=== PATIENT | male | born 1930 | race Caucasian/White ===

== ENCOUNTER → 2017-02-15 | Outpatient (CLI) | payer OTHER ==
[~2017-02-15] MED LIST: ACET-24 PO; ALL300 PO; ASPI1TAB83 PO; Boost PO; DIPH1TAB87 PO; FINA5TAB4 PO; FLEC100T21 PO; LPR25 PO; NF1094 PO; ONDA4TAB7 SL; PRT40 PO; TRIA0.1C20 TOP; TRMO115 TOP
[2017-02-15 13:24] LABS: HEMATOCRIT 35.9 % (42-52); MEAN CELL VOLUME 94.7 fL (80-100); MEAN CORPUSCULAR HEMOGLOBIN 30.3 pg (25-34); MEAN PLATELET VOLUME 11.1 fL (7.4-10.4); PLATELET COUNT 644 K/uL (130-400); RED BLOOD COUNT 3.79 M/uL (4.7-6.1); WHITE BLOOD COUNT 15.45 K/uL (4.8-10.8)
[2017-02-15 13:40] LABS: ESTIMATED AVERAGE GLUCOSE 120 mg/dl; HA1C FLAG Normal (Normal)
[2017-02-15 13:52] LABS: CALCIUM 9.5 mg/dl (8.5-10.1)
[2017-02-15 13:53] LABS: ALT/SGPT 17 U/L (12-78); BLOOD UREA NITROGEN 23 mg/dl (7-18); BUN/CREATININE RATIO 21.1 (10-20); CARBON DIOXIDE 29 mmol/L (21-32); CHLORIDE 106 mmol/L (98-107); CHOLESTEROL 145 mg/dl (0-200); GLUCOSE 97 mg/dl (70-99); POTASSIUM 4.3 mmol/L (3.5-5.1); SODIUM 141 mmol/L (136-145); TRIGLYCERIDES 197 mg/dl (0-150); VERY LOW DENSITY LIPOPROT CALC 39 mg/dl
[2017-02-15 14:11] LABS: ALB/GLOB RATIO 1.6 (0.9-2); ALKALINE PHOSPHATASE 47 U/L (45-117); AST/SGOT 20 U/L (15-37); CHOLESTEROL/HDL RATIO 4.8; HDL CHOLESTEROL 30 mg/dl
[2017-02-15 14:27] LABS: ECHINOCYTES 1+; TEAR DROP CELLS 1+
[2017-02-15 14:34] LABS: BASO ABS # 0.14 K/uL (0-0.2); BASOPHIL % 0.9 % (0-2); COMPLETE YES; EOSINOPHIL % 1.8 %; LYMPH ABS # 0.54 K/uL (1.2-3.4); LYMPHOCYTE % 3.5 %; MYELOCYTE % 1.8 %; NEUTROPHILS % 87.6 %
== END | disposition home or self-care (01) ==
LOC: C.LABSPEC 12:18
PROVIDERS: ATTEND Internal Medicine
DX: R73.9 Hyperglycemia, unspecified (principal); E78.5 Hyperlipidemia, unspecified; R53.83 Other fatigue; D47.3 Essential (hemorrhagic) thrombocythemia

== ENCOUNTER → 2017-03-28 | Day surgery (SDC) | payer OTHER ==
[2017-03-24 08:30] VITALS: Ht 182.9 cm; Wt 75.9 kg
[~2017-03-28] VITALS: Ht 182.9 cm; Wt 75.9 kg
[~2017-03-28] MED LIST changes: +ATROPINE SULFATE 0.1 MG/ML 5ML SYR IV PRN; +EpHEDrine SULFATE INJ 50 MG/ML AMP IV PRN; +FENTANYL CITRATE INJ 50 MCG/1 ML 2 ML VIAL ONE; +LIDOCAINE HCL 2% 2 ML VIAL (20MG/ML) ONE; -ONDA4TAB7 SL; +PROPOFOL IV EMULSION 10 MG/ML 20 ML VIAL IV ONE
--- NOTE | 2017-03-28 14:48 | Endo History and Physical ---
History & Physical Date of Service: Mar 28, 2017. Chief Complaint: dysphagia Referring Physician: Dr. Mireya Dennis History of Present Illness For EGD Past Surgical History Hx Cardiac Surgery: No Hx Internal Defibrillator: No Hx Pacemaker: No Hx Abdominal Surgery: No Hx of Implantable Prosthesis: No Hx Post-Op Nausea and Vomiting: No Hx Cancer Surgery: No Hx Thoracic Surgery: No Hx Orthopedic: Yes (R/L RCR) Hx Urinary Tract Surgery: Yes (TURP) Family History None Social History Smoking Status: Never Smoker Hx Substance Use: No Hx Alcohol Use: Yes (RARE) Allergies Coded Allergies: Sulfa Antibiotics (Verified Adverse Reaction, Unknown, JOINT PAIN, 03/28/17 ) Current Medications Reported Home Medications Medications Dose Route/Sig Max Daily Dose Days Date Category Dose Instructions Tambocor (Flecainide Acetate) 100 Mg Tab 100 Mg PO BID 12/21/14 Reported Aristocort 0.1% (Triamcinolone Acetonide) Cr 1 Appln TOP BID 06/30/14 Reported apply to arms,chest and facial areas Lopressor (Metoprolol Tartrate) 25 Mg Tab 25 Mg PO BID 06/30/14 Reported Aspirin 81 Mg Tab 81 Mg PO QAM 06/30/14 Reported Proscar (Finasteride) 5 Mg Tab 5 Mg PO QAM 06/30/14 Reported Vital Signs Weight (Kilograms): 75.91 Height (Feet): 6 Height (Inches): 0 Physical Exam General Appearance: WD/WN, + pertinent finding (Vitiligo) Respiratory/Chest: Respiratory effort: no dyspnea Cardiovascular: Heart Auscultation: RRR Abdomen: Inspection & Palpation: soft Assessment and Plan Dysphagia for EGD
--- NOTE | 2017-03-28 15:21 | Discharge Instructions ---
Endoscopy Patient Instructions Date / Procedure(s) Performed Mar 28, 2017. EGD Allergy Information Coded Allergies: Sulfa Antibiotics (Verified Adverse Reaction, Unknown, JOINT PAIN, 03/28/17 ) Discharge Date / Findings Mar 28, 2017. esophageal compression Medication Instructions Restart Stopped Medication(s): resume meds Reported Home Medications Medications Dose Route/Sig Max Daily Dose Days Date Category Dose Instructions Tambocor (Flecainide Acetate) 100 Mg Tab 100 Mg PO BID 12/21/14 Reported Aristocort 0.1% (Triamcinolone Acetonide) Cr 1 Appln TOP BID 06/30/14 Reported apply to arms,chest and facial areas Lopressor (Metoprolol Tartrate) 25 Mg Tab 25 Mg PO BID 06/30/14 Reported Aspirin 81 Mg Tab 81 Mg PO QAM 06/30/14 Reported Proscar (Finasteride) 5 Mg Tab 5 Mg PO QAM 06/30/14 Reported Provider Instructions Activity Restrictions - No exercising or heavy lifting for 24 hours. - Do not drink alcohol the day of the procedure. - Do not drive a car or operate machinery until the day after the procedure. - Do not make any important decisions or sign important papers in 24 hours after the procedure. Following Day: - Return to full activity which may include returning to work/school. Diet Start your diet with liquids and light foods (jello, soup, juice, toast). Then eat your usual diet if not nauseated. Treatment For Common After Affects For mild abdominal pain, bloating, or excessive gas: - Rest - Eat lightly - Lie on right side Follow-Up Information Follow-up with Dr. Mireya Dennis as scheduled Anesthesia Information What You Should Know You have had a procedure that required some medicine to reduce anxiety and discomfort. This treatment is called moderate sedation. After receiving the treatment, you may be sleepy, but you will be able to breathe on your own. The effects of the treatment may last for several hours. Follow these instructions along with Activity/Diet recommendations noted above: * Do NOT do anything where dizziness or clumsiness would be dangerous. * Rest quietly at home today, then you can be up and about tomorrow. * Have a responsible person stay with you the rest of today. * You may have had an I.V. today. If so, you may take the dressing off later today. Recommendations Call your doctor if: * Trouble breathing * Continuous vomiting for more than 24 hours * Temperature above 101 degrees * Severe abdominal pain or bloating * Pain not relieved by pain medicine ordered * There is increased drainage or redness from any incision * A large amount of rectal bleeding greater than 2-3 tablespoons. (If you had a polyp/s removed or have hemorrhoids, a small amount of blood - from the rectum is to be expected.) * You have any unanswered questions or concerns. IN THE EVENT OF A SERIOUS EMERGENCY, GO TO THE NEAREST EMERGENCY ROOM Your discharge instructions were prepared by provider Adrien Zavala. Patient Instructions Signature Page Alcides Guo Patient (or Guardian) Signature/Date: I have read and understand the instructions given to me by my caregivers. Caregiver/RN/Doctor Signature/Date: The above-named patient and/or guardian has received patient instructions on this date. + Original Patient Signature Page (only) stays with chart. Please make copy for patient.
--- NOTE | 2017-03-28 15:25 | GI REPORT ---
Procedure Date: 03/28/2017 2:54 PM Procedure: Upper GI endoscopy Indications: Dysphagia Medicines: Fentanyl 100 micrograms IV, Propofol total dose 100 mg IV, Lidocaine 40 mg IV Complications: No immediate complications. Estimated Blood Loss: Estimated blood loss: none. Procedure: Pre-Anesthesia Assessment: - Prior to the procedure, a History and Physical was performed, and patient medications, allergies and sensitivities were reviewed. The patient's tolerance of previous anesthesia was reviewed. - The risks and benefits of the procedure and the sedation options and risks were discussed with the patient. All questions were answered and informed consent was obtained. After obtaining informed consent, the endoscope was passed under direct vision. Throughout the procedure, the patient's blood pressure, pulse, and oxygen saturations were monitored continuously. The Scope was introduced through the mouth, and advanced to the second part of duodenum. The upper GI endoscopy was accomplished without difficulty. The patient tolerated the procedure well. Findings: A moderate-sized area of extrinsic compression was found at the cricopharyngeus. The entire examined stomach was normal. The examined duodenum was normal. 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 - Normal stomach. - Normal examined duodenum. - No specimens collected. Recommendation: - Discharge patient to home (ambulatory). - Perform a lateral chest x-ray at appointment to be scheduled. - Continue present medications. - Return to primary care physician PRN. Adrien Zavala M.D. Adrien Zavala MD 03/28/2017 3:25:30 PM This report has been signed electronically. Note Initiated On: 03/28/2017 2:54 PM I attest to the content of the Intraoperative Record and orders documented therein, exceptions below
--- NOTE | 2017-03-28 15:26 | Anesthesiology Progress Note ---
Anesthesia Post Op Note Date & Time Mar 28, 2017 at 15:26 Vital Signs Pain Intensity: 0 Vital Signs Past 12 Hours Date Time Temp Pulse Resp B/P (MAP) Pulse Ox O2 Delivery O2 Flow Rate FiO2 03/28/17 14:53 36.5 56 20 151/76 (101) 95 Room Air Notes Mental Status: alert / awake / arousable, participated in evaluation Pt Amnestic to Procedure: Yes Nausea / Vomiting: adequately controlled Pain: adequately controlled Airway Patency, RR, SpO2: stable & adequate BP & HR: stable & adequate Hydration State: stable & adequate Anesthetic Complications: no major complications apparent
[2017-03-28 15:42] VITALS: BP 91/47; PULSE 49; TEMP 36.5; O2SAT 94
== END | disposition home or self-care (01) ==
LOC: C.GI 14:22
PROVIDERS: ATTEND Internal Medicine Gastroenterology
DX: R13.10 Dysphagia, unspecified (principal)

== ENCOUNTER → 2017-03-31 | Outpatient (CLI) | payer OTHER ==
[~2017-03-31] MED LIST changes: -ACET-24 PO; -ALL300 PO; -ATROPINE SULFATE 0.1 MG/ML 5ML SYR IV PRN; -Boost PO; -DIPH1TAB87 PO; -EpHEDrine SULFATE INJ 50 MG/ML AMP IV PRN; -FENTANYL CITRATE INJ 50 MCG/1 ML 2 ML VIAL ONE; -LIDOCAINE HCL 2% 2 ML VIAL (20MG/ML) ONE; -NF1094 PO; -PROPOFOL IV EMULSION 10 MG/ML 20 ML VIAL IV ONE; -PRT40 PO; -TRMO115 TOP
--- NOTE | 2017-03-31 12:25 | DIAGNOSTIC IMAGING REPORT ---
CERVICAL SPINE 7 VIEWS HISTORY: Pain. Neuropathy. NECK PAIN COMPARISON: None. FINDINGS: The cervical spine is visualized from C1 through the superior endplate of T1. There is no fracture. No subluxation. Moderate degenerative disc change throughout Prevertebral soft tissues and the atlantodens interval are intact. 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 Electronically signed by: Alvaro Lopez M.D. 03/31/2017 12:24 PM Dictated Date/Time: 03/31/2017 12:23 PM
== END | disposition home or self-care (01) ==
LOC: C.RAD 11:19
PROVIDERS: ATTEND Internal Medicine
DX: M54.2 Cervicalgia (principal); M50.30 Other cervical disc degeneration, unspecified cervical region

== ENCOUNTER → 2017-07-02 | Outpatient (CLI) | payer OTHER | END | disposition home or self-care (01) | LOC: C.LABSPEC 15:23 | PROVIDERS: ATTEND Internal Medicine | DX: Z12.11 Encounter for screening for malignant neoplasm of colon (principal) ==

== ENCOUNTER → 2017-07-04 | Outpatient (CLI) | payer OTHER ==
[2017-07-04 15:48] LABS: HEMATOCRIT 35.3 % (42-52); MEAN CELL VOLUME 93.1 fL (80-100); MEAN CORPUSCULAR HEMOGLOBIN 30.3 pg (25-34); MEAN CORPUSCULAR HGB CONC 32.6 g/dl (32-36); MEAN PLATELET VOLUME 11.3 fL (7.4-10.4); PLATELET COUNT 662 K/uL (130-400); RED BLOOD COUNT 3.79 M/uL (4.7-6.1)
[2017-07-04 15:56] LABS: ALT/SGPT 16 U/L (12-78); AMYLASE 35 U/L (25-115); AST/SGOT 22 U/L (15-37); BLOOD UREA NITROGEN 18 mg/dl (7-18); BUN/CREATININE RATIO 16.2 (10-20); CALCIUM 9.3 mg/dl (8.5-10.1); CARBON DIOXIDE 27 mmol/L (21-32); CHLORIDE 106 mmol/L (98-107); GLUCOSE 96 mg/dl (70-99); POTASSIUM 4.5 mmol/L (3.5-5.1); SODIUM 140 mmol/L (136-145)
[2017-07-04 16:08] LABS: ALB/GLOB RATIO 1.3 (0.9-2); ALKALINE PHOSPHATASE 56 U/L (45-117); THYROID STIMULATING HORMONE 0.818 uIu/ml (0.300-4.500)
[2017-07-04 16:18] LABS: BASO ABS # 0.26 K/uL (0-0.2); BASOPHIL % 1.8 % (0-2); COMPLETE YES; EOSINOPHIL % 0.9 %; LYMPH ABS # 0.76 K/uL (1.2-3.4); LYMPHOCYTE % 5.3 %; MYELOCYTE % 4.4 %; NEUTROPHILS % 81.5 %; POIKILOCYTOSIS PRESENT
== END | disposition home or self-care (01) ==
LOC: C.LABSPEC 15:25
PROVIDERS: ATTEND Internal Medicine
DX: R10.9 Unspecified abdominal pain (principal); R63.4 Abnormal weight loss; R19.7 Diarrhea, unspecified

== ENCOUNTER → 2017-07-20 | Day surgery (SDC) | payer OTHER ==
[2017-07-19 09:11] VITALS: BMI 23.0
[~2017-07-20] VITALS: Ht 175.3 cm; Wt 71.8 kg
[~2017-07-20] MED LIST changes: +DIPH1TAB PO; +LIDOCAINE HCL 2% 2 ML VIAL (20MG/ML) ONE; +PROPOFOL IV EMULSION 10 MG/ML 20 ML VIAL IV ONE; +SODIUM CHLORIDE 0.9% 500ML 500 ML IV ONE; -TRIA0.1C20 TOP; +TRMO115 TOP
[2017-07-20 13:31] VITALS: Ht 175.3 cm; Wt 71.8 kg
--- NOTE | 2017-07-20 13:34 | Endo History and Physical ---
History & Physical Date of Service: Jul 20, 2017. Chief Complaint: Referring Physician: History of Present Illness Mr. Guo is a 87 year old male wit history of dysphagia, cardiac dysrhythmia and an unspecified myeloproliferative disorder seen in the office for evaluation of diarrhea and weight loss at the request of Dr. Mireya Dennis. Pt was seen and evaluated, chart reviewed. He tells me he [facility]. He tells me has a history of constipation, with change in stool caliber. We started on metamucil with new onset diarrhea about 6 months. Metamucil was stopped but symptoms continuted. He is having between 3-6 stools daily. Brown in color. No black or bloody stools. There is abdominal cramping before a BM that is relieved after a BM. He has been using imodium PRN. With this stools are still watery, but less frequent, maybe 3 stools daily. There is less urgency. He continues to have dysphagia. He had an EGD w/ Dr. Zavala in March for his symptoms with evidence of extrinsic compression at the cricopharyngeus, does not appear he was dilated. He tells me he has had an EGD in the past with dilation with resolution of his symptoms. He does not have have any epigastric pain, nausea, regurgitation, vomiting. He is following up with Dr. Bowen for an unspecified myeloproliferative disorder. Hx of 15-20 lb unintentional weight loss over the past 2-4 months. No fever, chills, CP, SOB. 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 ABD US 04/08/16: No gallstones or biliary ductal dilatation.~Possible fatty infiltration of the liver.~Moderate splenomegaly, increased since ultrasound June 22, 2011.~~Partially obscured pancreas. Colonoscopy 2009: diverticulosis Past Surgical History Hx Cardiac Surgery: Yes (CARDIAC ABLATION - UNSUCCESSFUL) Hx Internal Defibrillator: No Hx Pacemaker: No Hx Abdominal Surgery: No Hx of Implantable Prosthesis: No Hx Post-Op Nausea and Vomiting: No Hx Cancer Surgery: Yes (SKIN CANCER REMOVAL) Hx Thoracic Surgery: No Hx Orthopedic: Yes (RT/LT RCR) Hx Urinary Tract Surgery: Yes (TURP) Family History None Social History Smoking Status: Former Smoker Hx Substance Use: No Hx Alcohol Use: No Allergies Coded Allergies: Sulfa Antibiotics (Verified Adverse Reaction, Unknown, JOINT PAIN, ) Current Medications Reported Home Medications Medications Dose Route/Sig Max Daily Dose Days Date Category Triamcinolone Acetonide (Triamcinolone Acet) 45 Appln/15 Gm Oint 1 Appln TOP BID 07/19/17 Reported Benadryl Allergy (Diphenhydramine Hcl) 25 Mg Tab 1 Tab PO QAM PRN 07/19/17 Reported Tambocor (Flecainide Acetate) 100 Mg Tab 100 Mg PO BID 12/21/14 Reported Lopressor (Metoprolol Tartrate) 25 Mg Tab 25 Mg PO BID 06/30/14 Reported Aspirin 81 Mg Tab 81 Mg PO QAM 06/30/14 Reported Proscar (Finasteride) 5 Mg Tab 5 Mg PO QAM 06/30/14 Reported Vital Signs Weight (Kilograms): 71.82 Height (Feet): 5 Height (Inches): 9 Physical Exam General Appearance: WD/WN, no apparent distress Respiratory/Chest: Respiratory effort: no dyspnea Auscultation: breath sounds normal Cardiovascular: Apical Impulse: not displaced Heart Auscultation: RRR, normal S1 Abdomen: Inspection & Palpation: soft, non-distended Assessment and Plan 87 yo presenting for EGD/Colonoscopy for weight loss, dysphagia and diarrhea.
[2017-07-20 13:37] VITALS: TEMP 36.4
--- NOTE | 2017-07-20 15:13 | GI REPORT ---
Procedure Date: 07/20/2017 2:40 PM Procedure: Upper GI endoscopy Indications: Dysphagia Medicines: General Anesthesia Complications: No immediate complications. Estimated blood loss: None. Estimated Blood Loss: Estimated blood loss: none. Procedure: Pre-Anesthesia Assessment: - Pre-Anesthesia Assessment: - Prior to the procedure, a History and Physical was performed, and patient medications, allergies and sensitivities were reviewed. The patient's tolerance of previous anesthesia was reviewed. Please see Xytis for complete details. - The risks and benefits of the procedure and the sedation options and risks were discussed with the patient. All questions were answered and informed consent was obtained. - Patient identification and proposed procedure were verified prior to the procedure by the physician and the nurse. The procedure was verified in the pre-procedure area in the procedure room. After obtaining informed consent, the endoscope was passed carefully and meticuously under direct vision and only advanced when the lumen was clearly identified, C02 insuflation was utilized throughout the entirity of the procedure. Throughout the procedure, the patient's blood pressure, pulse, and oxygen saturations were monitored continuously. After obtaining informed consent, the endoscope was passed under direct vision. Throughout the procedure, the patient's blood pressure, pulse, and oxygen saturations were monitored continuously. The scope was introduced through the mouth, and advanced to the second part of duodenum. The upper GI endoscopy was accomplished without difficulty. The patient tolerated the procedure well. Findings: A hiatus hernia was present. No endoscopic abnormality was evident in the esophagus to explain the patient's complaint of dysphagia. It was decided, however, to proceed with dilation at the gastroesophageal junction. A TTS dilator was passed through the scope. Dilation with a 15-16.5-18 mm balloon (to a maximum balloon size of 16.5 mm) dilator was performed. The entire examined stomach was normal. The examined duodenum was normal. Impression: - Hiatus hernia. - No endoscopic esophageal abnormality to explain patient's dysphagia. Esophagus dilated. Dilated. - Normal stomach. - Normal examined duodenum. - No specimens collected. Recommendation: - Discharge patient to home (with escort). - Return to referring physician as previously scheduled. - Continue present medications. - Return to GI clinic. Otilio Sawyer MD 07/20/2017 3:13:10 PM This report has been signed electronically. Note Initiated On: 07/20/2017 2:40 PM I attest to the content of the Intraoperative Record and orders documented therein, exceptions below
--- NOTE | 2017-07-20 15:17 | GI REPORT ---
Procedure Date: 07/20/2017 2:39 PM Procedure: Colonoscopy Indications: Chronic diarrhea Medicines: General Anesthesia Complications: No immediate complications. Estimated blood loss: None. Estimated Blood Loss: Estimated blood loss: none. Procedure: Pre-Anesthesia Assessment: - Pre-Anesthesia Assessment: - Prior to the procedure, a History and Physical was performed, and patient medications, allergies and sensitivities were reviewed. The patient's tolerance of previous anesthesia was reviewed. Please see Xtone for complete details. - The risks and benefits of the procedure and the sedation options and risks were discussed with the patient. All questions were answered and informed consent was obtained. - Patient identification and proposed procedure were verified prior to the procedure by the physician and the nurse. The procedure was verified in the pre-procedure area in the procedure room. After obtaining informed consent, the endoscope was passed carefully and meticuously under direct vision and only advanced when the lumen was clearly identified, C02 insuflation was utilized throughout the entirity of the procedure. Throughout the procedure, the patient's blood pressure, pulse, and oxygen saturations were monitored continuously. After I obtained informed consent, the scope was passed under direct vision. Throughout the procedure, the patient's blood pressure, pulse, and oxygen saturations were monitored continuously. The scope was introduced through the anus and advanced to the terminal ileum, with identification of the appendiceal orifice and IC valve. The colonoscopy was performed without difficulty. The patient tolerated the procedure well. The quality of the bowel preparation was good. Findings: Multiple small-mouthed diverticula were found in the sigmoid colon and in the descending colon. Biopsies for histology were taken with a cold forceps from the entire colon for evaluation of microscopic colitis. The terminal ileum appeared normal. Internal hemorrhoids were found during retroflexion. Impression: - Diverticulosis in the sigmoid colon and in the descending colon. Biopsied. - The examined portion of the ileum was normal. - Internal hemorrhoids. Recommendation: - Await pathology results. - Consider Pepto-bismol or cholestyramine pending pathology - Follow up in GI clinic Otilio Sawyer MD 07/20/2017 3:17:05 PM This report has been signed electronically. Note Initiated On: 07/20/2017 2:39 PM I attest to the content of the Intraoperative Record and orders documented therein, exceptions below
--- NOTE | 2017-07-20 15:28 | Discharge Instructions ---
Endoscopy Patient Instructions Date / Procedure(s) Performed Jul 20, 2017. Colonoscopy, EGD Allergy Information Coded Allergies: Sulfa Antibiotics (Verified Adverse Reaction, Unknown, JOINT PAIN, ) Discharge Date / Findings Jul 20, 2017. EGD Impression: - Hiatus hernia. - No endoscopic esophageal abnormality to explain patient's dysphagia. Esophagus dilated. Dilated. - Normal stomach. - Normal examined duodenum. - No specimens collected. Recommendation: - Discharge patient to home (with escort). - Return to referring physician as previously scheduled. - Continue present medications. - Return to GI clinic. Colonoscopy Impression: - Diverticulosis in the sigmoid colon and in the descending colon. Biopsied. - The examined portion of the ileum was normal. - Internal hemorrhoids. Recommendation: - Await pathology results. - Consider Pepto-bismol or cholestyramine pending pathology - Follow up in GI clinic Medication Instructions Stopped Medication(s): ASPRIN Provider Instructions Activity Restrictions - No exercising or heavy lifting for 24 hours. - Do not drink alcohol the day of the procedure. - Do not drive a car or operate machinery until the day after the procedure. - Do not make any important decisions or sign important papers in 24 hours after the procedure. Following Day: - Return to full activity which may include returning to work/school. Diet Start your diet with liquids and light foods (jello, soup, juice, toast). Then eat your usual diet if not nauseated. Treatment For Common After Affects For mild abdominal pain, bloating, or excessive gas: - Rest - Eat lightly - Lie on right side Follow-Up Information Follow-up with DR. ALFONSO JARA as scheduled Anesthesia Information What You Should Know You have had a procedure that required some medicine to reduce anxiety and discomfort. This treatment is called moderate sedation. After receiving the treatment, you may be sleepy, but you will be able to breathe on your own. The effects of the treatment may last for several hours. Follow these instructions along with Activity/Diet recommendations noted above: * Do NOT do anything where dizziness or clumsiness would be dangerous. * Rest quietly at home today, then you can be up and about tomorrow. * Have a responsible person stay with you the rest of today. * You may have had an I.V. today. If so, you may take the dressing off later today. Recommendations Call your doctor if: * Trouble breathing * Continuous vomiting for more than 24 hours * Temperature above 101 degrees * Severe abdominal pain or bloating * Pain not relieved by pain medicine ordered * There is increased drainage or redness from any incision * A large amount of rectal bleeding greater than 2-3 tablespoons. (If you had a polyp/s removed or have hemorrhoids, a small amount of blood - from the rectum is to be expected.) * You have any unanswered questions or concerns. IN THE EVENT OF A SERIOUS EMERGENCY, GO TO THE NEAREST EMERGENCY ROOM Your discharge instructions were prepared by provider Otilio Sawyer. Patient Instructions Signature Page Alcides Guo Patient (or Guardian) Signature/Date: I have read and understand the instructions given to me by my caregivers. Caregiver/RN/Doctor Signature/Date: The above-named patient and/or guardian has received patient instructions on this date. + Original Patient Signature Page (only) stays with chart. Please make copy for patient.
[2017-07-20 15:46] VITALS: BP 143/79; PULSE 52; O2SAT 100
--- NOTE | 2017-07-20 15:51 | Anesthesiology Progress Note ---
Anesthesia Post Op Note Date & Time Jul 20, 2017 at 15:51 Vital Signs Pain Intensity: 0 Vital Signs Past 12 Hours Date Time Temp Pulse Resp B/P (MAP) Pulse Ox O2 Delivery O2 Flow Rate FiO2 07/20/17 15:46 52 18 143/79 (100) 100 Room Air 07/20/17 15:31 49 18 131/86 (101) 98 Room Air 07/20/17 15:16 49 18 126/63 (84) 96 Room Air 07/20/17 13:37 36.4 48 20 162/78 (106) 98 Room Air Notes Mental Status: alert / awake / arousable, participated in evaluation Pt Amnestic to Procedure: Yes Nausea / Vomiting: adequately controlled Pain: adequately controlled Airway Patency, RR, SpO2: stable & adequate BP & HR: stable & adequate Hydration State: stable & adequate Anesthetic Complications: no major complications apparent
== END | disposition home or self-care (01) ==
LOC: C.GI 12:22
PROVIDERS: ATTEND Internal Medicine
DX: K52.9 Noninfective gastroenteritis and colitis, unspecified (principal); K57.30 Diverticulosis of large intestine without perforation or abscess without bleeding; K64.8 Other hemorrhoids; R13.10 Dysphagia, unspecified; K44.9 Diaphragmatic hernia without obstruction or gangrene; I49.9 Cardiac arrhythmia, unspecified; C94.6 Myelodysplastic disease, not elsewhere classified; Z87.891 Personal history of nicotine dependence; Z79.82 Long term (current) use of aspirin; Z79.899 Other long term (current) drug therapy

== ENCOUNTER 2017-08-14 16:10 | Inpatient (IN) | payer OTHER ==
[~2017-08-14] VITALS: Ht 175.3 cm; Wt 70.2 kg
[~2017-08-14 16:10] MED LIST changes: -DIPH1TAB PO; +DIPH1TAB87 PO; -LIDOCAINE HCL 2% 2 ML VIAL (20MG/ML) ONE; -PROPOFOL IV EMULSION 10 MG/ML 20 ML VIAL IV ONE; -SODIUM CHLORIDE 0.9% 500ML 500 ML IV ONE
[2017-08-14] MEDS ORDERED: GI COCKTAIL PO STA (16:27)
[2017-08-14] MEDS ORDERED: ONDANSETRON INJ 2 MG/ML 2 ML VIAL IV STA (16:27)
[2017-08-14] MEDS ORDERED: SODIUM CHLORIDE 0.9% 500ML 500 ML IV STA (16:27)
[2017-08-14] MEDS ORDERED: FAMOTIDINE 20 MG TAB PO ONE (16:30)
[2017-08-14] MEDS ORDERED: LIDOCAINE HCL 2% VISC SOLN 20 ML UDC ONE (16:34)
[2017-08-14] MEDS ORDERED: ALUMINUM/MAGNESIUM SUSP 30 ML UDC ONE (16:34)
--- NOTE | 2017-08-14 16:34 | EMERGENCY ROOM VISIT NOTE ---
History Report prepared by Janessa: Aubrey Rascon Under the Supervision of: Dr. Parag Perkins M.D. First contact with patient: 16:16 Chief Complaint: GI ASSESSMENT Stated Complaint: COLITIS History of Present Illness The patient is an 87 year old male with a past medical history of colitis and thrombocytosis who presents to the ED with a cc of worsening diarrhea beginning three weeks ago. Positive for weight loss, right abdominal pain and weakness. Negative for bloody diarrhea, recent travel and antibiotic use. The patient states that he was constantly constipated four months ago and was put on Citrucel for his symptoms. He notes that the medication caused him to develop diarrhea that has worsened since then. He denies any blood in his diarrhea, but reports that there is a green mucous. He states that he has also taken Pepto Bismol and had a colonoscopy with no relief to his symptoms. The patient notes that he drank spring water when he went to camp recently, but notes that no other campers became sick. Source of History: patient Onset: three weeks ago Position: abdomen Quality: other (diarrhea) Timing: worsening Associated Symptoms: + abdominal pain Note: he denies any bloody diarrhea but nots that there is a mucous in his diarrhea Review of Systems See HPI for pertinent positives and negatives. A total of ten systems were reviewed and were otherwise negative. Past Medical & Surgical Medical Problems: (1) Colitis (2) DIARRHEA, ? METASTATIC DISEASE (3) Thrombocytosis (4) UTI (urinary tract infection) (5) Vitiligo Surgical Problems: (1) H/O prior ablation treatment (2) H/O prostatectomy Family History Cancer Hypertension No significant family history Stroke Social History Smoking Status: Never Smoker Alcohol Use: occasionally Marital Status: Occupation Status: retired Current/Historical Medications Scheduled Aspirin (Aspirin), 81 MG PO QAM Finasteride (Proscar), 5 MG PO QAM Flecainide (Tambocor), 100 MG PO BID Metoprolol Tartrate (Lopressor), 25 MG PO BID Triamcinolone Acet (Triamcinolone Acetonide), 1 APPLN TOP BID Scheduled PRN Diphenhydramine Hcl (Benadryl Allergy), 1 TAB PO QAM PRN for ALLERGIES Allergies Coded Allergies: Sulfa Antibiotics (Verified Adverse Reaction, Unknown, JOINT PAIN, ) Physical Exam Vital Signs Date Time Temp Pulse Resp B/P (MAP) Pulse Ox O2 Delivery O2 Flow Rate FiO2 08/14/17 19:39 37.9 75 18 95/73 94 Room Air 08/14/17 18:40 75 24 121/68 95 08/14/17 17:40 71 21 146/76 95 Room Air 08/14/17 17:14 71 08/14/17 16:14 82 16 126/72 98 Physical Exam GENERAL: Awake, alert, nontoxic appearing, NAD HENT: Normocephalic, atraumatic. EYES: Normal conjunctiva. Sclera non-icteric. NECK: Supple. No nuchal rigidity. FROM. RESPIRATORY: CTAB, no rhonchi, wheezing, crackles CARDIAC: RRR, no MRG ABDOMEN: Soft, NTND, BS+, epigastric and RUQ pain, negative obturators, negative psoas MSK: No chest wall TTP, no LE edema NEURO: GCS 15, CN 2-12 intact, moves all 4s on command SKIN: No rash or jaundice noted. Medical Decision & Procedures ER Provider Diagnostic Interpretation: Radiology results as stated below per my review and radiologist interpretation: ABDOMEN AND PELVIS CT WITH IV CONTRAST FINDINGS: There are multiple bibasilar lobular soft tissue attenuating pulmonary nodules, largest of which is within the posterior basal segment left lower lobe, 1.6 cm in greatest dimension. There is no pneumoperitoneum. The imaged inferior cardiac chambers are mildly enlarged. Coronary arterial calcifications noted. There are innumerable ill-defined low attenuating lesions scattered throughout the hepatic parenchyma, largest of which measure up to 2.5 x 1.9 cm within the right hepatic lobe. The remainder of the lesions measure in the 1-2 cm range. No intrahepatic biliary ductal dilation identified. Splenomegaly redemonstrated measuring up to 17 cm in length, progressed from prior ultrasound 04/08/2016. Ill-defined 5 mm low attenuating focus is noted within the inferior spleen. The gallbladder, pancreas and adrenal glands are unremarkable. Mild atrophy of the left kidney. Low attenuating lesions of the bilateral kidneys are seen, most which are too small to characterize suggesting cyst. The largest lesion is within the inferior pole right kidney, 1.4 cm. There is no renal calculi or hydronephrosis identified. Urinary bladder is unremarkable. Prostamegaly. Mild to moderate atherosclerosis of the abdominal aorta without aneurysm. There is no bulky adenopathy identified. Small sliding-type hiatal hernia. There is no bowel obstruction. Fluid-filled rectosigmoid is noted. Extensive colonic diverticulosis without diverticulitis. Areas of wall thickening noted throughout the sigmoid colon without definite evidence of acute diverticulitis or focal colonic mass. The appendix appears normal. Soft tissues are unremarkable. The bones appear mildly demineralized without suspicious lytic or blastic bony lesions identified. Degenerative changes are seen throughout the spine. IMPRESSION: 1. Innumerable ill-defined low attenuating lesions throughout the liver, largest of which measures up to 2.5 cm are compatible with metastatic disease from unknown primary. 2. Multiple lobulated soft tissue attenuating noncalcified solid pulmonary nodules of the lung bases measuring up to 1.6 cm are also compatible with metastatic disease. 3. Extensive sigmoid colon diverticulosis with areas of wall thickening. No definite evidence of acute diverticulitis or colonic mass. Correlate with colonoscopy. 4. Fluid-filled rectosigmoid suggests diarrheal state. 5. Splenomegaly, increased from comparison ultrasound 04/08/2016. 6. Prostamegaly. Electronically signed by: Nasir Dalal M.D. 08/14/2017 6:31 PM Laboratory Results 08/14/17 16:45 Red Blood Count 3.70, Mean Corpuscular Volume 90.8, Mean Corpuscular Hemoglobin 30.5, Mean Corpuscular Hemoglobin Concent 33.6, Mean Platelet Volume 11.0 08/14/17 16:45 Test 08/14/17 00:00 08/14/17 16:45 Urine Color YELLOW Urine Appearance CLEAR (CLEAR) Urine pH 5.0 (4.5-7.5) Urine Specific [place] 1.023 (1.000-1.030) Urine Protein NEG (NEG) Urine Glucose (UA) NEG (NEG) Urine Ketones TRACE (NEG) Urine Occult Blood NEG (NEG) Urine Nitrite NEG (NEG) Urine Bilirubin NEG (NEG) Urine Urobilinogen NEG (NEG) Urine Leukocyte Esterase NEG (NEG) White Blood Count 19.69 K/uL (4.8-10.8) Red Blood Count 3.70 M/uL (4.7-6.1) Hemoglobin 11.3 g/dL (14.0-18.0) Hematocrit 33.6 % (42-52) Mean Corpuscular Volume 90.8 fL (80-100) Mean Corpuscular Hemoglobin 30.5 pg (25-34) Mean Corpuscular Hemoglobin Concent 33.6 g/dl (32-36) Platelet Count 586 K/uL (130-400) Mean Platelet Volume 11.0 fL (7.4-10.4) RDW Standard Deviation 50.9 fL (36.4-46.3) RDW Coefficient of Variation 15.3 % (11.5-14.5) Neutrophils % (Manual) 84.8 % Lymphocytes % (Manual) 3.4 % Monocytes % (Manual) 6.7 % Basophils % (Manual) 1.7 % (0-2) Metamyelocytes % 1.7 % Myelocytes % 1.7 % Neutrophils # (Manual) 16.70 K/uL (1.4-6.5) Total Absolute Neutrophils 16.70 K/uL (1.4-6.5) Lymphocytes # (Manual) 0.67 K/uL (1.2-3.4) Total Absolute Lymphocytes 0.67 K/uL (1.2-3.4) Monocytes # (Manual) 1.32 K/uL (0.11-0.59) Basophils # (Manual) 0.33 K/uL (0-0.2) Metamyelocytes # 0.33 K/uL (0-0) Myelocytes # 0.33 K/uL (0-0) Tear Drop Cells 1+ Ovalocytes 1+ Prothrombin Time 12.7 SECONDS (9.0-12.0) Prothromb Time International Ratio 1.2 (0.9-1.1) Activated Partial Thromboplast Time 33.5 SECONDS (21.0-31.0) Partial Thromboplastin Ratio 1.3 Anion Gap 8.0 mmol/L (3-11) Est Creatinine Clear Calc Drug Dose 46.2 ml/min Estimated GFR () 66.9 Estimated GFR (Non- 57.7 BUN/Creatinine Ratio 20.0 (10-20) Calcium Level 8.6 mg/dl (8.5-10.1) Total Bilirubin 0.6 mg/dl (0.2-1) Direct Bilirubin 0.1 mg/dl (0-0.2) Aspartate Amino Transf (AST/SGOT) 24 U/L (15-37) Alanine Aminotransferase (ALT/SGPT) 18 U/L (12-78) Alkaline Phosphatase 74 U/L (45-117) Troponin I < 0.015 ng/ml (0-0.045) Total Protein 6.9 gm/dl (6.4-8.2) Albumin 3.6 gm/dl (3.4-5.0) Lipase 125 U/L (73-393) Laboratory results reviewed by me Medications Administered Medications (Trade) Dose Ordered Sig/Lisandro Route Start Time Stop Time Status Last Admin Dose Admin Ondansetron HCl (Zofran Inj) 4 mg NOW STAT IV 08/14/17 16:27 08/14/17 16:30 DC 08/14/17 16:27 4 MG Sodium Chloride 500 ml @ 500 mls/hr Q1H STAT IV 08/14/17 16:27 08/14/17 17:26 DC 08/14/17 16:58 500 MLS/HR Miscellaneous Medication (Gi Cocktail) 24 ml ONE STAT PO 08/14/17 16:27 08/14/17 16:30 DC 08/14/17 16:27 24 ML Famotidine (Pepcid Tab) 20 mg NOW ONCE PO 08/14/17 16:30 08/14/17 16:31 DC 08/14/17 16:57 20 MG Al Hydroxide/Mg Hydroxide (Maalox Susp) 30 ml STK-MED ONCE .ROUTE 08/14/17 16:34 08/14/17 16:35 DC 08/14/17 16:57 30 ML Lidocaine HCl (Viscous Lidocaine 2% Soln) 20 ml STK-MED ONCE .ROUTE 08/14/17 16:34 08/14/17 16:35 DC 08/14/17 16:58 20 ML ECG Indication: abdominal pain Rate (beats per minute): 73 Rhythm: sinus rhythm Findings: 1st degree AV block, other (boarderline wide QRSm no STS or TWI) ED Course 1620: The patient was evaluated in room B3. A complete history and physical exam was performed. 1847: I spoke to Dr. Corea - Internal Medicine, [facility]. He will accept the patient and evaluate him for further care. 1854: Upon reexamination, the patient was stable. I discussed the test results and treatment plan with him. The patient will be evaluated for further management. Medical Decision The patient is a 87 year old male with a past medical history of high platelets and thrombocytosis who presents to the ED with a cc of worsening diarrhea beginning three weeks ago. Positive for weight loss, right abdominal pain and weakness. Negative for bloody diarrhea, recent travel and antibiotic use. Differential diagnosis: Etiologies such as appendicitis, diverticulitis, PUD, biliary pathology, UTI, pancreatitis, obstruction, mesenteric ischemia, aortic pathology, infections, inflammatory bowel disease, renal colic, as well as others were entertained. Patient was seen and evaluated the bedside. Patient does have a prior history of thrombus or ptosis and hypertension. Patient has had EGD and colonoscopy completed back in July. Patient has had a history of diarrhea since possibly May. Over the last 3 weeks as gotten progressively worse. Patient states that he's had worsening weakness and then over the last 2 days he's been on the commode approximately 18 times. Patient does take a baby aspirin. Patient states that he has been trying to take some Metamucil as well as some Pepto-Bismol is not helping symptoms. On patient exam he did have some upper abdominal tenderness to palpation. Patient did have blood work, EKG, troponin, stool studies, and CT of the abdomen pelvis ordered along with symptomatic treatment. Patient did have elevated white blood cell count 19,000. Patient's LFTs and troponin are negative. Patient does not have any ischemic changes on his EKG. Patient did have a CTA was concerning for metastatic disease with a possible liver primary. Given the patient's weakness with diarrheal symptoms and elevated white count I did speak to the patient's PCP. Patient was admitted for further evaluation and treatment. Medication Reconcilliation Current Medication List: was personally reviewed by me Blood Pressure Screening Patient's blood pressure: Normal blood pressure Blood pressure disposition: Did not require urgent referral Consults Time Called: 1839 Consulting Physician: Dr. Corea - Internal Medicine, [facility] Returned Call: [phone] Discussed the patient's case. The patient will be evaluated for further treatment and disposition. Impression Primary Impression: Abdominal pain Additional Impressions: Diarrhea Liver cancer Scribe Attestation The scribe's documentation has been prepared under my direction and personally reviewed by me in its entirety. I confirm that the note above accurately reflects all work, treatment, procedures, and medical decision making performed by me. Departure Information Dispostion Being Evaluated By Hospitalist Referrals Hernesto Jorgensen M.D. (PCP) Forms HOME CARE DOCUMENTATION FORM, IMPORTANT VISIT INFORMATION Patient Instructions [facility] Problem Qualifiers Primary Impression: Abdominal pain Abdominal location: epigastric Qualified Codes: R10.13 - Epigastric pain Additional Impressions: Diarrhea Diarrhea type: unspecified type Qualified Codes: R19.7 - Diarrhea, unspecified Liver cancer Liver malignancy type: unspecified liver malignancy Qualified Codes: C22.9 - Malignant neoplasm of liver, not specified as primary or secondary
[2017-08-14 16:54] LABS: HEMATOCRIT 33.6 % (42-52); MEAN CELL VOLUME 90.8 fL (80-100); MEAN CORPUSCULAR HEMOGLOBIN 30.5 pg (25-34); MEAN CORPUSCULAR HGB CONC 33.6 g/dl (32-36); PLATELET COUNT 586 K/uL (130-400); WHITE BLOOD COUNT 19.69 K/uL (4.8-10.8)
[2017-08-14 17:03] LABS: INR 1.2 (0.9-1.1); PARTIAL THROMBOPLASTIN RATIO 1.3; PROTHROMBIN TIME (PATIENT) 12.7 SECONDS (9.0-12.0)
[2017-08-14 17:13] LABS: ALT/SGPT 18 U/L (12-78); AST/SGOT 24 U/L (15-37); BLOOD UREA NITROGEN 23 mg/dl (7-18); CALCIUM 8.6 mg/dl (8.5-10.1); CARBON DIOXIDE 25 mmol/L (21-32); CHLORIDE 101 mmol/L (98-107); CREATININE 1.15 mg/dl (0.60-1.40); GLUCOSE 107 mg/dl (70-99); POTASSIUM 4.5 mmol/L (3.5-5.1); SODIUM 134 mmol/L (136-145)
[2017-08-14 17:18] LABS: ALKALINE PHOSPHATASE 74 U/L (45-117)
[2017-08-14 17:22] LABS: BASO ABS # 0.33 K/uL (0-0.2); BASOPHIL % 1.7 % (0-2); COMPLETE YES; LYMPH ABS # 0.67 K/uL (1.2-3.4); LYMPHOCYTE % 3.4 %; META ABS # 0.33 K/uL (0-0); METAMYELOCYTE % 1.7 %; MYELOCYTE % 1.7 %; NEUTROPHILS % 84.8 %; OVALOCYTES 1+; TEAR DROP CELLS 1+
[2017-08-14 17:33] LABS: URINE APPEARANCE CLEAR (CLEAR); URINE BILIRUBIN NEG (NEG); URINE COLOR YELLOW; URINE NITRITE NEG (NEG); URINE SPECIFIC GRAVITY 1.023 (1.000-1.030); UROBILINOGEN NEG (NEG); ZZUR CULT IF INDIC CLEAN CATCH NO
[2017-08-14 17:34] LABS: MANUAL MICROSCOPIC REQUIRED? NO; REVIEW REQ? NO
[2017-08-14] MEDS ORDERED: OPTIRAY 320 IV PRN ×2 (18:15→21:00)
--- NOTE | 2017-08-14 18:33 | DIAGNOSTIC IMAGING REPORT ---
ABDOMEN AND PELVIS CT WITH IV CONTRAST CT DOSE: 295.14 mGy.cm HISTORY: Acute generalized abdominal pain. Initial exam ab pain TECHNIQUE: Multiaxial CT images of the abdomen and pelvis were performed following the use of intravenous contrast. 116 mL Optiray 320 IV contrast was administered. A dose lowering technique was utilized adhering to the principles of ALARA. COMPARISON STUDY: Abdominal ultrasound 04/08/2016. FINDINGS: There are multiple bibasilar lobular soft tissue attenuating pulmonary nodules, largest of which is within the posterior basal segment left lower lobe, 1.6 cm in greatest dimension. There is no pneumoperitoneum. The imaged inferior cardiac chambers are mildly enlarged. Coronary arterial calcifications noted. There are innumerable ill-defined low attenuating lesions scattered throughout the hepatic parenchyma, largest of which measure up to 2.5 x 1.9 cm within the right hepatic lobe. The remainder of the lesions measure in the 1-2 cm range. No intrahepatic biliary ductal dilation identified. Splenomegaly redemonstrated measuring up to 17 cm in length, progressed from prior ultrasound 04/08/2016. Ill-defined 5 mm low attenuating focus is noted within the inferior spleen. The gallbladder, pancreas and adrenal glands are unremarkable. Mild atrophy of the left kidney. Low attenuating lesions of the bilateral kidneys are seen, most which are too small to characterize suggesting cyst. The largest lesion is within the inferior pole right kidney, 1.4 cm. There is no renal calculi or hydronephrosis identified. Urinary bladder is unremarkable. Prostamegaly. Mild to moderate atherosclerosis of the abdominal aorta without aneurysm. There is no bulky adenopathy identified. Small sliding-type hiatal hernia. There is no bowel obstruction. Fluid-filled rectosigmoid is noted. Extensive colonic diverticulosis without diverticulitis. Areas of wall thickening noted throughout the sigmoid colon without definite evidence of acute diverticulitis or focal colonic mass. The appendix appears normal. Soft tissues are unremarkable. The bones appear mildly demineralized without suspicious lytic or blastic bony lesions identified. Degenerative changes are seen throughout the spine. IMPRESSION: 1. Innumerable ill-defined low attenuating lesions throughout the liver, largest of which measures up to 2.5 cm are compatible with metastatic disease from unknown primary. 2. Multiple lobulated soft tissue attenuating noncalcified solid pulmonary nodules of the lung bases measuring up to 1.6 cm are also compatible with metastatic disease. 3. Extensive sigmoid colon diverticulosis with areas of wall thickening. No definite evidence of acute diverticulitis or colonic mass. Correlate with colonoscopy. 4. Fluid-filled rectosigmoid suggests diarrheal state. 5. Splenomegaly, increased from comparison ultrasound 04/08/2016. 6. Prostamegaly. Electronically signed by: Nasir Dalal M.D. 08/14/2017 6:31 PM Dictated Date/Time: 08/14/2017 6:19 PM
--- NOTE | 2017-08-14 20:29 | DIAGNOSTIC IMAGING REPORT ---
CHEST ONE VIEW PORTABLE HISTORY: 87 years-old Male weight loss acute weight loss COMPARISON: Chest radiographs 10/20/2015, CT abdomen and pelvis 08/14/2017 TECHNIQUE: Portable upright AP view of the chest FINDINGS: Cardiomediastinal and hilar silhouettes are within normal limits. The previously noted multiple bilateral bibasilar pulmonary nodules are not definitively seen on this study. There is no pneumothorax, pleural effusion or lobar airspace consolidation. Bones of the chest are grossly intact. Post surgical changes of the left humeral head. Calcified hilar lymph nodes are seen suggesting prior granulomatous disease. IMPRESSION: 1. No acute cardiopulmonary process. 2. Previously noted multiple bibasilar pulmonary nodules are not identified on this study. The above report was generated using voice recognition software. It may contain grammatical, syntax or spelling errors. Electronically signed by: Nasir Dalal M.D. 08/14/2017 8:28 PM Dictated Date/Time: 08/14/2017 8:25 PM
--- NOTE | 2017-08-14 20:43 | History and Physical ---
History & Physical Date of Service Aug 14, 2017. History & Physical ADMISSION DATE : 08/14/2017 CHIEF COMPLAINT : 87-year-old male admitted through the emergency room with multiple medical problems including persistent diarrhea, dehydration, suspected metastatic disease. PRESENT ILLNESS : Patient with history of supraventricular tachycardia with unsuccessful ablation attempt at [facility] in the past, vitiligo, chronic diarrhea, thrombocytosis, hyperleukocytosis. Patient has been complaining of persistent diarrhea. Over the last few months he was seen by different directional drill operator. He has had an EGD, colonoscopy. No significant abnormalities have been noted on exam. Pathology report from the biopsies taken at this time of his colonoscopy showed evidence of lymphocytic colitis. Dr. Sawyer recommended Pepto-Bismol. Patient also has GI follow-up sometime in September. Patient has been complaining of persistent diarrhea. It has been gradually getting wars. Since yesterday until today he had about 15 bowel movements. He denied any associated fever. No chills. No blood in his stool that he could notice. No nausea or vomiting. His appetite has definitely declined. He has lost significant amount of weight. Difficult to quantify. He has been feeling extremely weak. Unable to take care of himself at home. He came to the emergency room today. The most striking finding is the abnormal CT scan of the abdomen and pelvis. Patient has multiple hepatic nodules suspicious for metastatic disease. Also on the cuts of the lower lungs to worse also suspicion of multiple nodularities also suspicious for metastatic disease. Patient did stop smoking back in 1979. He does have a history of smoking prior to that between one half and one pack per day since age 20 until 1979. Patient is being admitted for further evaluation. PAST MEDICAL HISTORY : * Supraventricular tachycardia. Failed ablation. That was done many years ago. * TURP in the remote past * Bilateral inguinal hernia repair also in the remote past. * Status post bilateral cataract surgery and post surgery laser treatments Schatzki's ring requiring dilatation * Vitiligo has had dermatology evaluation and has been treated with ultraviolet light. SOCIAL HISTORY : He is a . Had 3 daughters. As noted above he smoked from age 20 until about 1979 when he stopped. He did smoke anywhere between half a pack to 1 pack per day. No alcohol. No excessive coffee tea or soft drinks. He retired in 1994. He worked with the [employer]. He was [employer]. FAMILY HISTORY : His mother at age 93 had multiple strokes and she was in [facility]. His father at age 89. He fell down steps. He hit his head. He had cardiac arrest after that and did not survive. He had 5 sisters. One sister in her 60s she had breast cancer, one sister age 78 of emphysema. She was a smoker. One sister at age 9304 and age. One sister at age 94. One sister is alive and in [facility] and she is 88 years old. Children alive and well. ALLERGIES : SULFA CURRENT MEDICATIONS : As noted on his home medication list REVIEW OF SYSTEMS : He is feeling quite tired and weak. He has been losing weight. Poor appetite. Denied any headache or dizziness. He does feel lightheaded. No change in his vision. He was glasses. He has hearing aids. He has dentures. No neck pain. No chest pain. No shortness of breath. Nonspecific abdominal pain. Intermittent. No nausea no vomiting. No blood in his stool. No urinary problem. No pain in his back or extremities. No ankle edema. PHYSICAL EXAMINATION : General: Well-developed. Chronically in. Recorded weight 70.4 kg, height 174 cm, BMI 23.3 Vital signs: Blood pressure 126/72, pulse 82, respirations 16, oxygen saturation 98% on room air. His oral temperature was 37.6 when I checked it in the emergency room. He felt warm to touch. We checked his rectal temperature and it was 37.9. Skin is warm and dry. Multiple areas of vitiligo. Multiple ecchymotic areas. HEENT he wears glasses. Post cataract surgery. Hearing aids. Dentures. Bilateral arcus senilis. Neck is supple. Nontender. No JVD. Normal cardiac pulses. Heart regular heart sounds with 2/6 systolic murmur Lungs are clear Axilla no adenopathy Breasts no evidence of any mass Abdomen is soft nontender. No organomegaly no masses. Good bowel sounds. Back no spinal or CVA tenderness Groins no adenopathy no hernia Extremities no edema clubbing or cyanosis. No joint or muscle tenderness. Flat feet. Good pulses. Neurological examination: He is alert and oriented without evidence of any lateralized deficit LABORATORY TESTS : WBC count 19,690, hemoglobin 11.3, hematocrit 33.6, platelet count 586,000. Differential showed evidence of left shift. Prothrombin time 12.7, INR 1.2, PTT 33.5. Sodium 134, potassium 4.5, chloride 101, CO2 25, BUN/creatinine 23, creatinine 1.15, glucose 107, calcium 8.6, total bilirubin 0.6, AST 24, AST 18, alkaline phosphatase 75, total protein 6.9, albumin 3.6, lipase 125, troponin I less than 0.015. Urinalysis showed trace ketones without any other abnormalities. CT scan of the abdomen and pelvis showed multiple lesions throughout the liver the largest measured 2.5 cm in diameter. Compatible with metastatic disease. Multiple solid pulmonary nodules of the lung bases measuring up to 1.6 cm also compatible with metastatic disease. Extensive sigmoid diverticulosis with areas of fall thickening. No definite evidence of acute diverticulitis or any masses. Splenomegaly is also noted. Increased compared to prior study from 04/2016. Enlarged prostate also noted. ASSESSMENT : * Persistent diarrhea * Dehydration * Generalized weakness * Multiple hepatic nodules suspicious for metastatic disease * Multiple pulmonary nodules suspected metastatic disease * Remote history of smoking. He stopped back in 1979 * History of supraventricular tachycardia with failed ablation * Thrombocytosis * Hyperleukocytosis * Vitiligo PLAN : Patient was admitted to medical bed. Resuscitation level I. All his laboratory tests were ordered. CT scan of the chest with contrast was ordered. CEA was also ordered. His imaging studies are consistent with metastatic disease. Keeping in mind patient just had an EGD and a colonoscopy done within the last couple of months. No abnormalities were noted indicated any malignancy. We will complete his workup. Requested to thoracic surgery consultation from Dr. Josh Munguia. Also requested oncology consultation from Dr. Bowen. Dr. Bowen has seen the patient in the past for evaluation of his thrombocytosis and hyperleukocytosis. He did have a bone marrow aspiration and biopsy done. I spoke with the patient and his family. His daughter and her were with him in the emergency room. I explained to them the findings so far and the planned evaluation
[2017-08-14] MEDS: SODIUM CHLORIDE 0.9% 1000ML 1,000 ML IV SCH (21:09)
[2017-08-14 21:22] VITALS: BP 134/80; PULSE 72; TEMP 37; O2SAT 97; Ht 175.3 cm; Wt 70.2 kg
--- NOTE | 2017-08-14 21:32 | DIAGNOSTIC IMAGING REPORT ---
CHEST CT WITH CONTRAST CT DOSE: 257.50 mGy.cm HISTORY: Acute weight loss with abdominal pain. Hepatic and pulmonary metastasis seen on comparison CT of the abdomen. multiple nodules, ? metatatic disease TECHNIQUE: Multiaxial CT images of the chest were performed following the intravenous administration of contrast. 116 mL Optiray 320 IV contrast was administered. A dose lowering technique was utilized adhering to the principles of ALARA. COMPARISON: Chest radiograph and CT abdomen and pelvis of same day. FINDINGS: Thyroid is homogeneous without focal nodule identified. Mildly prominent right peritracheal lymph node measures 12 x 9 mm, image 110 series 4 with a normal fatty hilum, likely physiologic. There is a 1.3 x 1.6 cm nodular density interposed between the esophagus and descending thoracic aorta, image 130 series 4 which is indeterminate. Suspicious for a small esophageal diverticulum. Mildly prominent AP window lymph nodes are seen measuring up to 9 mm in short axis. Mildly prominent right hilar lymph node on image 153 series 4 measures up to 9 mm in short axis. Heart is normal in size without pericardial effusion. Thoracic aorta is normal in both course and caliber without dissection or aneurysm. Mild mixed plaquing of the aorta. The opacified pulmonary arterial tree is unremarkable without focal filling defect identified. There is an aggressive appearing spiculated irregular soft tissue attenuating mass of the right hilum which invades the bronchus intermedius and surrounds the right lower lobe lobar and segmental bronchi measuring up to 5.9 x 2.2 x 3.6 cm in AP, transverse and craniocaudal dimensions respectively. This lesion narrows and displaces adjacent subsegmental pulmonary arterial branches as seen on image 147 series 4. There are multiple satellite nodules of the right lower lobe involving both the superior and basal segments. Largest on the right is within the basal right lower lobe, 1.6 x 1.2 cm on image 177 series 4. Additional scattered soft tissue attenuating pulmonary nodules are present within the bilateral lower lobes, lingula and upper lobes. Largest of which measures 1.8 cm within the left lower lobe. There is a calcified granuloma of the right middle lobe. No pneumothorax or malignant effusion identified. Innumerable ill-defined low attenuating lesions throughout the liver compatible with hepatic metastasis. Splenomegaly. Soft tissues are unremarkable. There are degenerative changes about the spine. Ill-defined low attenuating 9 mm focus involves the right aspect of the C7 vertebral body. IMPRESSION: 1. Spiculated irregular right hilar soft tissue mass invades the bronchus intermedius and tracks along the right lower lobe bronchi measuring up to 5.9 x 2.2 x 3.6 cm, suggesting primary bronchogenic carcinoma such as small cell carcinoma. Further evaluation with bronchoscopy and tissue sampling recommended. 2. Multiple satellite metastatic nodules of the of the bilateral upper and lower lobes. 3. Innumerable ill-defined low attenuating lesions of the liver redemonstrated compatible with metastasis. 4. Mildly prominent mediastinal adenopathy as above, suspicious for possible lymphatic metastasis. Circumscribed 1.6 cm structure interposed between the esophagus and descending thoracic aorta suggests esophageal diverticulum or mildly enlarged lymph node. Attention at follow-up recommended. 5. Ill-defined area of decreased attenuation involving the right lateral aspect of the C7 vertebral body is equivocal for lytic metastasis. Electronically signed by: Nasir Dalal M.D. 08/14/2017 9:31 PM Dictated Date/Time: 08/14/2017 9:08 PM
[2017-08-14 22:00] VITALS: BP 133/78; PULSE 70; O2SAT 98
[2017-08-14] MEDS: METOPROLOL TARTRATE 25 MG TAB PO SCH (22:02)
[2017-08-14] MEDS: FLECAINIDE ACETATE 100 MG TAB PO SCH (22:03)
[2017-08-14] MEDS: HEPARIN SOD 5000 UNIT/0.5 ML CARP SQ SCH (22:08)
--- NOTE | 2017-08-14 23:15 | History and Physical ---
History & Physical Date of Service Aug 14, 2017. History & Physical ADDENDUM to the dictated history and physical : Since admission the following additional findings are noted: * Stool tested positive for Clostridium difficile * CT scan of the chest with contrast showed a spiculated irregular right hilar soft tissue mass invading the bronchus intermedius and tracks along the right lower lobe bronchi measuring 5.9 x 2.2 x 3.6 cm suggesting primary bronchogenic carcinoma such as small cell carcinoma. Multiple satellite metastatic nodules noted bilaterally. A suspicious area involving the right lateral aspect of T7 vertebral body was also noted. Additional plan: * started on vancomycin 125 mg 4 times a day * Proceeded with the evaluation. 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
[2017-08-15] VITALS: O2SAT 97
[2017-08-15] MEDS: ACETAMINOPHEN 500 MG TAB PO PRN ×4 (02:21→19:43)
[2017-08-15 04:00] VITALS: BP 107/67; PULSE 57; TEMP 37; O2SAT 94
[2017-08-15] MEDS: SODIUM CHLORIDE 0.9% 1000ML 1,000 ML IV SCH ×2 (05:44→18:55)
[2017-08-15 06:14] LABS: BASO % 0.3 %; BASO ABS # 0.04 K/uL (0-0.2); COMPLETE YES; EOS % 0.8 %; HEMATOCRIT 28.8 % (42-52); IG% 2.2 %; LYMPH ABS # 0.78 K/uL (1.2-3.4); MEAN CORPUSCULAR HEMOGLOBIN 30.4 pg (25-34); MEAN PLATELET VOLUME 11.1 fL (7.4-10.4); MONO % 10.2 %; NEUT % 80.5 %; PLATELET COUNT 486 K/uL (130-400); RED BLOOD COUNT 3.13 M/uL (4.7-6.1)
[2017-08-15 06:55] LABS: BUN/CREATININE RATIO 18.9 (10-20); CALCIUM 8.2 mg/dl (8.5-10.1); CREATININE 1.12 mg/dl (0.60-1.40); POTASSIUM 4.2 mmol/L (3.5-5.1)
[2017-08-15 06:57] LABS: ALB/GLOB RATIO 1.1 (0.9-2)
[2017-08-15 07:20] VITALS: BP 122/62; PULSE 58; TEMP 36.9; O2SAT 96
[2017-08-15] MEDS: VANCOMYCIN HCL 125 MG/2.5ML SOLN PO SCH ×4 (08:00→19:36)
[2017-08-15] MEDS: RASPBERRY SYRUP 5 ML UDP PO SCH ×4 (08:00→19:36)
[2017-08-15] MEDS: FLECAINIDE ACETATE 100 MG TAB PO SCH ×2 (08:01→19:41)
[2017-08-15] MEDS: METOPROLOL TARTRATE 25 MG TAB PO SCH ×2 (08:01→19:40)
[2017-08-15] MEDS: FINASTERIDE 5 MG TAB PO SCH (08:02)
[2017-08-15] MEDS: HEPARIN SOD 5000 UNIT/0.5 ML CARP SQ SCH ×2 (08:10→20:53)
--- NOTE | 2017-08-15 11:38 | DIAGNOSTIC IMAGING REPORT ---
Brain MRI WITH AND WITHOUT CONTRAST HISTORY: Lung cancer. METASTATIC DISEASE TECHNIQUE: Multiplanar multisequence MRI of the brain was performed both before and after the intravenous administration of contrast. COMPARISON STUDY: None. FINDINGS: There is no mass, hematoma, midline shift, or acute infarct. The paranasal sinuses are clear. The mastoid air cells are clear. The ventricles and sulci demonstrate mild age-related involutional changes. Scattered foci of T2 hyperintensity seen within the periventricular and subcortical white matter are nonspecific but suggestive of mild microvascular ischemic changes. The major vascular flow voids at the skull base are well-maintained. 5 mm faint focus of enhancement within the left temporal lobe seen on axial image 14 and coronal image 12. There is no associated edema or restricted diffusion at this location. IMPRESSION: A 5 mm faint focus of enhancement within left temporal lobe without associated edema or restricted diffusion. Therefore, this is indeterminate and could represent artifact or a small capillary telangectasia. However, given the history of lung cancer a tiny metastatic focus is not entirely excluded. Consider one month brain MRI follow-up for confirmation. Electronically signed by: Roger Torres M.D. 08/15/2017 11:37 AM Dictated Date/Time: 08/15/2017 11:26 AM
--- NOTE | 2017-08-15 11:39 | SURGICAL CONSULTATION ---
DATE OF CONSULTATION: 08/15/2017 REASON FOR CONSULTATION: Apparent metastatic lung cancer. HISTORY OF PRESENT ILLNESS: This is a delightful 87-year-old male who does have a history of light cigarette smoking and he quit smoking in 1979. He smoked for about 25 years, but states he smoked between a third and half a pack a day. The patient was in his usual state of health until the last few months when started losing weight. He has lost between 15 and 20 pounds. He also became much weaker. He developed diarrhea a few months ago and presented with essentially dehydration. He states he feels much better today. A CT scan was obtained of his abdomen and he was found to have not only pulmonary masses, which were confirmed on a later CT scan, but also liver abnormalities that are probably metastases. Dr. Corea has kindly asked me to see this patient for a diagnostic workup. PAST MEDICAL HISTORY: 1. Supraventricular tachycardia in the past. 2. Benign prostatic hypertrophy. 3. Bilateral inguinal hernias. 4. Vitiligo. 5. Cataracts. 6. History of cigarette smoking. 7. Probable gastroesophageal reflux disease with Schatzki's rings, requiring dilatation. PAST SURGICAL HISTORY: 1. Bilateral inguinal herniorrhaphies. 2. Transurethral resection of his prostate. 3. Attempted ablation for supraventricular tachycardia. 4. Bilateral cataract surgery. 5. Ultraviolet light treatment from dermatology. 6. Upper endoscopy with esophageal dilatation. MEDICATIONS: 1. Aspirin. 2. Proscar. 3. Flecainide. 4. Lopressor. 5. Triamcinolone acetonide applied to skin b.i.d. ALLERGIES: SULFA. SOCIAL HISTORY: The patient is originally from [place]. 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 His in 2011 after 57 years of marriage. He has 3 children that are fairly local, but he has grandchildren that had moved. He did smoke cigarettes between a third and half pack a day for about 25 years, but quit in 1979. He lives alone. FAMILY MEDICAL HISTORY: The patient's mother lived to be 93 and his father lived to be 89. He has sisters that made into their 90s. He had 1 sister from breast cancer at age 60. He has 3 children and 5 grandchildren that are healthy. REVIEW OF SYSTEMS: The patient has been much weaker. He stated he has been losing weight. He has had some dysphagia, worked up with an upper endoscopy and was dilated. He does have a hiatal hernia. He acutely developed pain in his left leg and his leg is very weak. This has just happened within the last 24 hours. He wears glasses. He does wear hearing aids. He has had no visual or auditory symptoms that are new. He really denies productive cough or shortness of breath. He has had some abdominal pain associated with his diarrhea. He denies any urinary problems, although he has a history of BPH and is on Proscar. He has weakness in his right leg, making it difficult for him to walk. He denies peripheral edema, although he does apparently have some venous insufficiency. He has had no neurologic events such as amaurosis fugax or transient ischemic attack. He has had no wound breakdown. PHYSICAL EXAMINATION: GENERAL: This is a very nice man who appears younger than stated age of 87. He stands 5 feet 9 inches tall and weighs 151 pounds. HEENT: He wears glasses. He has bilateral arcus senilis. His pupils are equally round and reactive. His sclerae are anicteric. He is edentulous, but I detect no oral mucosal lesions and his oral mucosa appears moist. His tongue is midline. NECK: Supple. I detect no supraclavicular or cervical lymphadenopathy. He has no carotid bruits or thyroid nodules. He has decreased breath sounds, but moving air fairly well bilaterally. HEART: He has a regular rate and rhythm in the 60s without a significant rub. His abdomen is soft and he does have bowel sounds. EXTREMITIES: He has no evidence of abdominal aortic aneurysm. He has no ascites. He has good femoral pulses. I can palpate pedal pulses. He has no joint effusions or peripheral edema. He does have evidence of venous engorgement of his legs. NEUROLOGICAL: He is awake, alert and oriented, but his right leg is a bit weak. He has about 4/5 strength. Otherwise, he has no focal deficits and cranial nerves II-XII are intact. ASSESSMENT AND PLAN: The right lower lobe mass and apparent metastases to left lower lobe. He does not have much in the way of mediastinal adenopathy, but does have apparent liver metastases. These were not present on an ultrasound in 2016. I have reviewed this with Dr. Roger Torres and he feels that these liver lesions are amenable to a needle biopsy. We can do an ultrasound or CT guidance and will get that set up for today. The patient was agreeable to this plan.
[2017-08-15] MEDS: PANTOprazole INJ 40 MG in SYRINGE 0 ML IV SCH (12:03)
--- NOTE | 2017-08-15 13:49 | DIAGNOSTIC IMAGING REPORT ---
ULTRASOUND GUIDED FNA OF A LIVER MASS CLINICAL HISTORY: Lung mass.Assess for metastatic disease. Liver lesions. Procedure: Written informed consent was obtained. Preliminary imaging of the left hepatic lobe was performed to determine a safe needle entry site. The epigastric region was prepped and draped in the usual sterile fashion. 1% lidocaine was used for local anesthesia. Under ultrasound guidance a single pass using a 22-gauge Kendra needle was made through a left hepatic lobe lesion. Specimen was given to the on-site pathologist who determined adequate tissue for diagnosis. No immediate complications. IMPRESSION: Successful ultrasound-guided fine-needle aspiration of a left hepatic lobe lesion. Electronically signed by: Roger Torres M.D. 08/15/2017 1:48 PM Dictated Date/Time: 08/15/2017 1:45 PM
[2017-08-15 14:02] VITALS: BP 138/79; PULSE 59; TEMP 36.8; O2SAT 97
[2017-08-15 18:52] VITALS: BP 131/73; PULSE 60; TEMP 36.8; O2SAT 95
[2017-08-15 19:35] VITALS: BP 129/77; PULSE 61
[2017-08-15] MEDS: BOOST VANILLA PO SCH ×2 (19:36)
--- NOTE | 2017-08-15 20:08 | Medical Consult ---
Consultation Date of Consultation: Aug 15, 2017. Attending Physician: Hernesto Jorgensen M.D. History of Present Illness Hematology/Oncology consult: Evaluation management of suspected metastatic lung cancer. Date of consultation: 08/15/[address] Mireya Dennis HPI: 87-year-old male, who came to the [facility] ER for increasing diarrhea, dehydration, gradual weight loss over the last several months. I know him for the myeloproliferative diagnosis, presently he is under observation for that. I saw him at bedside, he says that he is having ongoing diarrhea for the last several months, seen by GI, had endoscopic evaluation, no specific findings noted, biopsy from the colonoscopy showed lymphocytic colitis. Recently he had further increased in the loose bowel movement, no fever, no blood in the stool, no nausea or vomiting, gradual weight loss noted over the last few months. He discontinue smoking habit somewhere in . Hematological diagnosis: -A case of myeloproliferative disorder, with bone marrow fibrosis, diagnosed in April,. -Bone marrow examination done on 04/19/2017-->~~myeloproliferative neoplasm with myelofibrosis, grade 2, no excess blasts noted. 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 ~ -Ultrasound of the of the abdomen done in April, showed no gallstones, possible fatty changes noted in the liver, moderate splenomegaly measuring 17.2 cm. ~It was around 14.6 cm earlier in 2010. Presently he is under observation for myeloproliferative disorder. Has mildly elevated white blood cell count, thrombocytosis noted. Splenomegaly is present. REVIEW OF SYSTEMS: GENERAL: Weight loss present, feeling somewhat weak and tired, no fever or chills. SKIN: No skin rash, no bruising. HEAD: No new headache, no dizziness. EYES: No recent change in the vision, no diplopia, EARS: No earache no tinnitus, NOSE: No epistaxis, No nasal discharge or stuffiness, MOUTH: No sores, no dysphagia, no hoarseness of voice, NECK: No lumps, No swelling in thyroid area. No stiffness. PULMONARY: mild cough, No shortness of breath, no hemoptysis, no chest pain, No wheezing. CARDIOVASCULAR: No anginal chest pain, no PND, no orthopnea. No palpitation, no leg edema. No syncope. GASTROINTESTINAL: No abdominal pain, no nausea or vomiting. He had diarrhea earlier which has improved, No constipation. No blood in stool or black tarry stools. No abdominal distention. UROLOGIC: No burning urination. No hematuria. MUSCULOSKELETAL: No joint pain, No joint swelling, no muscle weakness. HEMATOLOGIC: A case of myeloproliferative disorder with bone marrow fibrosis NEUROLOGIC: No seizures, no focal weakness, no speech difficulty, No memory disturbances. No tingling or numbness of the extremities. PSYCHIATRIC: No depression. No anxiety. No psychosis. SLEEP: No sleep disorder. Past medical and surgical history: - supraventricular tachyarrhythmia. S/P ablation procedure done in the past at [facility]. -myeloproliferative disorder as described above. -chronic diarrhea present. Social history: History of smoking present in the past, discontinued several years back. Denies any ETOH abuse. Family history:\not significant Medications: Please review her chest for detailed list of medications. Started him on oral vancomycin for new diagnosis of C difficile colitis. Allergies: Sulfa On exam: - Alert and oriented x3, thin built man, not in any distress. - HEENT: no icterus, no pallor, Throat: Normal. - Neck: No palpable cervical lymphadenopathy. - Chest: clear to auscultation. - Abdomen: soft, nontender, no hepatomegaly, no splenomegaly. - No focal neuro deficit. - Extremities: no finger clubbing, no leg edema. Lab: Blood workup done on 08/14/2017: -WBC 74364, H&H of 11.3/33.6, you 586,000. Immature WBCs noted. -BUN/Creat: 20/1.1, normal liver function test. -LDH--> 604, prealbumin 12.8, CEA level--> 94.3 -stool for C difficile--> positive. Imaging: -CT scan of the abdomen pelvis done on 08/14/2017 showed several ill-defined liver lesions, the largest one measuring 2.5 x 1.9 cm involving right lobe of the liver, all other lesions measuring about 1 to 2 cm in size, clinically measuring up to 17 cm noted. 5 mm focus noted in the spleen. Atrophy of the left kidney noted. Bilateral noncalcified lung nodules noted in the lung bases measuring up to 1.6 cm. Enlarged prostate noted. CT scan of the chest done on 08/14/2007--> spiculated right hilar soft tissue mass along with the right lower lobe bronchus measuring 5.9 x 2.2 x 3.6 cm, multiple bilateral lung nodules noted, prominent mediastinal lymph nodes noted. Possible C7 lesion (right lateral aspect) noted. ASSESSMENT AND PLAN: 87-year-old male, who has myeloproliferative disorder, MPL mutation positive splenomegaly, bone marrow fibrosis noted, presently he is under observation, has mildly elevated white blood cell count, immature WBCs noted also has mild thrombocytosis related to that, now admitted for chronic diarrhea, weight loss, found to have right hilar lung mass, multiple lung nodules, multiple liver lesions suspicious for metastatic disease, underwent ultrasound-guided biopsy of the liver lesion today, result pending, calcium level normal, normal liver function test. CEA level is on the higher side. There was no evidence of colon cancer noted in the last colonoscopy examination done on 07/20/2017 I reviewed with the patient as well as family members who were at bedside regarding diagnostic workup done in his case, suspecting primary lung cancer, will wait for the final histopathology and then decide about further management , will also consider for PET-CT scan for initial staging workup as an outpatient. Thanks for the consultation. Dr. David Bowen Hem/Onc (This note was completed using the dictation program Fluency Direct. As such, there may be misspellings, word substitutions, or other variations that should not change the essence of the clinical content of this encounter note. If there is need for further clarification, please direct questions to the provider listed above.) Past Medical/Surgical History Medical Problems: (1) Abdominal pain Status: Acute (2) Diarrhea Status: Acute (3) Vasovagal near syncope Status: Acute Family History Cancer Hypertension No significant family history Stroke Social History Smoking Status: Former Smoker Marital Status: Occupation Status: retired Allergies Coded Allergies: Sulfa Antibiotics (Verified Adverse Reaction, Unknown, JOINT PAIN, ) Current Inpatient Medications Current Inpatient Medications Medications (Trade) Dose Ordered Sig/Lisandro Route Start Time Stop Time Status Last Admin Dose Admin Ioversol (Optiray 320) 116 ml UD PRN IV 08/14/17 18:15 08/18/17 18:14 Heparin Sodium (Porcine) (Heparin Sq 5000 Unit/0.5ml) 5,000 unit Q12H SQ 08/14/17 21:00 09/13/17 20:59 08/15/17 08:10 5,000 UNIT Sodium Chloride 1,000 ml @ 100 mls/hr Q10H IV 08/14/17 20:00 09/13/17 19:59 08/15/17 18:55 100 MLS/HR Pantoprazole Sodium 40 mg/ Syringe 10 ml @ 5 mls/min DAILY@11 IV 08/15/17 11:00 09/14/17 10:59 08/15/17 12:03 5 MLS/MIN Acetaminophen (Tylenol Tab) 500 mg Q4H PRN PO 08/14/17 20:00 09/13/17 19:59 08/15/17 19:43 500 MG Finasteride (Proscar Tab) 5 mg QAM PO 08/15/17 08:00 09/14/17 08:59 08/15/17 08:02 5 MG Flecainide Acetate (Tambocor Tab) 100 mg BID PO 08/14/17 21:00 09/13/17 20:59 08/15/17 19:41 100 MG Metoprolol Tartrate (Lopressor Tab) 25 mg BID PO 08/14/17 21:00 09/13/17 20:59 08/15/17 19:40 25 MG Diphenoxylate HCl/ Atropine (Lomotil Tab) 1 tab Q4H PRN PO 08/14/17 20:00 09/13/17 19:59 Ioversol (Optiray 320) 116 ml UD PRN IV 08/14/17 21:00 08/18/17 20:59 Vancomycin HCl (Vancomycin Oral Soln) 125 mg QID PO 08/15/17 08:00 08/25/17 07:59 08/15/17 19:36 125 MG Raspberry (Raspberry Syrup 5ml Cup) 5 ml QID PO 08/15/17 08:00 08/29/17 07:59 08/15/17 19:36 5 ML Enteral Nutritional Formula (Boost) 1 can BID PO 08/15/17 20:00 09/14/17 19:59 08/15/17 19:36 1 CAN Physical Exam Date Time Temp Pulse Resp B/P (MAP) Pulse Ox O2 Delivery O2 Flow Rate FiO2 08/15/17 19:35 61 129/77 (94) 08/15/17 18:52 36.8 60 131/73 (92) 95 Room Air 08/15/17 16:00 Room Air 08/15/17 14:02 36.8 59 20 138/79 (98) 97 Room Air 08/15/17 08:25 Room Air 08/15/17 07:20 36.9 58 20 122/62 (82) 96 Room Air 08/15/17 04:00 37.0 57 18 107/67 (80) 94 Room Air 08/15/17 00:00 97 Room Air 08/14/17 22:00 70 133/78 (96) 98 Room Air 08/14/17 21:22 37.0 72 18 134/80 97 Room Air Laboratory Results Last 24 Hours Test 08/14/17 21:25 08/15/17 05:53 08/15/17 07:10 White Blood Count 13.10 K/uL Red Blood Count 3.13 M/uL Hemoglobin 9.5 g/dL Hematocrit 28.8 % Mean Corpuscular Volume 92.0 fL Mean Corpuscular Hemoglobin 30.4 pg Mean Corpuscular Hemoglobin Concent 33.0 g/dl Platelet Count 486 K/uL Mean Platelet Volume 11.1 fL Neutrophils (%) (Auto) 80.5 % Lymphocytes (%) (Auto) 6.0 % Monocytes (%) (Auto) 10.2 % Eosinophils (%) (Auto) 0.8 % Basophils (%) (Auto) 0.3 % Neutrophils # (Auto) 10.55 K/uL Lymphocytes # (Auto) 0.78 K/uL Monocytes # (Auto) 1.33 K/uL Eosinophils # (Auto) 0.11 K/uL Basophils # (Auto) 0.04 K/uL RDW Standard Deviation 51.6 fL RDW Coefficient of Variation 15.4 % Immature Granulocyte % (Auto) 2.2 % Immature Granulocyte # (Auto) 0.29 K/uL Sodium Level 139 mmol/L Potassium Level 4.2 mmol/L Chloride Level 103 mmol/L Carbon Dioxide Level 26 mmol/L Anion Gap 10.0 mmol/L Blood Urea Nitrogen 21 mg/dl Creatinine 1.12 mg/dl Est Creatinine Clear Calc Drug Dose 47.4 ml/min Estimated GFR () 69.1 Estimated GFR (Non- 59.6 BUN/Creatinine Ratio 18.9 Random Glucose 90 mg/dl Calcium Level 8.2 mg/dl Total Bilirubin 0.5 mg/dl Aspartate Amino Transf (AST/SGOT) 21 U/L Alanine Aminotransferase (ALT/SGPT) 14 U/L Alkaline Phosphatase 61 U/L Lactate Dehydrogenase 604 U/L Total Protein 5.8 gm/dl Albumin 3.0 gm/dl Globulin 2.8 gm/dl Albumin/Globulin Ratio 1.1 Prealbumin 12.8 mg/dl Carcinoembryonic Antigen 94.3 ng/ml
--- NOTE | 2017-08-15 20:28 | Progress Note ---
Progress Note Date of Service Aug 15, 2017. Progress Note 87-year-old male admitted yesterday through the emergency room with multiple problems as documented on his admission workup and on the tests that he has had since then. These problems include * Persistent diarrhea. His stool was positive for Clostridium difficile. He was started last night on vancomycin orally. * Evidence of metastatic disease with liver metastases. CT scan of the chest showed evidence of a pulmonary mass most likely a primary lung cancer. * MRI of the brain without and with contrast showed a 5 mm faint focus of enhancement within the left temporal lobe. No associated edema or any other abnormalities. Recommendation is for repeat in about one month. * Today he had an ultrasound-guided liver biopsy. The final report is pending. I did check the preliminary report this evening and the findings are indicative of adenocarcinoma thought to be a lung primary. * Known myeloproliferative disorder and bone marrow fibrosis * Weight loss * History of supraventricular tachycardia Patient is resting comfortably. He denied any headache no dizziness no lightheadedness. He denies any chest pain. No shortness of breath. No cough. No hemoptysis. No abdominal pain. No nausea or vomiting. His bowel movements have significantly slowed down since yesterday. This morning the patient was seen in thoracic surgery consultation by Dr. Josh Munguia. He recommended proceeding with a liver biopsy and that what was done today. 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 This evening patient was seen in oncology consultation by Dr. Bowen. His final recommendations are pending after all his workup is completed. EXAMINATION: GENERAL : Well developed. Well nourished. No acute distress.feeling generally weak. VITAL SIGNS : Blood Pressure : 122/62, pulse 58, respiration 20, temperature 36.9, oxygen saturation 96% on room air. SKIN : Warm and dry. multiple areas of vitiligo HEENT :He was back to speed has hearing aids. Has dentures. NECK : Supple. No adenopathy. No thyromegaly. No JVD. Normal carotid pulses. HEART: Regular heart tones with 2/6 systolic murmur. No rub no gallop. LUNGS: Clear. Normal breath sounds. ABDOMEN: Soft nontender. No organomegaly or masses. Good bowel sounds. BACK: No spine or CVA tenderness. EXTREMITIES : No edema clubbing or cyanosis. No joint or muscle tenderness. Good peripheral pulses. LABORATORY TESTS: WBC count 13,100, hemoglobin 9.5, hematocrit 28.8, platelet count 486,000. Sodium 139, potassium 4.2, chloride 103, CO2 26, BUN 21, creatinine 1.12, glucose 90, calcium 8.2, total bilirubin 0.5, AST 21, ALT 14, alkaline phosphatase 61, total protein 5.8, albumin 3.0, globulin 2.8, LDH 604, pre- albumin 12.8, CEA 94.3. ASSESSMENT: * metastatic adenocarcinoma. Suspected of being a lung primary. * Myeloproliferative disorder * Generalized weakness and weight loss * History of supraventricular tachycardia PLAN: * we are in the process of finalizing his workup * Dr. Bowen who will recommend treatment * Continuing the same medications * Will discuss with Dr. Bowen if we should go ahead and have an [id number] placed before discharge.
[2017-08-16] VITALS (10 sets, daily range): BP systolic 109–138; BP diastolic 63–81; PULSE 52–73; TEMP 36.4–37.5; O2SAT 94–97
[2017-08-16] MEDS: SODIUM CHLORIDE 0.9% 1000ML 1,000 ML IV SCH ×3 (02:00→21:15)
[2017-08-16] MEDS: DIPHENOXYLATE/ATROPINE 2.5/0.025MG TAB PO PRN ×2 (06:25→17:31)
[2017-08-16] MEDS: ACETAMINOPHEN 500 MG TAB PO PRN ×2 (06:26→21:13)
[2017-08-16 07:05] LABS: BASO % 0.5 %; BASO ABS # 0.09 K/uL (0-0.2); COMPLETE YES; EOS % 1.7 %; HEMATOCRIT 34.6 % (42-52); IG% 4.6 %; LYMPH % 5.6 %; LYMPH ABS # 0.95 K/uL (1.2-3.4); MEAN CELL VOLUME 93.8 fL (80-100); MEAN CORPUSCULAR HEMOGLOBIN 30.1 pg (25-34); MEAN CORPUSCULAR HGB CONC 32.1 g/dl (32-36); MEAN PLATELET VOLUME 10.9 fL (7.4-10.4); NEUT % 80.6 %; PLATELET COUNT 648 K/uL (130-400); RED BLOOD COUNT 3.69 M/uL (4.7-6.1); WHITE BLOOD COUNT 16.93 K/uL (4.8-10.8)
[2017-08-16 07:44] LABS: BUN/CREATININE RATIO 16.4 (10-20); CALCIUM 8.4 mg/dl (8.5-10.1); CREATININE 1.12 mg/dl (0.60-1.40)
[2017-08-16] MEDS: FLECAINIDE ACETATE 100 MG TAB PO SCH ×2 (08:24→21:14)
[2017-08-16] MEDS: FINASTERIDE 5 MG TAB PO SCH (08:24)
[2017-08-16] MEDS: VANCOMYCIN HCL 125 MG/2.5ML SOLN PO SCH ×4 (08:24→21:12)
[2017-08-16] MEDS: METOPROLOL TARTRATE 25 MG TAB PO SCH ×2 (08:24→21:13)
[2017-08-16] MEDS: RASPBERRY SYRUP 5 ML UDP PO SCH ×4 (08:24→21:12)
[2017-08-16] MEDS: HEPARIN SOD 5000 UNIT/0.5 ML CARP SQ SCH ×2 (08:31→21:21)
[2017-08-16] MEDS: BOOST VANILLA PO SCH ×4 (08:40→21:11)
[2017-08-16] MEDS: PANTOprazole INJ 40 MG in SYRINGE 0 ML IV SCH (10:59)
--- NOTE | 2017-08-16 15:37 | SURGERY PROGRESS NOTE ---
DATE: 08/16/2017 The patient continues to have diarrhea. He tolerated the ultrasound-guided biopsy of his liver mass very nicely yesterday. I discussed this case with Dr. Hernesto Corea as well as Dr. Memo Wright. This is malignant. It is unclear as to the exact origin or cell type. It may be an adenocarcinoma. It may well be a carcinoid. Dr. Wright is going to be doing special stains and hopefully, we will have an answer. [facility]
--- NOTE | 2017-08-16 22:46 | Progress Note ---
Progress Note Date of Service Aug 16, 2017. Progress Note 87-year-old male admitted with multiple problems including severe diarrhea, generalized weakness, weight loss. He also has myeloproliferative disease which has not required any treatment. Since admission the following problems have been identified * Clostridium difficile colitis. He was started on vancomycin * Evidence of metastatic disease. Most likely primary lung adenocarcinoma with liver metastases. Patient had a liver biopsy. The final report is pending. Preliminary findings are consistent with adenocarcinoma. Patient was seen in thoracic surgery consultation by Dr. Josh Munguia. He recommended that we proceed with a liver biopsy which was done. He did not see that a bronchoscopy was needed. Especially now that we do have a diagnosis. He was also seen in oncology consultation by Dr. Bowen. We are waiting for the final pathology report. Dr. Bowen would establish a plan of treatment. At this point he is resting comfortably. He denied any headache or dizziness or lightheadedness. Denies any chest pain. No shortness of breath. No cough no hemoptysis. No abdominal pain. No nausea no vomiting. He started having multiple bowel movements with diarrhea. No urinary problems. No back pain. He is complaining of pain in his right headache suspicious for radiculopathy. EXAMINATION: General: He is well-developed. No distress. Vital signs: Blood pressure 138/81, pulse 61, respirations 16, temperature 36.4 , oxygen saturation 96% on room air. Skin: Warm and dry. Multiple areas of vitiligo. HEENT: No mucosal abnormalities Neck: Supple, no adenopathy or thyromegaly. No JVD. heart: Regular heart sounds. No murmur rub or gallop Lungs: Are clear. Abdomen: Soft nontender. No organomegaly or masses. Back: No spinal tenderness Extremities: No edema clubbing or cyanosis. LABORATORY TESTS: WBC count 16,930, hemoglobin 11.1, hematocrit 34.6, platelet count 648,000. Sodium 138, potassium 4.0, chloride 105, CO2 25, BUN 18, creatinine 1.12, glucose 102, calcium 8.2, total bilirubin 0.4, AST 21, ALT 20, alkaline phosphatase 74, total protein 6.8, albumin 3.4. ASSESSMENT: * metastatic carcinoma thought to be adenocarcinoma with lung primary with liver metastases. Stage IV. * Clostridium difficile colitis * Myeloproliferative disorder * Generalized weakness * Weight loss * History of supraventricular tachycardia PLAN: * continuing the same medications and IV fluid * Would wait for the final pathology report * I spoke with Dr. Bowen at this morning. Once we have the final pathology report he will decide on a plan of treatment. * Will decide about the need for an [id number]-[id number] * physical and occupational therapies ordered * The findings so far were discussed this evening with the patient and his daughter who was at his bedside
[2017-08-17] VITALS (7 sets, daily range): BP systolic 123–174; BP diastolic 73–96; PULSE 58–67; TEMP 36.5–37; O2SAT 94–100
[2017-08-17] MEDS: ACETAMINOPHEN 500 MG TAB PO PRN ×2 (04:21→21:11)
[2017-08-17] MEDS: BOOST VANILLA PO SCH ×4 (07:40→20:00)
[2017-08-17] MEDS: FINASTERIDE 5 MG TAB PO SCH (07:40)
[2017-08-17] MEDS: METOPROLOL TARTRATE 25 MG TAB PO SCH ×2 (07:40→20:53)
[2017-08-17] MEDS: RASPBERRY SYRUP 5 ML UDP PO SCH ×4 (07:40→20:54)
[2017-08-17] MEDS: SODIUM CHLORIDE 0.9% 1000ML 1,000 ML IV SCH ×2 (07:40→16:55)
[2017-08-17] MEDS: VANCOMYCIN HCL 125 MG/2.5ML SOLN PO SCH ×4 (07:40→21:11)
[2017-08-17] MEDS: FLECAINIDE ACETATE 100 MG TAB PO SCH ×2 (07:41→21:11)
[2017-08-17 09:00] LABS: BASO % 0.5 %; BASO ABS # 0.06 K/uL (0-0.2); COMPLETE YES; EOS % 2.5 %; HEMATOCRIT 31.9 % (42-52); IG% 2.9 %; LYMPH % 5.1 %; LYMPH ABS # 0.67 K/uL (1.2-3.4); MEAN CORPUSCULAR HEMOGLOBIN 30.3 pg (25-34); MEAN CORPUSCULAR HGB CONC 32.6 g/dl (32-36); MEAN PLATELET VOLUME 11.8 fL (7.4-10.4); MONO % 6.1 %; NEUT % 82.9 %; PLATELET COUNT 501 K/uL (130-400); RED BLOOD COUNT 3.43 M/uL (4.7-6.1); WHITE BLOOD COUNT 13.23 K/uL (4.8-10.8)
[2017-08-17 09:18] LABS: ALB/GLOB RATIO 0.9 (0.9-2); ALKALINE PHOSPHATASE 74 U/L (45-117); ALT/SGPT 18 U/L (12-78); BLOOD UREA NITROGEN 13 mg/dl (7-18); BUN/CREATININE RATIO 13.3 (10-20); CALCIUM 8.3 mg/dl (8.5-10.1); CARBON DIOXIDE 22 mmol/L (21-32); CHLORIDE 109 mmol/L (98-107); CREATININE 0.97 mg/dl (0.60-1.40); GLUCOSE 132 mg/dl (70-99); SODIUM 140 mmol/L (136-145)
--- NOTE | 2017-08-17 09:46 | Hematology/Oncology Prog Note ---
Hematology/Onc Progress Note Date of Service Aug 17, 2017. Subjective 87-year-old male, a case of myeloproliferative disorder, presently he is under observation, has leukocytosis , thrombocytosis splenomegaly related to that. Now has right hilar soft tissue mass and multiple liver lesions which is suspicious for metastatic disease, ultrasound-guided biopsy from the liver lesion done recently, final pathology pending but preliminary report suggests non-small cell lung cancer, adenocarcinoma. Will wait for the final result. Will also stain malignant cells for EGFR, ALK, ROS 1 and PD L1 expression (will ask pathologist for that). I saw him at bedside, he also has C difficile colitis, diarrhea has improved, he says that he is feeling much better, appetite has improved, abdominal pain has improved, no blood in the stool, no fever. Hemodynamically he is stable. I reviewed with him regarding possibility of lung cancer diagnosis in his case, if he has no actionable mutation(Which is present in only 5 to 10% of the cases) , he will need systemic chemotherapy treatment. While he is here in the hospital, would like to proceed with port placement for upcoming chemotherapy treatment. Once we have a definitive diagnosis, will consider for PET-CT scan for further staging workup. Will follow up as an outpatient. Dr. David Bowen Hem/Onc (This note was completed using the dictation program Fluency Direct. As such, there may be misspellings, word substitutions, or other variations that should not change the essence of the clinical content of this encounter note. If there is need for further clarification, please direct questions to the provider listed above.) Vital Signs Vital Signs Past 12 Hours Date Time Temp Pulse Resp B/P (MAP) Pulse Ox O2 Delivery O2 Flow Rate FiO2 08/17/17 07:58 Room Air 08/17/17 07:28 36.5 63 20 147/83 (104) 98 Room Air 08/17/17 04:06 37.0 58 20 123/76 (92) 94 Room Air 08/17/17 00:00 Room Air 08/16/17 23:50 37.5 56 18 113/69 (84) 96 Room Air
[2017-08-17] MEDS: PANTOprazole INJ 40 MG in SYRINGE 0 ML IV SCH (10:15)
[2017-08-17] MEDS: HEPARIN SOD 5000 UNIT/0.5 ML CARP SQ SCH ×2 (10:15→20:55)
[2017-08-17 10:21] LABS: POTASSIUM 3.9 mmol/L (3.5-5.1)
--- NOTE | 2017-08-17 11:01 | Medical Consult ---
Consultation Date of Consultation: Aug 17, 2017. Attending Physician: Hernesto Jorgensen M.D. Reason for Consultation: port for chemo History of Present Illness recent dx of Rt lung Ca- will need chemotherapy Past Medical/Surgical History Medical Problems: (1) Abdominal pain Status: Acute (2) Diarrhea Status: Acute (3) Vasovagal near syncope Status: Acute Family History Cancer Hypertension No significant family history Stroke Social History Smoking Status: Former Smoker Marital Status: Occupation Status: retired Allergies Coded Allergies: Sulfa Antibiotics (Verified Adverse Reaction, Unknown, JOINT PAIN, ) Current Inpatient Medications Current Inpatient Medications Medications (Trade) Dose Ordered Sig/Lisandro Route Start Time Stop Time Status Last Admin Dose Admin Ioversol (Optiray 320) 116 ml UD PRN IV 08/14/17 18:15 08/18/17 18:14 Heparin Sodium (Porcine) (Heparin Sq 5000 Unit/0.5ml) 5,000 unit Q12H SQ 08/14/17 21:00 09/13/17 20:59 08/17/17 10:15 5,000 UNIT Sodium Chloride 1,000 ml @ 100 mls/hr Q10H IV 08/14/17 20:00 09/13/17 19:59 08/17/17 07:40 100 MLS/HR Pantoprazole Sodium 40 mg/ Syringe 10 ml @ 5 mls/min DAILY@11 IV 08/15/17 11:00 09/14/17 10:59 08/17/17 10:15 5 MLS/MIN Acetaminophen (Tylenol Tab) 500 mg Q4H PRN PO 08/14/17 20:00 09/13/17 19:59 08/17/17 04:21 500 MG Finasteride (Proscar Tab) 5 mg QAM PO 08/15/17 08:00 09/14/17 08:59 08/17/17 07:40 5 MG Flecainide Acetate (Tambocor Tab) 100 mg BID PO 08/14/17 21:00 09/13/17 20:59 08/17/17 07:41 100 MG Metoprolol Tartrate (Lopressor Tab) 25 mg BID PO 08/14/17 21:00 09/13/17 20:59 08/17/17 07:40 25 MG Diphenoxylate HCl/ Atropine (Lomotil Tab) 1 tab Q4H PRN PO 08/14/17 20:00 09/13/17 19:59 08/16/17 17:31 1 TAB Ioversol (Optiray 320) 116 ml UD PRN IV 08/14/17 21:00 08/18/17 20:59 Vancomycin HCl (Vancomycin Oral Soln) 125 mg QID PO 08/15/17 08:00 08/25/17 07:59 08/17/17 07:40 125 MG Raspberry (Raspberry Syrup 5ml Cup) 5 ml QID PO 08/15/17 08:00 08/29/17 07:59 08/17/17 07:40 5 ML Enteral Nutritional Formula (Boost) 1 can BID PO 08/15/17 20:00 09/14/17 19:59 08/17/17 07:40 1 CAN Physical Exam Date Time Temp Pulse Resp B/P (MAP) Pulse Ox O2 Delivery O2 Flow Rate FiO2 08/17/17 07:58 Room Air 08/17/17 07:28 36.5 63 20 147/83 (104) 98 Room Air 08/17/17 04:06 37.0 58 20 123/76 (92) 94 Room Air 08/17/17 00:00 Room Air 08/16/17 23:50 37.5 56 18 113/69 (84) 96 Room Air 08/16/17 19:30 36.9 73 20 135/80 (98) 95 Room Air 08/16/17 16:02 96 Room Air 08/16/17 15:45 36.6 55 18 120/78 (92) 96 Room Air General Appearance: no apparent distress Head: atraumatic Neck: supple Respiratory/Chest: no respiratory distress Extremities/Musculoskelatal: no pedal edema Skin: warm/dry Laboratory Results Last 24 Hours Test 08/17/17 08:33 08/17/17 09:33 White Blood Count 13.23 K/uL Red Blood Count 3.43 M/uL Hemoglobin 10.4 g/dL Hematocrit 31.9 % Mean Corpuscular Volume 93.0 fL Mean Corpuscular Hemoglobin 30.3 pg Mean Corpuscular Hemoglobin Concent 32.6 g/dl Platelet Count 501 K/uL Mean Platelet Volume 11.8 fL Neutrophils (%) (Auto) 82.9 % Lymphocytes (%) (Auto) 5.1 % Monocytes (%) (Auto) 6.1 % Eosinophils (%) (Auto) 2.5 % Basophils (%) (Auto) 0.5 % Neutrophils # (Auto) 10.97 K/uL Lymphocytes # (Auto) 0.67 K/uL Monocytes # (Auto) 0.81 K/uL Eosinophils # (Auto) 0.33 K/uL Basophils # (Auto) 0.06 K/uL RDW Standard Deviation 52.3 fL RDW Coefficient of Variation 15.5 % Immature Granulocyte % (Auto) 2.9 % Immature Granulocyte # (Auto) 0.39 K/uL Nucleated RBC Absolute Count (auto) 0.03 K/uL Nucleated Red Blood Cells % 0.2 % Sodium Level 140 mmol/L Potassium Level mmol/L 3.9 mmol/L Chloride Level 109 mmol/L Carbon Dioxide Level 22 mmol/L Anion Gap 9.0 mmol/L Blood Urea Nitrogen 13 mg/dl Creatinine 0.97 mg/dl Est Creatinine Clear Calc Drug Dose 54.3 ml/min Estimated GFR () 82.2 Estimated GFR (Non- 70.9 BUN/Creatinine Ratio 13.3 Random Glucose 132 mg/dl Calcium Level 8.3 mg/dl Total Bilirubin 0.4 mg/dl Aspartate Amino Transf (AST/SGOT) U/L 26 U/L Alanine Aminotransferase (ALT/SGPT) 18 U/L Alkaline Phosphatase 74 U/L Total Protein 6.3 gm/dl Albumin 3.0 gm/dl Globulin 3.3 gm/dl Albumin/Globulin Ratio 0.9 Assessment & Plan 08/18/17- for access port tomorrow in OR- local/ sedation
--- NOTE | 2017-08-17 13:46 | Anesthesiology Progress Note ---
Anesthesia Progress Note Date of Service Aug 17, 2017. Progress Notes Mr. Aldana is slated for an infusaport placement with Dr. Jha. He has newly found lung cancer. Hx/o failed cardiac ablation for SVT approximately 20 years ago but current EKG shows sinus rhythm with first degree AV block. Patient consented for MAC. Appears appropriate for procedure tomorrow.
--- NOTE | 2017-08-17 15:39 | Progress Note ---
Progress Note Date of Service Aug 17, 2017. 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 All his evaluation was completed. He underwent a liver biopsy under ultrasound guidance. Pathology final report which came out today showing evidence of small cell carcinoma of the lung with metastases. He is on vancomycin for his Clostridium difficile colitis. This morning his condition seems to be improving. He denied any headache or dizziness or lightheadedness. No chest pain no shortness of breath. No abdominal pain no nausea no vomiting. He is tolerating his diet very well. The number of his bowel movements have decreased overnight. The consistency of his stool he is changing. He is feeling stronger. appetite has improved. Ambulating. EXAMINATION: GENERAL:well developed. No distress. VITAL SIGNS: blood pressure 147/83, pulse 63, respiration 20, temperature 36.5, oxygen saturation 98% on room air SKIN: warm and dry. Vitiligo. HEENT: completely unremarkable her. NECK: supple. Nontender. No lymph node or thyroid enlargement. No JVD. HEART: regular heart sounds with 2/6 systolic murmur LUNGS: clear. No wheezing no rhonchi. ABDOMEN: soft nontender. No organomegaly or masses BACK: no spinal tenderness EXTREMITIES: no edema clubbing or cyanosis LABORATORY TESTS: WBC count 13,230, hemoglobin 10.4, hematocrit 31.9, platelet count 660236. 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 Followup recommended. No definite diagnosis * Clostridium difficile colitis * Myeloproliferative disorder * History of supraventricular tachycardia * Dehydration * Generalized weakness PLAN: * surgical consultation was requested. Patient was seen by Dr. Jha. Anticipating placement of an [id number] tomorrow * Continuing the same medications * Continuing therapies * The plan at this time is to complete his treatment for his intestinal infection, one his condition improves he can be discharged home. Dr. Bowen will complete his evaluation with a PET scan as an outpatient and proceed with chemotherapy as he recommends.
--- NOTE | 2017-08-17 17:01 | SURGERY PROGRESS NOTE ---
DATE: 08/17/2017 Mr. Guo was seen today on 08/17/2017. I discussed this case with Dr. Memo Wright and does indeed appear that we are dealing with a small cell lung carcinoma. He has got a nearly obstructing lesion in his right mainstem bronchus, but at this point, he has very little in the way of signs or symptoms and as I suspect, he will respond fairly quickly to chemotherapy. I would hold off intervening unless he develops a problem.
[2017-08-18] VITALS (12 sets, daily range): BP systolic 114–164; BP diastolic 65–87; PULSE 55–65; TEMP 36.5–37.2; O2SAT 94–98
[2017-08-18] MEDS: ACETAMINOPHEN 500 MG TAB PO PRN ×2 (03:14→21:02)
[2017-08-18] MEDS ORDERED: CEFAZOLIN IV 1,000 MG in SYRINGE 0 ML IV SCH (06:00)
[2017-08-18] MEDS ORDERED: CEFAZOLIN IV 1,000 MG in DEXTROSE 5% 50ML 50 ML IV SCH (06:00)
[2017-08-18] MEDS: SODIUM CHLORIDE 0.9% 1000ML 1,000 ML IV SCH ×3 (06:09→23:33)
[2017-08-18 06:45] LABS: BASO % 0.5 %; BASO ABS # 0.05 K/uL (0-0.2); COMPLETE YES; EOS % 3.6 %; LYMPH % 6.4 %; LYMPH ABS # 0.66 K/uL (1.2-3.4); MEAN CELL VOLUME 93.2 fL (80-100); MEAN CORPUSCULAR HEMOGLOBIN 30.2 pg (25-34); MEAN CORPUSCULAR HGB CONC 32.4 g/dl (32-36); MEAN PLATELET VOLUME 10.8 fL (7.4-10.4); NEUT % 77.5 %; PLATELET COUNT 485 K/uL (130-400); RED BLOOD COUNT 3.11 M/uL (4.7-6.1); WHITE BLOOD COUNT 10.37 K/uL (4.8-10.8)
[2017-08-18 07:19] LABS: CALCIUM 8.1 mg/dl (8.5-10.1); CREATININE 0.91 mg/dl (0.60-1.40); POTASSIUM 4.3 mmol/L (3.5-5.1)
[2017-08-18 07:22] LABS: ALB/GLOB RATIO 1.1 (0.9-2)
[2017-08-18] MEDS: BOOST VANILLA PO SCH ×4 (08:00→21:01)
[2017-08-18] MEDS ORDERED: MIDAZOLAM HCL 1 MG/ML 2ML VIAL ONE (08:05)
[2017-08-18] MEDS ORDERED: FENTANYL CITRATE INJ 50 MCG/1 ML 2 ML VIAL ONE (08:05)
[2017-08-18] MEDS ORDERED: THROMBIN FOR SOLN 20000 UNIT KIT ONE (08:25)
[2017-08-18] MEDS ORDERED: LIDOCAINE HCL 1% 20 ML VIAL ONE (08:25)
[2017-08-18] MEDS ORDERED: HEPARIN SOD (PORCINE) 1000 UNIT/ML 10 ML VIAL ONE (08:26)
[2017-08-18] MEDS ORDERED: CEFAZOLIN SOD 1000MG/5 ML IV PUSH IV ONE (08:29)
--- NOTE | 2017-08-18 08:34 | History & Physical Bridge Note ---
H&P Re-Evaluation Bridge Note: I have examined the patient, reviewed the History & Physical and in the interval since the performance of the History & Physical I have noted the following changes of clinical significance: No changes noted
[2017-08-18] MEDS ORDERED: ONDANSETRON INJ 2 MG/ML 2 ML VIAL IV PRN (09:00)
[2017-08-18] MEDS ORDERED: ATROPINE SULFATE 0.1 MG/ML 5ML SYR IV PRN (09:00)
[2017-08-18] MEDS ORDERED: FENTANYL CITRATE INJ 50 MCG/1 ML 2 ML VIAL IV PRN (09:00)
[2017-08-18] MEDS ORDERED: EpHEDrine SULFATE INJ 50 MG/ML AMP IV PRN (09:00)
[2017-08-18] MEDS: CEFAZOLIN SOD 1 GM VIAL ONE ×2 (09:26→10:58)
--- NOTE | 2017-08-18 09:45 | [facility] Operative Report ---
Operative Report Operative Date Aug 18, 2017. Pre-Operative Diagnosis Right Lung Cancer Post-Operative Diagnosis Same as preop Procedure(s) Performed Infusaport Insertion Left Subclavian Vein Surgeon Dr. Orestes Jha Estimated Blood Loss 10 ml Findings placed via Lt subclavian vein Specimens None per Surgeon Anesthesia local/ sedation Complication(s) None Disposition Recovery Room / PACU I attest to the content of the Intraoperative Record and any orders documented therein. Any exceptions are noted below.
--- NOTE | 2017-08-18 09:51 | Anesthesiology Progress Note ---
Anesthesia Post Op Note Date & Time Aug 18, 2017 at 09:51 Vital Signs Pain Intensity: 5.0 Vital Signs Past 12 Hours Date Time Temp Pulse Resp B/P (MAP) Pulse Ox O2 Delivery O2 Flow Rate FiO2 08/18/17 07:51 36.7 58 14 155/87 (109) 97 Room Air 08/18/17 07:35 36.5 60 16 164/86 (112) 98 Room Air 08/18/17 04:11 37.1 55 20 121/68 (85) 96 Nasal Cannula 08/18/17 00:05 96 Room Air 08/17/17 23:55 36.8 63 18 135/73 (93) 97 Room Air Notes Mental Status: alert / awake / arousable, participated in evaluation Pt Amnestic to Procedure: Yes Nausea / Vomiting: adequately controlled Pain: adequately controlled Airway Patency, RR, SpO2: stable & adequate BP & HR: stable & adequate Hydration State: stable & adequate Anesthetic Complications: no major complications apparent
--- NOTE | 2017-08-18 10:01 | OPERATIVE REPORT ---
DATE OF OPERATION: 08/18/2017 NAME OF OPERATION: Access port placement. PREOPERATIVE DIAGNOSIS: Lung cancer. POSTOPERATIVE DIAGNOSIS: Same. STAFF SURGEON: Dr. Orestes Jha. ANESTHESIA: Local with sedation. DESCRIPTION OF PROCEDURE: The patient was brought into the operating room and placed on the operating table in the supine position. His upper chest was prepped and draped in the usual fashion. The left side was approached. 1% plain lidocaine was used to anesthetize the skin and subcutaneous tissue over the left deltopectoral groove. I made an incision down to the left cephalic vein. I was unable to pass the catheter or wires through this vein into the subclavian vein. Therefore, it was ligated and then the patient placed in Trendelenburg position and then using a puncture technique, the left subclavian vein was localized, a wire passed, a dilator introducer passed over the wire, the wire removed, and the dilator removed. Catheter passed through the introducer, positioned appropriately, aspirated and flushed with heparinized solution. The introducer was removed. The pocket was fashioned in the chest wall. The port was attached to the catheter, placed into the pocket and secured to the chest wall using 3-0 Prolene suture. The port was aspirated and flushed with heparinized solution and then the site was irrigated with antibiotic solution. Subcutaneous tissue reapproximated using 2-0 chromic suture. Skin reapproximated with 4-0 nylon suture. As a note, the patient's skin was extremely thin and fragile. He did have a 1-cm skin tear at the base of the right neck area, on which a small dressing was applied. I attest to the content of the Intraoperative Record and any orders documented therein. Any exception s are noted below.
[2017-08-18] MEDS: PANTOprazole INJ 40 MG in SYRINGE 0 ML IV SCH (10:36)
[2017-08-18] MEDS: FINASTERIDE 5 MG TAB PO SCH (10:36)
[2017-08-18] MEDS: FLECAINIDE ACETATE 100 MG TAB PO SCH ×2 (10:36→21:03)
--- NOTE | 2017-08-18 10:40 | DIAGNOSTIC IMAGING REPORT ---
CHEST ONE VIEW PORTABLE CLINICAL HISTORY: Chest x-ray status post A-Port catheter placement COMPARISON STUDY: 08/14/2017 FINDINGS: The heart is enlarged. There is a left subclavian A-Port catheter. The tip projects over the superior vena cava. There is no pneumothorax. There is a right hilar mass.[ There is no focal pulmonary consolidation. No pleural effusions are visualized. There is no evidence of failure. IMPRESSION: 1. Right hilar mass 2. No evidence of pneumothorax status post placement of a left subclavian A-Port catheter Electronically signed by: Santana Negron M.D. 08/18/2017 10:38 AM Dictated Date/Time: 08/18/2017 10:37 AM
[2017-08-18] MEDS: VANCOMYCIN HCL 125 MG/2.5ML SOLN PO SCH ×4 (10:57→21:02)
[2017-08-18] MEDS: RASPBERRY SYRUP 5 ML UDP PO SCH ×4 (10:57→21:02)
[2017-08-18] MEDS: METOPROLOL TARTRATE 25 MG TAB PO SCH ×2 (10:57→21:03)
[2017-08-18] MEDS ORDERED: PROPOFOL IV EMULSION 10 MG/ML 20 ML VIAL IV ONE (11:00)
--- NOTE | 2017-08-18 19:09 | Hematology/Oncology Prog Note ---
Hematology/Onc Progress Note Date of Service Aug 18, 2017. Subjective 87-year-old male, admitted at [facility] for increasing diarrhea since May,, now diagnosed with C difficile colitis, receiving oral vancomycin gradual improvement of the GI symptoms, no blood in the stool, had lost significant weight recently, also found to have right hilar soft tissue mass as well as multiple liver lesions which is suspicious for metastatic disease. FNA from the liver lesion--> small cell lung cancer, I saw him at bedside, sitting comfortably in the bed, has some mild diarrhea, no increasing nausea or vomiting, hemodynamically has remained stable, pulse rate is slightly on the lower side around 60 per minute, O2 saturation on room air is around 96%. No fever. He denies any new cardiac or pulmonary symptoms, no hemoptysis. Port placement done today Reviewed his blood workup done today -WBC 60616, H&H of 9.4/29, Platelet count of 485,000. -BUN/Creat: 11/0.9, normal liver function test. He I reviewed with him and his family member was at bedside regarding the recent biopsy report from the 1 of the liver lesion which is consistent with small cell lung cancer, he has stage IV disease, has some small 5 mm focus involving the brain which is too small to characterize but it could be metastatic focus, he does not have any specific symptoms related to that at this time. Discussed with him regarding the role of systemic chemotherapy that can be considered, overall treatment goal which would be palliative and not curative. I would consider for combination of carboplatin and etoposide chemotherapy, reviewed with him regarding treatment schedule side effect profile and he agrees for that. I am planning to start chemotherapy treatment next week as an outpatient in the office. Chemotherapy schedule: -Carboplatin at AUC of 5 on day 1 -Etoposide at 100 mg/m2 daily for 3 days. -repeating chemotherapy every 21 days. He also has leukocytosis, thrombocytosis and immature WBCs in the peripheral blood related to the underlying myeloproliferative disorder, MPL mutation positive, also has splenomegaly related to that. He is likely to go home over the weekend. He is also at high risk for tumor lysis, I would like to start prophylactic allopurinol at 300 mg once a day, he can start taking allopurinol when he goes home from the hospital (already e-prescribed to the [facility] pharmacy) I also e-prescribed a Compazine and Zofran for the symptomatic treatment of nausea vomiting. Will check LDH and uric acid tomorrow. Dr. David Bowen Hem/Onc (This note was completed using the dictation program Fluency Direct. As such, there may be misspellings, word substitutions, or other variations that should not change the essence of the clinical content of this encounter note. If there is need for further clarification, please direct questions to the provider listed above.) Vital Signs Vital Signs Past 12 Hours Date Time Temp Pulse Resp B/P (MAP) Pulse Ox O2 Delivery O2 Flow Rate FiO2 08/18/17 16:03 96 Room Air 08/18/17 15:33 36.8 59 20 126/65 (85) 97 Room Air 08/18/17 12:09 37.0 56 15 153/81 (105) 96 Room Air 08/18/17 11:40 36.6 59 13 152/82 (105) 97 Room Air 08/18/17 11:11 Room Air 08/18/17 10:56 16 147/78 (101) 08/18/17 10:31 37.2 60 16 157/77 (103) 95 Room Air 08/18/17 10:30 Room Air 08/18/17 10:10 54 22 131/68 92 Room Air 08/18/17 10:00 36.6 55 21 134/65 93 Room Air 08/18/17 09:50 54 22 137/70 93 Room Air 08/18/17 09:44 36.7 59 20 161/67 94 Room Air 08/18/17 07:51 36.7 58 14 155/87 (109) 97 Room Air 08/18/17 07:35 36.5 60 16 164/86 (112) 98 Room Air
--- NOTE | 2017-08-18 23:36 | Progress Note ---
Progress Note Date of Service Aug 18, 2017. Progress Note 87-year-old male with the following problems * Metastatic small cell carcinoma of the lung * Liver metastases * Clostridium difficile colitis * Dehydration * History of supraventricular tachycardia The diagnoses as been established. Patient was seen in oncology consultation by Dr. Bowen. Anticipate starting his chemotherapy early next week in his office. Today the patient underwent the placement of an Owbefy-d-Prun. The procedure was well tolerated. His condition has improved. He denies any headache no dizziness no lightheadedness. No chest pain. He does have cough. No hemoptysis. The cough is mostly when he stands up. No abdominal pain no nausea no vomiting. Still having frequent bowel movements down to 3 compared to the 15 and 16 bowel movements that he has had initially.he is tolerating his therapy. He is ambulating. EXAMINATION: GENERAL : Well developed. Well nourished. No acute distress. VITAL SIGNS : Blood Pressure : 126/65, pulse 59, respirations 20, temperature 36.8, oxygen saturation 97% on room air SKIN : Warm and dry. Multiple areas of vitiligo. Multiple hematomas and bruises. HEENT :He was glasses. No mucosal abnormal. NECK : Supple. No adenopathy. No thyromegaly. No JVD. Normal carotid pulses. HEART: Regular heart tones with 2/6 systolic murmur. No rub no gallop. LUNGS: minimal rhonchi ABDOMEN: Soft nontender. No organomegaly or masses BACK: No spine or CVA tenderness. EXTREMITIES : No edema clubbing or cyanosis. No joint or muscle tenderness. Good peripheral pulses. LABORATORY TESTS: sodium 142, potassium 4.3, chloride 109, CO2 25, BUN 11, creatinine 0.91, glucose 98, calcium 8.1, total bilirubin 0.3, AST 33, ALT 25, alkaline phosphatase 86, total protein 5.6, albumin 2.9, uric acid 4.8, LDH 658. 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 Bowen in this evening and earlier today. He is planning on starting his chemotherapy next Tuesday in his office.
[2017-08-19 03:46] VITALS: BP 134/65; PULSE 55; TEMP 37.2; O2SAT 97
[2017-08-19 06:30] LABS: BASO % 0.5 %; BASO ABS # 0.06 K/uL (0-0.2); COMPLETE YES; EOS % 3.5 %; LYMPH % 4.4 %; LYMPH ABS # 0.55 K/uL (1.2-3.4); MEAN CELL VOLUME 93.5 fL (80-100); MEAN CORPUSCULAR HGB CONC 32.1 g/dl (32-36); MEAN PLATELET VOLUME 10.7 fL (7.4-10.4); MONO % 6.8 %; NEUT % 81.8 %; PLATELET COUNT 450 K/uL (130-400); WHITE BLOOD COUNT 12.55 K/uL (4.8-10.8)
[2017-08-19 07:07] LABS: BUN/CREATININE RATIO 11.5 (10-20); CALCIUM 8.1 mg/dl (8.5-10.1); CREATININE 0.81 mg/dl (0.60-1.40); POTASSIUM 4.2 mmol/L (3.5-5.1)
[2017-08-19 08:09] VITALS: BP 153/84; PULSE 63; TEMP 36.6; O2SAT 95
[2017-08-19] MEDS: RASPBERRY SYRUP 5 ML UDP PO SCH ×4 (08:17→20:49)
[2017-08-19] MEDS: FINASTERIDE 5 MG TAB PO SCH (08:17)
[2017-08-19] MEDS: VANCOMYCIN HCL 125 MG/2.5ML SOLN PO SCH ×4 (08:17→20:49)
[2017-08-19] MEDS: BOOST VANILLA PO SCH ×4 (08:17→20:52)
[2017-08-19] MEDS: METOPROLOL TARTRATE 25 MG TAB PO SCH ×2 (08:17→20:50)
[2017-08-19] MEDS: FLECAINIDE ACETATE 100 MG TAB PO SCH ×2 (08:18→20:50)
[2017-08-19] MEDS: ALLOPURINOL 300 MG TAB PO SCH (08:18)
[2017-08-19] MEDS: PANTOprazole INJ 40 MG in SYRINGE 0 ML IV SCH (08:18)
[2017-08-19] MEDS ORDERED: ONDANSETRON INJ 8 MG in DEXTROSE 5% 50ML 50 ML IV PRN (08:30)
[2017-08-19] MEDS: SODIUM CHLORIDE 0.9% 1000ML 1,000 ML IV SCH ×2 (09:16→19:58)
[2017-08-19 11:34] VITALS: BP 151/81; PULSE 60; TEMP 36.6; O2SAT 96
[2017-08-19 14:46] VITALS: BP 136/74; PULSE 61; TEMP 37.2; O2SAT 95
[2017-08-19 16:02] VITALS: O2SAT 96
[2017-08-19] MEDS: ACETAMINOPHEN 500 MG TAB PO PRN ×2 (16:50→20:57)
[2017-08-19 20:31] VITALS: BP 135/79; PULSE 66; TEMP 36.7; O2SAT 96
--- NOTE | 2017-08-19 21:25 | Progress Note ---
Progress Note Date of Service Aug 19, 2017. 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 He denied any headache. No dizziness. No chest pain. No shortness of breath. He is complaining of some vague nonspecific abdominal discomfort. He felt a little nauseous today. No vomiting. He is having frequent bowel movements. Not having any problem urinating. EXAMINATION: GENERAL : Well developed. Well nourished. No acute distress. VITAL SIGNS : Blood Pressure : 135/79, pulse 66, respiration 18, and pressure 36.7, oxygen saturation 96% on room SKIN : areas of vitiligo. Multiple ecchymotic areas. NECK : Supple. No adenopathy. No thyromegaly. No JVD. Normal carotid pulses. HEART: Irregular heart sounds consistent with atrial fibrillation. No murmur , rub or gallop. LUNGS: Clear. Normal breath sounds. ABDOMEN: Soft nontender. No organomegaly or masses. Good bowel sounds. BACK: No spine or CVA tenderness. EXTREMITIES : No edema clubbing or cyanosis LABORATORY TESTS: WBC count 12,550, hemoglobin 9.3, hematocrit 29%, platelet count 450,000. Sodium 141, potassium 4.2, chloride 109, CO2 26, BUN 9, creatinine 0.81, glucose 92, calcium 8.1, total bilirubin 0.3, AST 38, ALT 31, alkaline phosphatase 89, albumin 5.7, albumin 2.9. 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 He had his first dose of allopurinol this morning * he is ambulating. * As noted yesterday Dr. Bowen and is planning on starting his chemotherapy on Tuesday. Patient already had and a-port placed yesterday.
[2017-08-20] VITALS: O2SAT 96
[2017-08-20 00:16] VITALS: BP 116/66; PULSE 57; TEMP 36.9; O2SAT 94
[2017-08-20 04:11] VITALS: BP 146/82; PULSE 58; TEMP 36.7; O2SAT 93
[2017-08-20 06:18] LABS: BASO % 0.2 %; BASO ABS # 0.03 K/uL (0-0.2); COMPLETE YES; EOS % 4.2 %; HEMATOCRIT 29.1 % (42-52); IG% 4.4 %; LYMPH % 4.7 %; LYMPH ABS # 0.59 K/uL (1.2-3.4); MEAN CELL VOLUME 93.6 fL (80-100); MEAN CORPUSCULAR HEMOGLOBIN 30.5 pg (25-34); MEAN CORPUSCULAR HGB CONC 32.6 g/dl (32-36); MEAN PLATELET VOLUME 10.8 fL (7.4-10.4); MONO % 7.4 %; NEUT % 79.1 %; PLATELET COUNT 413 K/uL (130-400); RED BLOOD COUNT 3.11 M/uL (4.7-6.1); WHITE BLOOD COUNT 12.58 K/uL (4.8-10.8)
[2017-08-20 06:58] LABS: ALT/SGPT 35 U/L (12-78); AST/SGOT 40 U/L (15-37); BLOOD UREA NITROGEN 8 mg/dl (7-18); BUN/CREATININE RATIO 9.5 (10-20); CALCIUM 8.2 mg/dl (8.5-10.1); CARBON DIOXIDE 26 mmol/L (21-32); CHLORIDE 108 mmol/L (98-107); CREATININE 0.88 mg/dl (0.60-1.40); GLUCOSE 98 mg/dl (70-99); POTASSIUM 4.1 mmol/L (3.5-5.1); SODIUM 141 mmol/L (136-145)
[2017-08-20 07:01] LABS: ALKALINE PHOSPHATASE 99 U/L (45-117)
[2017-08-20 07:19] VITALS: BP 171/84; PULSE 61; TEMP 36.6; O2SAT 94
[2017-08-20] MEDS: METOPROLOL TARTRATE 25 MG TAB PO SCH (07:32)
[2017-08-20] MEDS: FINASTERIDE 5 MG TAB PO SCH (07:32)
[2017-08-20] MEDS: ALLOPURINOL 300 MG TAB PO SCH (07:33)
[2017-08-20] MEDS: FLECAINIDE ACETATE 100 MG TAB PO SCH (07:33)
[2017-08-20] MEDS: RASPBERRY SYRUP 5 ML UDP PO SCH (07:33)
[2017-08-20] MEDS: VANCOMYCIN HCL 125 MG/2.5ML SOLN PO SCH (07:33)
[2017-08-20] MEDS ORDERED: PANTOprazole SOD 40 MG TAB PO SCH (08:00)
[2017-08-20] MEDS ORDERED: PRT40 PO (09:26)
[2017-08-20] MEDS ORDERED: ALL300 PO (09:26)
[2017-08-20] MEDS ORDERED: NF1094 PO (09:26)
[2017-08-20] MEDS ORDERED: Boost PO (09:26)
[2017-08-20] MEDS ORDERED: ACET-24 PO (09:26)
--- NOTE | 2017-08-20 09:31 | Discharge Instructions ---
Discharge Instructions Date of Service Aug 20, 2017. Admission Reason for Admission: Small cell carcinoma of the lung with liver metastases Myeloproliferative disorder Clostridium difficile colitis Dehydration Weight loss History of supraventricular tachycardia Enlargement of the prostate Discharge Discharge Diagnosis / Problem: small cell carcinoma of the lung with liver metastases. Clostridium diffic Discharge Goals Goal(s): Decrease discomfort, Increase independence, Improve disease control, Improve nutritional status Activity Recommendations Activity Limitations: as noted below (need to be careful with exertion. Rest as much as you need.) . Instructions / Follow-Up Instructions / Follow-Up Dr. Bowen as scheduled on Tuesday08/23/2017 to start her chemotherapy Dr. Bowen already called prescriptions to your pharmacy that you can pickle maker today You have 2 new prescriptions in addition to what Dr. Bowen called in for U including vancomycin and pantoprazole Dr. Corea in 10 days please call the office on Tuesday for an appointment Current Hospital Diet Patient's current hospital diet: Regular Diet Discharge Diet Recommended Diet: Regular Diet Procedures Procedures Performed: Infusaport Insertion Left Subclavian Vein Pending Studies Studies pending at discharge: no Medical Emergencies . Who to Call and When: Medical Emergencies: If at any time you feel your situation is an emergency, please call 911 immediately. . Non-Emergent Contact Non-Emergency issues call your: Primary Care Provider . . "Provider Documentation" section prepared by Hernesto Corea. . VTE Core Measure Inpt VTE Proph given/why not?: Treatment not indicated
[2017-08-20 09:52] VITALS: BP 171/84; PULSE 61; TEMP 36.6; O2SAT 94
[2017-08-20] MEDS: BOOST VANILLA PO SCH ×2 (09:58)
--- NOTE | 2017-08-20 10:08 | SURGERY PROGRESS NOTE ---
DATE: 08/20/2017 DATE: 08/20/2017 Mr. Guo was seen today. He actually looks quite good considering everything he has been through. He has a small cell lung carcinoma and treatment will start next week. He already has his port placed. He is being discharged today. I discussed this with Dr. Corea. I want to see him back in 2 weeks with a chest x-ray. I still have concerns that he could run into problems with his collapse of his lower lobe or middle lobe. My hope is that he responds to the chemotherapy and we see reduction in his tumor burden in which case his airway should be fine.
--- NOTE | 2017-08-20 19:58 | Progress Note ---
Progress Note Date of Service Aug 20, 2017. Progress Note 87-year-old male admitted with severe diarrhea and dehydration and generalized weakness. On admission his CT scan of the abdomen and pelvis showed evidence of metastatic disease. Subsequently a CT scan of the chest showed evidence of a large right hilar mass.he had multiple liver metastases. he was seen in consultation by Dr. Josh Munguai in thoracic surgery. He recommended biopsy of one of the liver masses. Ultrasound guided biopsy of one of the liver masses revealed evidence of small cell carcinoma. He has a stage IV carcinoma with liver metastases. Oncology consultation was requested. he was seen by Dr. Bowen. An Wfkeal-i-Lnxz was also placed. His stool did show evidence of Clostridium difficile infection. He was started on vancomycin. He denied any headache. He has been complaining of sinus and nasal congestion. He had drainage this morning. He felt that that improved his headaches. When he had the headache she also was complaining of nausea and that seems to have subsided. He has been tolerating his diet. He did have an MRI of the brain as part of his evaluation for his small cell carcinoma. There is one area which is really not well defined. Recommendation was to repeat an imaging study in about one month. EXAMINATION: GENERAL : Well developed. Well nourished. No acute distress. VITAL SIGNS : Blood Pressure : 171/84, pulse 61, respirations 20, temperature 36.6, oxygen saturation 94% on room air SKIN : Warm and dry. multiple areas of vitiligo. Multiple ecchymotic areas. HEENT :No mucosal abnormalities NECK : Supple. No adenopathy. No thyromegaly. No JVD. HEART: Regular heart tones with 2/6 systolic murmur. No rub no gallop. LUNGS: Clear. Normal breath sounds. ABDOMEN: Soft nontender. No organomegaly or masses. Good bowel sounds. BACK: No spine or CVA tenderness. EXTREMITIES : No edema clubbing or cyanosis. No joint or muscle tenderness. Good peripheral pulses. LABORATORY TESTS: WBC count 12,580, hemoglobin 9.5, hematocrit 29.1, platelet count 413,000. Sodium 141, potassium 4.1, chloride 108, CO2 26, BUN 8, creatinine 0.88, glucose 98, calcium 8.2, total bilirubin 0.3, AST 40, ALT 35, alkaline phosphatase 99, total protein 5.8, albumin 2.9. ASSESSMENT: * small cell carcinoma of the lung with metastases including liver metastases * Clostridium difficile colitis * Myeloproliferative disorder * Dehydration * Generalized weakness * History of supraventricular tachycardia * Vitiligo * Placement of A -port PLAN: * patient discharged today * Schedule to undergo his first course of chemotherapy on Tuesday by Dr. Bowen * I spoke with Dr. Munguia this morning. He will see the patient in about 2 weeks. Repeat his chest x-ray. Because of the extent of his pulmonary mass he was concerned about relapse of the right middle and lower lobe. The expectation is that patient will respond to the chemotherapy so that would be avoided. * I will see him in the office in about 10 days
[2017-08-23 15:37] LABS: O&P SOURCE OTHER-STOOL
== END 2017-08-20 11:05 | disposition home or self-care (01) | DRG 181 ==
LOC: C.EDB 16:11 → C.4E 19:53 → ENRESERV 20:02
PROVIDERS: ADMIT Internal Medicine; ATTEND Internal Medicine
PROC: 0JH63XZ Insertion of Tunneled Vascular Access Device into Chest Subcutaneous Tissue and Fascia, Percutaneous Approach (ICD-10-PCS; principal; 2017-08-18 08:45)
PROC: 0FB23ZX Excision of Left Lobe Liver, Percutaneous Approach, Diagnostic (ICD-10-PCS; principal; 2017-08-18 08:45)
DX: C34.90 Malignant neoplasm of unspecified part of unspecified bronchus or lung (principal); C78.7 Secondary malignant neoplasm of liver and intrahepatic bile duct; A04.72 Enterocolitis due to Clostridium difficile, not specified as recurrent; K21.9 Gastro-esophageal reflux disease without esophagitis; N40.0 Benign prostatic hyperplasia without lower urinary tract symptoms; E86.0 Dehydration; Z87.440 Personal history of urinary (tract) infections; Z79.82 Long term (current) use of aspirin; Z87.891 Personal history of nicotine dependence; Z88.2 Allergy status to sulfonamides; Z80.9 Family history of malignant neoplasm, unspecified; Z82.49 Family history of ischemic heart disease and other diseases of the circulatory system

== ENCOUNTER → 2017-10-05 | Outpatient (CLI) | payer OTHER ==
[~2017-10-05] MED LIST changes: +ACET-1256 PO; +ACET-24 PO; +ALL300 PO; +ATV5 PO; +Boost PO; +DICL1GEL12 TD; +DXM4 PO; +FEXO1TAB49 PO; +FLUO10CA24 PO; +FLUO10CA48 PO; +GADAVIST IV PRN; +LORA-741 PO; +METH500T3 PO; +NF1094 PO; +ONDA-170 PO; +PANT1TAB4 PO; +PANT40TA PO; +VLTG EXT
--- NOTE | 2017-10-05 18:00 | DIAGNOSTIC IMAGING REPORT ---
BRAIN COMBO CLINICAL HISTORY: 87 years-old Male presenting with SMALL CELL CARCINOMA RT LUNG,LIVER METS, lesion in the left parietal lobe. TECHNIQUE: Multisequence, multiplanar MR imaging of the brain was performed before and after the administration of intravenous contrast. IV contrast: 6 mL of Gadavist. COMPARISON: 08/15/2017. FINDINGS: Proportional ventricular and sulcal prominence, likely age-related parenchymal volume loss. Periventricular and subcortical white matter T2/FLAIR hyperintensity, nonspecific but likely indicative of chronic small vessel ischemic change. No mass effect or midline shift. No restricted diffusion to suggest acute ischemia. No hemorrhage. No extra-axial fluid collection. T2 skull base flow voids preserved. Unchanged faint focus of enhancement in the left frontotemporal region (series 8 image 15). This is unchanged in appearance from prior. Additional faint focus of enhancement in the anterior right temporal lobe (series 8 image 10) not present on prior exam though not visualized on coronal postcontrast images. Additionally there is suggestion of leptomeningeal enhancement along the superior left cerebellar hemisphere (series 8 image 9; series 9 image 18). Bone marrow signal intensity within the calvarium within normal limits. T1 hypointense, T2 hypointense, nonenhancing focus in the base of the dens is partially evaluated and may represent focal sclerosis or bone island. This is unchanged from prior. Bilateral [place] lenses are absent. IMPRESSION: 1. Stable appearance of the previously noted faint focus of enhancement in the left frontotemporal region. However, additional new faint focus of enhancement in the anterior right temporal lobe as well as left meningeal enhancement along the superior left cerebellar hemisphere. Although these findings are subtle, these are suspicious for metastatic disease, both parenchymal and leptomeningeal. Electronically signed by: Memo Lafleur M.D. 10/05/2017 5:59 PM Dictated Date/Time: 10/05/2017 5:50 PM
== END | disposition home or self-care (01) ==
LOC: C.MRI 16:35
PROVIDERS: ATTEND Physician Assistant
DX: C34.91 Malignant neoplasm of unspecified part of right bronchus or lung (principal); C78.7 Secondary malignant neoplasm of liver and intrahepatic bile duct; G93.9 Disorder of brain, unspecified

== ENCOUNTER 2017-11-14 08:52 | Inpatient (IN) | payer OTHER ==
[~2017-11-14] VITALS: Ht 175.3 cm; Wt 67.9 kg
[~2017-11-14 08:52] MED LIST changes: -ACET-1256 PO; -ATV5 PO; -DICL1GEL12 TD; -DXM4 PO; -FEXO1TAB49 PO; -FLUO10CA24 PO; -FLUO10CA48 PO; -GADAVIST IV PRN; -LORA-741 PO; -METH500T3 PO; -ONDA-170 PO; -PANT1TAB4 PO; -PANT40TA PO; +PRT40 PO; -VLTG EXT
[2017-11-14] MEDS ORDERED: ACETAMINOPHEN 325 MG TAB PO STA (09:48)
[2017-11-14] MEDS ORDERED: METOCLOPRAMIDE HCL INJ 5 MG/ML 2 ML VIAL IV. STA (09:48)
[2017-11-14] MEDS ORDERED: DiphenhydrAMINE HCL 50 MG/ML VIAL IV STA (09:48)
--- NOTE | 2017-11-14 09:53 | EMERGENCY ROOM VISIT NOTE ---
History Report prepared by Janessa: Toby Rankin Under the Supervision of: Dr. Parag Perkins M.D. First contact with patient: 09:33 Chief Complaint: HEADACHE Stated Complaint: EXTREME HEADACHE, LUNG CANCER History of Present Illness The patient is an 87 year old white male with a past medical history of metastatic lung and liver cancer who presents to the ED with a cc of a posterior headache beginning last night. Positive neck stiffness. Negative recent falls, cough, fever, chills, chest pain, shortness of breath, nausea, vomiting, abdominal pain, diarrhea, weakness, or numbness. He rates his pain a 10/10 in severity. The patient woke up yesterday with a sore neck. However, his symptoms worsened in the night last night and progressed into a severe headache that, what the patient describes, "pulsed with his heartbeat." He states that sitting up makes his headache feel better than lying down. He is currently receiving chemotherapy treatments. He takes Aspirin every morning without any other blood thinners. He did not take anything for the pain today. Source of History: patient Onset: last night Position: head Symptom Intensity: severe Quality: ache Timing: constant Associated Symptoms: + neck pain, No fevers, No chills, No cough, No chest pain, No SOB, No nausea, No vomiting, No abdominal pain, No diarrhea, No weakness, No numbness Review of Systems See HPI for pertinent positives and negatives. A total of ten systems were reviewed and were otherwise negative. Past Medical & Surgical Medical Problems: (1) Colitis (2) DIARRHEA, ? METASTATIC DISEASE (3) Thrombocytosis (4) UTI (urinary tract infection) (5) Vitiligo Surgical Problems: (1) H/O prior ablation treatment (2) H/O prostatectomy Family History Cancer Hypertension No significant family history Stroke Social History Smoking Status: Former Smoker Alcohol Use: occasionally Marital Status: Occupation Status: retired Current/Historical Medications Scheduled Allopurinol (Allopurinol), 300 MG PO DAILY Aspirin (Aspirin), 81 MG PO QAM Fexofenadine Hcl (Nirali Allergy), 180 MG PO DAILY Finasteride (Proscar), 5 MG PO QAM Flecainide (Tambocor), 100 MG PO BID Metoprolol Tartrate (Lopressor), 25 MG PO BID Pantoprazole (Pantoprazole Sodium), 40 MG PO QAM Triamcinolone Acet (Triamcinolone Acetonide), 1 APPLN TOP BID [Boost], 1 CAN PO BID Scheduled PRN Acetaminophen (Sb Non-Aspirin Extra Stre), 500 MG PO Q4H PRN for Pain Diphenhydramine Hcl (Benadryl Allergy), 1 TAB PO QAM PRN for ALLERGIES Methylcellulose (Laxative) (Citrucel), 500 MG PO for Constipation Allergies Coded Allergies: Sulfa Antibiotics (Verified Adverse Reaction, Unknown, JOINT PAIN, 11/14/17 ) Physical Exam Vital Signs Date Time Temp Pulse Resp B/P (MAP) Pulse Ox O2 Delivery O2 Flow Rate FiO2 11/14/17 14:14 64 18 165/92 97 Room Air 11/14/17 13:03 97 Room Air 11/14/17 13:02 64 20 165/92 97 Room Air 11/14/17 12:41 67 11/14/17 12:15 59 18 122/69 94 Room Air 11/14/17 10:21 66 11/14/17 10:17 94 Room Air 11/14/17 10:17 67 18 175/89 98 Room Air 11/14/17 08:58 36.8 59 18 191/97 98 Room Air Physical Exam GENERAL: Awake, alert, well-appearing, NAD HENT: Normocephalic, atraumatic. EYES: Normal conjunctiva. Sclera non-icteric. Left eye median gaze palsy. NECK: Supple. No nuchal rigidity. ROM limited secondary to pain. RESPIRATORY: CTAB, no rhonchi, wheezing, crackles CARDIAC: RRR, no MRG ABDOMEN: Soft, NTND, BS+ MSK: No chest wall TTP, no LE edema NEURO: GCS 15, moves all 4s on command. Left eye has a median gaze palsy. Questionable RUE drift. No sensory deficits. SKIN: No rash or jaundice noted. Medical Decision & Procedures ER Provider Diagnostic Interpretation: Radiology results as stated below per my review and radiologist interpretation: CT OF THE HEAD WITHOUT CONTRAST CLINICAL HISTORY: Weakness. Lung cancer. COMPARISON STUDY: MRI of the brain October 05, 2017. TECHNIQUE: Helical axial images of the head were obtained without IV contrast. Automated exposure control was utilized for the study. A dose lowering technique was utilized adhering to the principles of ALARA. FINDINGS: No acute intracranial hemorrhage, midline shift or mass effect is present. Ventricular system is normal for age. The basilar cisterns are patent. There are no extra-axial collections. Diaz-white differentiation is maintained. White matter hypodensities suggest small vessel disease. There are no findings to suggest acute dural sinus thrombosis or acute territorial infarct. There are no significant calvarial abnormalities. IMPRESSION: No acute intracranial findings. Electronically signed by: Efren Cosme M.D. 11/14/2017 11:21 AM Dictated Date/Time: 11/14/2017 11:17 AM NECK ANGIO WITH CONTRAST CLINICAL HISTORY: 87 years-old Male presenting with weakness, headache. TECHNIQUE: Multidetector CT angiography of the neck was performed after the administration of intravenous contrast. 3-D volumetric and/or maximum intensity projection (MIP) images were subsequently reconstructed for review. IV contrast: 92 mL of Optiray 320. A dose lowering technique was used consistent with the principles of ALARA (as low as reasonably achievable). Stenosis measurements were based on NASCET-like criteria. COMPARISON: None. CT DOSE (mGy.cm): The estimated cumulative dose is 1127.75 inclusive of the CTA head. FINDINGS: Change Number Operator topogram: Left subclavian Mediport. [place] in the left humeral head. Trace atherosclerosis of the three-vessel aortic arch. Tortuosity of the cervical vessels likely indicates chronic hypertension. Bilateral common carotid arteries patent. Atherosclerosis without significant narrowing of the carotid bifurcations. The proximal to mid right internal carotid artery demonstrates slight narrowing likely secondary to eccentric noncalcified atherosclerotic plaque. At the site of narrowing the lumen measures 3.7 mm in comparison to the normal distal diameter of 4.5 mm (less than 20% stenosis). Remainder of the right ICA patent. Left ICA patent. Left dominant vertebral artery. Vertebral arteries with patent origins and courses. No convincing evidence of acute dissection, focal vessel occlusion, or hemodynamically significant stenosis. Soft tissues of the neck within normal limits allowing for the phase of contrast. Partially visualized left subclavian Mediport. Lung apices clear. Degenerative changes of the cervical spine. Limited intracranial evaluation within normal limits. IMPRESSION: 1. No evidence of acute dissection, focal vessel occlusion, or hemodynamically significant stenosis in the cervical arteries. 2. Less than 20% stenosis of the proximal to mid right internal carotid artery likely secondary to atherosclerotic plaque. Electronically signed by: Memo Lafleur M.D. 11/14/2017 11:40 AM Dictated Date/Time: 11/14/2017 11:36 AM HEAD CTA HISTORY: Weakness. Headache. TECHNIQUE: Multiaxial CT images of the head were performed after the intravenous administration of contrast to evaluate the major cerebral vessels. Maximum intensity projection images were also obtained. A dose lowering technique was utilized adhering to the principles of ALARA. COMPARISON: Head CT 11/14/2017. FINDINGS: There is no mass, hematoma, midline shift, or acute infarct. Visualized intracranial internal carotid arteries, distal vertebral arteries, and basilar artery are widely patent. There is no significant stenosis, occlusion, or aneurysm seen within the bilateral ACAs, MCAs, or design printer balloon. Incidental note is made of a hypoplastic distal right vertebral artery. The major dural venous sinuses appear patent. IMPRESSION: No significant stenosis, occlusion, or aneurysm within the [place] of [place]. Electronically signed by: Roger Torres M.D. 11/14/2017 11:42 AM Dictated Date/Time: 11/14/2017 11:37 AM CHEST ONE VIEW PORTABLE CLINICAL HISTORY: 87 years-old Male presenting with cancer hx, headache. TECHNIQUE: Portable upright AP view of the chest was obtained. COMPARISON: 09/01/2017. FINDINGS: Left subclavian Mediport terminates at the superior cavoatrial junction. Atherosclerosis and tortuosity of the mildly prominent thoracic aorta. Cardiac silhouette top normal in size. Minimal left basilar opacity. No other focal opacity. No large effusion or pneumothorax. Degenerative changes of the thoracic spine. [place] noted in the left humeral head. Upper abdomen normal. IMPRESSION: 1. Minimal left basilar atelectasis or scarring. No convincing evidence of acute cardiopulmonary disease. 2. The previously noted suspicious mass in the right lung is not well demonstrated on radiograph nor are the multiple solid satellite lesions. These were better demonstrated on prior CT from 08/14/2017. 3. Mediastinal lymphadenopathy better demonstrated on CT. Electronically signed by: Memo Lafleur M.D. 11/14/2017 11:24 AM Dictated Date/Time: 11/14/2017 11:21 AM Laboratory Results 11/14/17 10:00 Red Blood Count 3.39, Mean Corpuscular Volume 91.4, Mean Corpuscular Hemoglobin 31.0, Mean Corpuscular Hemoglobin Concent 33.9, Mean Platelet Volume 10.6, Neutrophils (%) (Auto) 78.1, Lymphocytes (%) (Auto) 7.3, Monocytes (%) (Auto) 12.4, Eosinophils (%) (Auto) 0.2, Basophils (%) (Auto) 0.4, Neutrophils # (Auto ) 10.77, Lymphocytes # (Auto) 1.01, Monocytes # (Auto) 1.71, Eosinophils # (Auto ) 0.03, Basophils # (Auto) 0.05 11/14/17 10:00 11/14/17 15:11 Test 11/14/17 10:00 11/14/17 12:43 11/14/17 14:45 11/14/17 15:11 White Blood Count 13.79 K/uL (4.8-10.8) Red Blood Count 3.39 M/uL (4.7-6.1) Hemoglobin 10.5 g/dL (14.0-18.0) Hematocrit 31.0 % (42-52) Mean Corpuscular Volume 91.4 fL (80-100) Mean Corpuscular Hemoglobin 31.0 pg (25-34) Mean Corpuscular Hemoglobin Concent 33.9 g/dl (32-36) Platelet Count 606 K/uL (130-400) Mean Platelet Volume 10.6 fL (7.4-10.4) Neutrophils (%) (Auto) 78.1 % Lymphocytes (%) (Auto) 7.3 % Monocytes (%) (Auto) 12.4 % Eosinophils (%) (Auto) 0.2 % Basophils (%) (Auto) 0.4 % Neutrophils # (Auto) 10.77 K/uL (1.4-6.5) Lymphocytes # (Auto) 1.01 K/uL (1.2-3.4) Monocytes # (Auto) 1.71 K/uL (0.11-0.59) Eosinophils # (Auto) 0.03 K/uL (0-0.5) Basophils # (Auto) 0.05 K/uL (0-0.2) RDW Standard Deviation 60.3 fL (36.4-46.3) RDW Coefficient of Variation 18.0 % (11.5-14.5) Immature Granulocyte % (Auto) 1.6 % Immature Granulocyte # (Auto) 0.22 K/uL (0.00-0.02) Nucleated RBC Absolute Count (auto) 0.03 K/uL (0-0) Nucleated Red Blood Cells % 0.2 % Erythrocyte Sedimentation Rate 14 mm/hr (0-14) Prothrombin Time 11.5 SECONDS (9.0-12.0) Prothromb Time International Ratio 1.1 (0.9-1.1) Activated Partial Thromboplast Time 28.5 SECONDS (21.0-31.0) Partial Thromboplastin Ratio 1.1 Anion Gap 7.0 mmol/L (3-11) Est Creatinine Clear Calc Drug Dose 42.0 ml/min Estimated GFR () 58.2 Estimated GFR (Non- 50.2 BUN/Creatinine Ratio 16.8 (10-20) Calcium Level 9.4 mg/dl (8.5-10.1) Magnesium Level 1.8 mg/dl (1.8-2.4) Total Bilirubin 0.6 mg/dl (0.2-1) Direct Bilirubin 0.2 mg/dl (0-0.2) Aspartate Amino Transf (AST/SGOT) 18 U/L (15-37) Alanine Aminotransferase (ALT/SGPT) 16 U/L (12-78) Alkaline Phosphatase 61 U/L (45-117) Total Protein 7.7 gm/dl (6.4-8.2) Albumin 4.2 gm/dl (3.4-5.0) Thyroid Stimulating Hormone (TSH) 1.890 uIu/ml (0.300-4.500) Urine Color YELLOW Urine Appearance CLEAR (CLEAR) Urine pH 5.5 (4.5-7.5) Urine Specific [place] 1.045 (1.000-1.030) Urine Protein NEG (NEG) Urine Glucose (UA) NEG (NEG) Urine Ketones NEG (NEG) Urine Occult Blood NEG (NEG) Urine Nitrite NEG (NEG) Urine Bilirubin NEG (NEG) Urine Urobilinogen NEG (NEG) Urine Leukocyte Esterase NEG (NEG) CSF Color COLORLESS CSF Appearance CLEAR CSF WBC 1 /uL (0-5) CSF RBC 0 /uL (0) CSF Xanthrochromic NO XANTHOCHROMIA CSF Cell Count Tube # 3 CSF Chemistry Tube # 1 CSF Glucose 64 mg/dl (40-70) CSF Total Protein 42.4 mg/dl (15.0-45.0) C-Reactive Protein 1.21 mg/dl (0-0.29) Laboratory results reviewed by me Medications Administered Medications (Trade) Dose Ordered Sig/Lisandro Route Start Time Stop Time Status Last Admin Dose Admin Metoclopramide HCl (Reglan Inj) 10 mg NOW STAT IV. 11/14/17 09:48 11/14/17 09:51 DC 11/14/17 10:08 10 MG Diphenhydramine HCl (Benadryl Inj) 12.5 mg NOW STAT IV 11/14/17 09:48 11/14/17 09:51 DC 11/14/17 10:08 12.5 MG Acetaminophen (Tylenol Tab) 650 mg NOW STAT PO 11/14/17 09:48 11/14/17 09:51 DC 11/14/17 10:08 650 MG Lidocaine/ Epinephrine (Xylocaine/Epine 1% Inj) 20 ml STK-MED ONCE .ROUTE 11/14/17 14:33 11/14/17 14:34 DC 11/14/17 14:35 20 ML Acetaminophen (Tylenol Tab) 650 mg Q4H PRN PO 11/14/17 15:00 12/14/17 14:59 11/14/17 15:33 650 MG Procedure Lumbar Puncture Indication: Persistent headache and neck pain Verbal consent was obtained after the risks and benefits were explained, including but not limited to headache, bleeding/clotting, scarring, infection, pain, and bone/joint/nerve damage. At this time, the risks of the procedure are less than the risks of NOT performing the procedure. A time out was taken and the correct patient and site identified. The patient was placed in the sitting position and the back was prepped with betadine and draped in the standard fashion. The L3 intervertebral space was identified, anesthetized locally with 1 % lidocaine without epinephrine, and the spinal needle was inserted through the skin with the bevel parallel to the dural fibers. The needle was carefully advanced into the lumbar cistern and 4 tubes of clear CSF was obtained. The stylet was replaced and the needle was removed. A bandaid was placed and the patient was placed in the supine position. The patient tolerated the procedure well and there were no complications. ECG Indication: other (Stroke-like symptoms) Rate (beats per minute): 69 Rhythm: sinus rhythm Findings: 1st degree AV block, LBBB, other (Wide QRS, t-wave flattening in lead III) Change: Patient's electrocardiogram interpreted by me. ED Course 0933: The patient was evaluated in room B4B. A complete history and physical exam was performed. 1202: Upon reevaluation, the patient is feeling better. 1206: Upon reexamination, the patient was resting. I discussed the test results and treatment plan with him. I discussed the patient's case with Dr. Rachael Eric of [facility]. The patient will be evaluated by him for further management. 1445: I performed a lumbar puncture procedure at this time. Please see the procedure note for more information. Medical Decision The patient is an 87 year old white male with a past medical history of metastatic lung and liver cancer who presents to the ED with a cc of a posterior headache beginning last night. Differential diagnosis: Etiologies such as migraine headache, meningitis, sinusitis, CO exposure, ICH, SAH, infection, tumor, headache, sinus thrombosis, arterial dissection, as well as others were entertained. Patient was seen and evaluated at the bedside. Patient does have a prior history of stage IV lung CA was complaining of some headache with neck pain. Patient denies any recent falls and only takes a baby aspirin. Patient denies any numbness tingling or weakness. Patient did have blood work, EKG, CT brain, CTA of the head and neck. Patient CT brain negative acute for any acute changes. CTA did not show any flow-limiting stenosis, aneurysm, or dissection. His blood work did show some thrombocytosis. Given the patient's neck pain with cancer history even in with his negative imaging I was concerned about a possible thrombosis especially given his left eye median gaze palsy. This did resolve and the patient was feeling improved. I did speak with the hospitalist who agreed to further evaluate and treat the patient. The hospitalist is concerned about some other type of infection or inflammatory process sent LP was performed. The patient tolerated this procedure without, location. The patient was admitted to the medicine service. Medication Reconcilliation Current Medication List: was personally reviewed by me Blood Pressure Screening Patient's blood pressure: Elevated blood pressure Blood pressure disposition: Elevated BP felt to be situational Consults Time Called: 1200 Consulting Physician: Dr. Rachael Eric - [facility] Returned Call: 1206 Discussed the patient's case. The patient will be evaluated for further treatment and disposition. Impression Primary Impression: Stroke-like symptoms Additional Impressions: Headache Thrombocytosis Scribe Attestation The scribe's documentation has been prepared under my direction and personally reviewed by me in its entirety. I confirm that the note above accurately reflects all work, treatment, procedures, and medical decision making performed by me. Departure Information Dispostion Being Evaluated By Hospitalist Referrals Hernesto Jorgensen M.D. (PCP) Patient Instructions My [facility] Problem Qualifiers Additional Impressions: Headache Headache type: unspecified Headache chronicity pattern: acute headache Intractability: not intractable Qualified Codes: R51 - Headache
[2017-11-14] MEDS ORDERED: OPTIRAY 320 IV PRN (10:00)
[2017-11-14 10:19] LABS: BASO % 0.4 %; BASO ABS # 0.05 K/uL (0-0.2); EOS % 0.2 %; EOS ABS # 0.03 K/uL (0-0.5); HEMOGLOBIN 10.5 g/dL (14.0-18.0); IG# 0.22 K/uL (0.00-0.02); LYMPH % 7.3 %; LYMPH ABS # 1.01 K/uL (1.2-3.4); MEAN CELL VOLUME 91.4 fL (80-100); MEAN CORPUSCULAR HGB CONC 33.9 g/dl (32-36); MEAN PLATELET VOLUME 10.6 fL (7.4-10.4); MONO % 12.4 %; MONO ABS # 1.71 K/uL (0.11-0.59); NEUT % 78.1 %; NEUT ABS # 10.77 K/uL (1.4-6.5); NUCLEATED RED BLOOD CELL ABS 0.03 K/uL (0-0); PLATELET COUNT 606 K/uL (130-400); RED CELL DISTRIBUTION WIDTH SD 60.3 fL (36.4-46.3); WHITE BLOOD COUNT 13.79 K/uL (4.8-10.8)
[2017-11-14 10:28] LABS: INR 1.1 (0.9-1.1); PTT PATIENT 28.5 SECONDS (21.0-31.0)
[2017-11-14 10:35] LABS: ALBUMIN 4.2 gm/dl (3.4-5.0); CALCIUM 9.4 mg/dl (8.5-10.1); CREATININE 1.29 mg/dl (0.60-1.40); POTASSIUM 4.2 mmol/L (3.5-5.1)
[2017-11-14 10:46] LABS: TOTAL PROTEIN 7.7 gm/dl (6.4-8.2)
[2017-11-14] MEDS ORDERED: FEXO1TAB49 PO (10:57)
[2017-11-14] MEDS ORDERED: METH500T3 PO (10:57)
--- NOTE | 2017-11-14 11:22 | DIAGNOSTIC IMAGING REPORT ---
CT OF THE HEAD WITHOUT CONTRAST CLINICAL HISTORY: Weakness. Lung cancer. COMPARISON STUDY: MRI of the brain October 05, 2017. TECHNIQUE: Helical axial images of the head were obtained without IV contrast. Automated exposure control was utilized for the study. A dose lowering technique was utilized adhering to the principles of ALARA. FINDINGS: No acute intracranial hemorrhage, midline shift or mass effect is present. Ventricular system is normal for age. The basilar cisterns are patent. There are no extra-axial collections. Diaz-white differentiation is maintained. White matter hypodensities suggest small vessel disease. There are no findings to suggest acute dural sinus thrombosis or acute territorial infarct. There are no significant calvarial abnormalities. IMPRESSION: No acute intracranial findings. Electronically signed by: Efren Cosme M.D. 11/14/2017 11:21 AM Dictated Date/Time: 11/14/2017 11:17 AM
--- NOTE | 2017-11-14 11:25 | DIAGNOSTIC IMAGING REPORT ---
CHEST ONE VIEW PORTABLE CLINICAL HISTORY: 87 years-old Male presenting with cancer hx, headache. TECHNIQUE: Portable upright AP view of the chest was obtained. COMPARISON: 09/01/2017. FINDINGS: Left subclavian Mediport terminates at the superior cavoatrial junction. Atherosclerosis and tortuosity of the mildly prominent thoracic aorta. Cardiac silhouette top normal in size. Minimal left basilar opacity. No other focal opacity. No large effusion or pneumothorax. Degenerative changes of the thoracic spine. [place] noted in the left humeral head. Upper abdomen normal. IMPRESSION: 1. Minimal left basilar atelectasis or scarring. No convincing evidence of acute cardiopulmonary disease. 2. The previously noted suspicious mass in the right lung is not well demonstrated on radiograph nor are the multiple solid satellite lesions. These were better demonstrated on prior CT from 08/14/2017. 3. Mediastinal lymphadenopathy better demonstrated on CT. Electronically signed by: Memo Lafleur M.D. 11/14/2017 11:24 AM Dictated Date/Time: 11/14/2017 11:21 AM
--- NOTE | 2017-11-14 11:42 | DIAGNOSTIC IMAGING REPORT ---
NECK ANGIO WITH CONTRAST CLINICAL HISTORY: 87 years-old Male presenting with weakness, headache. TECHNIQUE: Multidetector CT angiography of the neck was performed after the administration of intravenous contrast. 3-D volumetric and/or maximum intensity projection (MIP) images were subsequently reconstructed for review. IV contrast: 92 mL of Optiray 320. A dose lowering technique was used consistent with the principles of ALARA (as low as reasonably achievable). Stenosis measurements were based on NASCET-like criteria. COMPARISON: None. CT DOSE (mGy.cm): The estimated cumulative dose is 1127.75 inclusive of the CTA head. FINDINGS: Convenience Store Clerk topogram: Left subclavian Mediport. [place] in the left humeral head. Trace atherosclerosis of the three-vessel aortic arch. Tortuosity of the cervical vessels likely indicates chronic hypertension. Bilateral common carotid arteries patent. Atherosclerosis without significant narrowing of the carotid bifurcations. The proximal to mid right internal carotid artery demonstrates slight narrowing likely secondary to eccentric noncalcified atherosclerotic plaque. At the site of narrowing the lumen measures 3.7 mm in comparison to the normal distal diameter of 4.5 mm (less than 20% stenosis). Remainder of the right ICA patent. Left ICA patent. Left dominant vertebral artery. Vertebral arteries with patent origins and courses. No convincing evidence of acute dissection, focal vessel occlusion, or hemodynamically significant stenosis. Soft tissues of the neck within normal limits allowing for the phase of contrast. Partially visualized left subclavian Mediport. Lung apices clear. Degenerative changes of the cervical spine. Limited intracranial evaluation within normal limits. IMPRESSION: 1. No evidence of acute dissection, focal vessel occlusion, or hemodynamically significant stenosis in the cervical arteries. 2. Less than 20% stenosis of the proximal to mid right internal carotid artery likely secondary to atherosclerotic plaque. Electronically signed by: Memo Lafleur M.D. 11/14/2017 11:40 AM Dictated Date/Time: 11/14/2017 11:36 AM
--- NOTE | 2017-11-14 11:43 | DIAGNOSTIC IMAGING REPORT ---
HEAD CTA HISTORY: Weakness. Headache. TECHNIQUE: Multiaxial CT images of the head were performed after the intravenous administration of contrast to evaluate the major cerebral vessels. Maximum intensity projection images were also obtained. A dose lowering technique was utilized adhering to the principles of ALARA. COMPARISON: Head CT 11/14/2017. FINDINGS: There is no mass, hematoma, midline shift, or acute infarct. Visualized intracranial internal carotid arteries, distal vertebral arteries, and basilar artery are widely patent. There is no significant stenosis, occlusion, or aneurysm seen within the bilateral ACAs, MCAs, or corporate lawyer. Incidental note is made of a hypoplastic distal right vertebral artery. The major dural venous sinuses appear patent. IMPRESSION: No significant stenosis, occlusion, or aneurysm within the [place] of [place]. Electronically signed by: Roger Torres M.D. 11/14/2017 11:42 AM Dictated Date/Time: 11/14/2017 11:37 AM
[2017-11-14 13:03] VITALS: O2SAT 97; Ht 175.3 cm; Wt 67.9 kg
[2017-11-14] MEDS ORDERED: LIDOCAINE/EPINEPHRINE 1% 20 ML VIAL ONE (14:33)
[2017-11-14] MEDS ORDERED: POLYETHYLENE (MIRALAX) 17 GM PACK PO PRN (15:00)
[2017-11-14] MEDS ORDERED: MAGNESIUM HYDROXIDE SUSP 30 ML UDC PO PRN (15:00)
[2017-11-14] MEDS ORDERED: ONDANSETRON INJ 2 MG/ML 2 ML VIAL IV PRN (15:00)
[2017-11-14] MEDS ORDERED: ZOLPIDEM TARTRATE 5 MG TAB PO PRN ×2 (15:00)
[2017-11-14] MEDS ORDERED: ALUMINUM/MAGNESIUM/SIMETH (MAALOX MAX) 30 ML UDC PO PRN (15:00)
--- NOTE | 2017-11-14 15:15 | History and Physical ---
History & Physical Date & Time of Service: Nov 14, 2017 at 15:01 Chief Complaint: Extreme Headache, Lung Cancer Primary Care Physician: Hernesto Jorgensen M.D. 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 Patient woke up from sleep yesterday with severe neck stiffness and severe occipital headache. Denies any dizziness or vertigo. Denies any focal weakness or tingling or numbness. Patient has been having intermittent blurring of vision for long time. He has been examined by metal fabricator helper if it action was taken. Denies any nausea/vomiting or double vision at this point. Currently his vision seems to be okay. Headache was 10/10 in severity no other associated neurologic symptoms. Next stiffness is severe and headache can be elicited by head movement. He takes baby aspirin, no other medications Remote smoker, quit smoking 38 years ago Other from what mentioned in history of present illness, he has hypertension, BPH and history of cardiac arrhythmia status post ablation. Family history of cancer in his father's eye Past Medical/Surgical History Medical Problems: (1) UTI (urinary tract infection) Status: Chronic (2) Vitiligo Status: Chronic Surgical Problems: (1) H/O prior ablation treatment Status: Resolved (2) H/O prostatectomy Status: Resolved Family History Cancer Hypertension No significant family history Stroke Social History Smoking Status: Former Smoker Marital Status: Occupational Status: retired Multi-Drug Resistant Organisms History of MDRO: No Allergies Coded Allergies: Sulfa Antibiotics (Verified Adverse Reaction, Unknown, JOINT PAIN, 11/14/17 ) Home Medications Scheduled Allopurinol (Allopurinol), 300 MG PO DAILY Aspirin (Aspirin), 81 MG PO QAM Fexofenadine Hcl (Nirali Allergy), 180 MG PO DAILY Finasteride (Proscar), 5 MG PO QAM Flecainide (Tambocor), 100 MG PO BID Metoprolol Tartrate (Lopressor), 25 MG PO BID Pantoprazole (Pantoprazole Sodium), 40 MG PO QAM Triamcinolone Acet (Triamcinolone Acetonide), 1 APPLN TOP BID [Boost], 1 CAN PO BID Scheduled PRN Acetaminophen (Sb Non-Aspirin Extra Stre), 500 MG PO Q4H PRN for Pain Diphenhydramine Hcl (Benadryl Allergy), 1 TAB PO QAM PRN for ALLERGIES Methylcellulose (Laxative) (Citrucel), 500 MG PO for Constipation Review of Systems Constitutional: + weakness, + fatigue, No fever, No chills, No sweats, No weight loss, No problem reported Eyes: + worsening of vision, No eye pain, No redness, No discharge, No diplopia , No problem reported ENT: No hearing loss, No unusual epistaxis, No nasal symptoms, No sore throat, No tinnitus, No dental problems, No trouble swallowing, No problem reported Respiratory: No cough, No sputum, No wheezing, No shortness of breath, No dyspnea on exertion, No dyspnea at rest, No hemoptysis, No problem reported Cardiovascular: No chest pain, No orthopnea, No PND, No edema, No claudication , No palpitations, No problem reported Abdomen: No pain, No nausea, No vomiting, No diarrhea, No constipation, No GI bleeding, No problem reported Musculoskeletal: No joint pain, No muscle pain, No swelling, No calf pain, No problem reported Genitourinary - Male: No hematuria, No dysuria, No urinary frequency, No urinary urgency, No urinary hesitancy, No urinary retention, No urinary incontinence, No penile discharge, No lesions, No impotence, No problem reported Neurologic: + problem reported (severe headache/neck stiffness), No memory loss , No paralysis, No weakness, No numbness/tingling, No vertigo, No balance problems Psychiatric: No depression symptoms, No anhedonism, No anxiety, No insomnia, No substance abuse, No problem reported Hematologic / Lymphatic: No abnormal bleeding/bruising, No clotting problems, No swollen lymph nodes, No night sweats, No problem reported Integumentary: No rash, No itch, No new/changing skin lesions, No color change , No bleeding, No problem reported Allergic / Immunologic: No environmental allergies, No seasonal allergies, No pet sensitivities, No food allergies, No hives, No frequent infections, No poor healing, No prolonged convalescence, No problem reported Physical Exam Vital Signs Date Time Temp Pulse Resp B/P (MAP) Pulse Ox O2 Delivery O2 Flow Rate FiO2 11/14/17 14:14 64 18 165/92 97 Room Air 11/14/17 13:03 97 Room Air 11/14/17 13:02 64 20 165/92 97 Room Air 11/14/17 12:41 67 11/14/17 12:15 59 18 122/69 94 Room Air 11/14/17 10:21 66 11/14/17 10:17 94 Room Air 11/14/17 10:17 67 18 175/89 98 Room Air 11/14/17 08:58 36.8 59 18 191/97 98 Room Air General Appearance: WD/WN, no apparent distress Head: normocephalic, atraumatic Eyes: normal inspection, EOMI ENT: normal ENT inspection, hearing grossly normal Neck: + pertinent finding (severe neck stiffness, no swelling) Respiratory/Chest: chest non-tender, lungs clear, normal breath sounds, no respiratory distress, no accessory muscle use Cardiovascular: regular rate, rhythm, no edema, no gallop, no JVD, no murmur, normal peripheral pulses Abdomen/GI: normal bowel sounds, non tender, soft, no organomegaly, no pulsatile mass Back: normal inspection, no CVA tenderness, no muscle spasm Extremities/Musculoskelatal: normal inspection, no calf tenderness, normal capillary refill, no pedal edema, normal range of motion, + pertinent finding ( severe spasm in his neck muscles) Neurologic/Psych: time study observer II-XII nml as tested, no motor/sensory deficits, alert, normal mood/affect, normal reflexes, oriented x 3 Skin: normal color, warm/dry, no rash Lymphatic: no adenopathy Diagnostics Laboratory Results Results Past 24 Hours Test 11/14/17 10:00 11/14/17 12:43 11/14/17 13:17 11/14/17 14:45 Range/Units White Blood Count 13.79 4.8-10.8 K/uL Red Blood Count 3.39 4.7-6.1 M/uL Hemoglobin 10.5 14.0-18.0 g/dL Hematocrit 31.0 42-52 % Mean Corpuscular Volume 91.4 80-100 fL Mean Corpuscular Hemoglobin 31.0 25-34 pg Mean Corpuscular Hemoglobin Concent 33.9 32-36 g/dl Platelet Count 606 130-400 K/uL Mean Platelet Volume 10.6 7.4-10.4 fL Neutrophils (%) (Auto) 78.1 % Lymphocytes (%) (Auto) 7.3 % Monocytes (%) (Auto) 12.4 % Eosinophils (%) (Auto) 0.2 % Basophils (%) (Auto) 0.4 % Neutrophils # (Auto) 10.77 1.4-6.5 K/uL Lymphocytes # (Auto) 1.01 1.2-3.4 K/uL Monocytes # (Auto) 1.71 0.11-0.59 K/uL Eosinophils # (Auto) 0.03 0-0.5 K/uL Basophils # (Auto) 0.05 0-0.2 K/uL RDW Standard Deviation 60.3 36.4-46.3 fL RDW Coefficient of Variation 18.0 11.5-14.5 % Immature Granulocyte % (Auto) 1.6 % Immature Granulocyte # (Auto) 0.22 0.00-0.02 K/uL Nucleated RBC Absolute Count (auto) 0.03 0-0 K/uL Nucleated Red Blood Cells % 0.2 % Prothrombin Time 11.5 9.0-12.0 SECONDS Prothromb Time International Ratio 1.1 0.9-1.1 Activated Partial Thromboplast Time 28.5 21.0-31.0 SECONDS Partial Thromboplastin Ratio 1.1 Sodium Level 135 136-145 mmol/L Potassium Level 4.2 3.5-5.1 mmol/L Chloride Level 100 98-107 mmol/L Carbon Dioxide Level 28 21-32 mmol/L Anion Gap 7.0 3-11 mmol/L Blood Urea Nitrogen 22 7-18 mg/dl Creatinine 1.29 0.60-1.40 mg/dl Est Creatinine Clear Calc Drug Dose 42.0 ml/min Estimated GFR () 58.2 Estimated GFR (Non- 50.2 BUN/Creatinine Ratio 16.8 10-20 Random Glucose 123 70-99 mg/dl Calcium Level 9.4 8.5-10.1 mg/dl Magnesium Level 1.8 1.8-2.4 mg/dl Total Bilirubin 0.6 0.2-1 mg/dl Direct Bilirubin 0.2 0-0.2 mg/dl Aspartate Amino Transf (AST/SGOT) 18 15-37 U/L Alanine Aminotransferase (ALT/SGPT) 16 12-78 U/L Alkaline Phosphatase 61 45-117 U/L Total Protein 7.7 6.4-8.2 gm/dl Albumin 4.2 3.4-5.0 gm/dl Thyroid Stimulating Hormone (TSH) 1.890 0.300-4.500 uIu/ml Urine Color YELLOW Urine Appearance CLEAR CLEAR Urine pH 5.5 4.5-7.5 Urine Specific [place] 1.045 1.000-1.030 Urine Protein NEG NEG Urine Glucose (UA) NEG NEG Urine Ketones NEG NEG Urine Occult Blood NEG NEG Urine Nitrite NEG NEG Urine Bilirubin NEG NEG Urine Urobilinogen NEG NEG Urine Leukocyte Esterase NEG NEG Microbiology Results 11/14/17 Fungal Culture, Received Pending 11/14/17 Gram Stain, Received Pending 11/14/17 CSF Culture, Received Pending 11/14/17 Urine Culture, Received Pending Impression Assessment and Plan 87-year-old man with past medical history of hypertension, BPH and history of cardiac arrhythmia status post ablation. 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, currently on chemotherapy presented to the hospital on 11/14/2017 with severe neck stiffness/headache Assessment Severe neck stiffness/headache/intermittent blurring of vision and photophobia Recently diagnosed metastatic small cell lung cancer currently on chemotherapy Myeloproliferative disorder BPH Hypertension/essential History of cardiac arrhythmia status post ablation, unspecified type Plan Giving his history of neck stiffness/headache/photophobia pronounced ER physician to obtain lumbar puncture We'll send CSF fluid for cytology/cell count, protein, glucose, bacterial culture although I doubt he has bacterial meningitis. We'll also send CSF for HSV/CMP/VZV/WN/enteroviruses CTA head and neck was normal CT head was normal Will obtain MRI head with and without contrast to rule out metastases/ demyelination/also if he has underlying meningitis may be gadolinium can cause some meningeal enhancement. Initiate muscle relaxant/Flexeril 2 days 5 mg twice a day Benadryl/Pepcid Tylenol Gentle IV fluid hydration Avoid steroids due to active cancer If renal function is stable but in no relief from his neck stiffness and pain and no underlying pathology found might consider nonsteroidal anti-inflammatory small dose with proper hydration and renal function follow-up Heparin for DVT prophylaxis As per discussion with patient, patient stated that he wants to be full code including intubation and cardiac resuscitation Advanced Directives Existing Living Will: Yes Existing Power of Maintenance Helper Utility Engineer: Yes VTE Prophylaxis VTE Risk Assessment Done? Y/N: Yes Risk Level: Moderate
[2017-11-14 15:23] LABS: CSF TOTAL PROTEIN 42.4 mg/dl (15.0-45.0)
[2017-11-14] MEDS: ACETAMINOPHEN 325 MG TAB PO PRN ×2 (15:33→21:28)
[2017-11-14] MEDS ORDERED: OXYCODONE/ACETAMINOPHEN 5-325 TAB PO PRN (16:30)
[2017-11-14] MEDS ORDERED: OXYCODONE/ACETAMINOPHEN 5-325 TAB ONE (16:39)
[2017-11-14 19:24] VITALS: BP 160/77; PULSE 57; TEMP 36.4; O2SAT 94
[2017-11-14] MEDS ORDERED: SODIUM CHLORIDE 0.9% 1000ML 1,000 ML IV SCH (19:30)
[2017-11-14] MEDS: CYCLOBENZAPRINE HCL 5 MG TAB PO SCH (20:03)
[2017-11-14 20:05] VITALS: O2SAT 94
[2017-11-14] MEDS ORDERED: GADAVIST IV PRN (22:45)
--- NOTE | 2017-11-14 23:26 | DIAGNOSTIC IMAGING REPORT ---
BRAIN COMBO HISTORY: 87 years-old Male headache / Hx of cancer lung w liver Mets acute headache history of lung cancer patient reports recent lumbar puncture today. COMPARISON: CTA had neck of same day, MRI brain 10/05/2017 and 08/15/2017 TECHNIQUE: Multiplanar multisequence MRI of the brain was obtained both with and without the use of 7 mL Gadavist FINDINGS: The large [id number] agile business analyst localizer images demonstrate no gross abnormality. There is no restricted diffusion to suggest acute infarction. The diffusion-weighted images however are mildly motion degraded. The midline structures including the corpus callosum, brainstem, optic chiasm, infundibulum, pituitary and pineal glands are unremarkable the sagittal T1 series. There is no cerebellar tonsillar herniation. Degenerative changes are seen within the imaged cervical spine. No acute intracranial hemorrhage, midline shift or hydrocephalus. Multifocal scattered areas of T2/FLAIR prolongation are again seen within the subcortical, deep and periventricular white matter of the cerebral hemispheres bilaterally suggesting chronic microvascular ischemic changes. The major flow voids at the level of the skull base appear patent. Mastoid air cells are clear. Orbits appear unremarkable and symmetric with evidence of prior cataract repair. Paranasal sinuses are clear. 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 Subtle ill-defined area of enhancement within the left frontal lobe operculum is again seen on image 11 series 10 measuring approximately 4 mm which is unchanged. Punctate focus of enhancement within the right temporal lobe image 9 series 9 which was previously discussed is favored to reflect normal cerebral vascularity. No new or additional areas of pathologic enhancement identified. IMPRESSION: 1. Unchanged subtle 4 mm area of ill-defined enhancement involving the left frontal lobe operculum appears unchanged from comparison. 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 No new enhancing lesions are identified. 2. No acute intracranial abnormality identified. No evidence of acute infarction. 3. Chronic microvascular ischemic changes. The above report was generated using voice recognition software. It may contain grammatical, syntax or spelling errors. Electronically signed by: Nasir Dalal M.D. 11/14/2017 11:24 PM Dictated Date/Time: 11/14/2017 11:11 PM
[2017-11-15] VITALS (7 sets, daily range): BP systolic 99–128; BP diastolic 65–76; PULSE 68–94; TEMP 36.4–36.7; O2SAT 93–96
[2017-11-15 05:58] LABS: BASO % 0.2 %; BASO ABS # 0.02 K/uL (0-0.2); EOS % 0.1 %; EOS ABS # 0.01 K/uL (0-0.5); HEMATOCRIT 24.9 % (42-52); HEMOGLOBIN 8.6 g/dL (14.0-18.0); IG# 0.09 K/uL (0.00-0.02); LYMPH % 3.7 %; MEAN CELL VOLUME 91.9 fL (80-100); MEAN CORPUSCULAR HEMOGLOBIN 31.7 pg (25-34); MEAN CORPUSCULAR HGB CONC 34.5 g/dl (32-36); MEAN PLATELET VOLUME 10.8 fL (7.4-10.4); MONO % 19.5 %; MONO ABS # 2.12 K/uL (0.11-0.59); NEUT % 75.7 %; NEUT ABS # 8.25 K/uL (1.4-6.5); PLATELET COUNT 423 K/uL (130-400); RED CELL DISTRIBUTION WIDTH CV 18.1 % (11.5-14.5); RED CELL DISTRIBUTION WIDTH SD 60.4 fL (36.4-46.3); WHITE BLOOD COUNT 10.89 K/uL (4.8-10.8)
[2017-11-15 06:29] LABS: ALBUMIN 3.4 gm/dl (3.4-5.0); CALCIUM 8.8 mg/dl (8.5-10.1); CREATININE 1.19 mg/dl (0.60-1.40)
[2017-11-15 06:32] LABS: TOTAL PROTEIN 6.6 gm/dl (6.4-8.2)
[2017-11-15] MEDS: ACETAMINOPHEN 325 MG TAB PO PRN ×2 (07:47→15:11)
[2017-11-15] MEDS: FAMOTIDINE 20 MG TAB PO SCH (07:47)
[2017-11-15] MEDS: CYCLOBENZAPRINE HCL 5 MG TAB PO SCH ×2 (07:47→21:10)
--- NOTE | 2017-11-15 08:55 | Neurology Consultation ---
Neurology Consultation Date of Consultation: Nov 15, 2017. Attending Physician: Neris Bradford MD Primary Care Physician: Hernesto Jorgensen M.D. Reason for Consultation: Consultation for headache History of Present Illness Source: patient, hospital records This is a 87-year-old male who presents with a chief complaint of severe neck pain. He reports that the day before presentation he did wake up with a sore neck. He treated it conservatively at home but when he woke up the next day he had severe neck pain. He had limitation of neck movement. Trying to rotate head side to side caused severe pain in the back and side of his neck. Also he was getting severe sharp pain that would radiate up his occiput bilaterally and around the base of the skull. He denies any headache history. Denies any history of migraines. Reports that he felt a throbbing type sensation at the base of the skull. He never had anything like this before. He denied any new weakness or numbness. No shooting pain going down his arm. No change in mental status. Patient does report that for the last couple months since starting chemotherapy he has had blurry vision and light sensitivity. He reports that he seen the hollow core door frame assembler several times with an unremarkable examination. Patient reports that after he got a muscle relaxer and Tylenol last night his neck pain seemed to significantly improved from a 10/10 to a 3/10. Reviewing his med list that also appears the patient received Percocet. CTA of the head and neck was reviewed and unremarkable. MRI of the brain report and images were reviewed by myself. Patient also recently had an MRI of his brain that was compared to in October 2017. The patient has unchanged 4 mm ill- defined enhancement in the left frontal lobe and unchanged leptomeningeal enhancement of the left superior cerebellum. No acute findings on most recent MRI. Patient did receive a lumbar puncture in the emergency room which so far has been unremarkable. Cell count does not appear to be infectious at this time. Viral studies and Lyme are pending. Basic labs reviewed. WBC noted to be 10-13. ESR within normal limits. CRP nonspecifically elevated at 1.2. Past Medical/Surgical History Medical Problems: (1) Diarrhea Status: Acute (2) Headache Status: Acute (3) Stroke-like symptoms Status: Acute (4) Vasovagal near syncope Status: Acute Myeloproliferative disorder Recent diagnosis of metastatic small cell lung cancer on chemotherapy Hypertension BPH History of cardiac arrhythmia status post ablation Family History History of cancer and hypertension Social History Patient is normally independent in his activities of daily living. Remote tobacco use. Marital Status: Occupation Status: retired Allergies Coded Allergies: Sulfa Antibiotics (Verified Adverse Reaction, Unknown, JOINT PAIN, 11/14/17 ) Current Inpatient Medications Current Inpatient Medications Medications (Trade) Dose Ordered Sig/Lisandro Route Start Time Stop Time Status Last Admin Dose Admin Ioversol (Optiray 320) 100 ml UD PRN IV 11/14/17 10:00 11/18/17 09:59 Acetaminophen (Tylenol Tab) 650 mg Q4H PRN PO 11/14/17 15:00 12/14/17 14:59 11/15/17 07:47 650 MG Al Hydrox/Mg Hydrox/Simethicone (Maalox Max Susp) 15 ml Q4H PRN PO 11/14/17 15:00 12/14/17 14:59 Magnesium Hydroxide (Milk Of Magnesia Susp) 30 ml Q6H PRN PO 11/14/17 15:00 12/14/17 14:59 Polyethylene (Miralax Powder Packet) 17 gm DAILY PRN PO 11/14/17 15:00 12/14/17 14:59 Ondansetron HCl (Zofran Inj) 4 mg Q6H PRN IV 11/14/17 15:00 12/14/17 14:59 Zolpidem Tartrate (Ambien Tab) 5 mg HSZ PRN PO 11/14/17 15:00 12/14/17 14:59 Famotidine (Pepcid Tab) 20 mg QAM PO 11/15/17 08:00 12/15/17 08:59 11/15/17 07:47 20 MG Diphenhydramine HCl (Benadryl Syrup) 25 mg Q8H PRN PO 11/14/17 15:00 12/14/17 14:59 Cyclobenzaprine HCl (Flexeril Tab) 5 mg BID PO 11/14/17 20:00 11/16/17 20:59 11/15/17 07:47 5 MG Sodium Chloride 1,000 ml @ 35 mls/hr Q24H IV 11/14/17 19:30 3/14/18 19:29 11/14/17 20:04 35 MLS/HR Oxycodone/ Acetaminophen (Percocet 5-325mg Tab) 1 tab Q8H PRN PO 11/14/17 16:30 11/28/17 16:29 11/15/17 03:54 1 TAB Gadobutrol (Gadavist) 7 mmol UD PRN IV 11/14/17 22:45 11/18/17 22:44 Review of Systems Complete review of systems otherwise negative except for the above noted in history of present illness Physical Exam Vital Signs (Past 24 Hrs): Date Time Temp Pulse Resp B/P (MAP) Pulse Ox O2 Delivery O2 Flow Rate FiO2 11/15/17 04:00 36.6 70 20 120/72 (88) 94 Room Air 11/15/17 01:15 36.4 68 18 116/71 (86) 95 Room Air 11/15/17 00:05 Room Air 11/14/17 20:05 94 Room Air 11/14/17 19:24 36.4 57 20 160/77 (104) 94 Room Air 11/14/17 18:50 57 18 100/56 95 Room Air 11/14/17 16:42 66 18 116/75 96 Room Air 11/14/17 16:42 65 11/14/17 14:14 64 18 165/92 97 Room Air 11/14/17 13:03 97 Room Air 11/14/17 13:02 64 20 165/92 97 Room Air 11/14/17 12:41 67 11/14/17 12:15 59 18 122/69 94 Room Air 11/14/17 10:21 66 11/14/17 10:17 94 Room Air 11/14/17 10:17 67 18 175/89 98 Room Air 11/14/17 08:58 36.8 59 18 191/97 98 Room Air Gen.: Patient is alert and oriented in no acute distress, sitting in chair eating Heart: Regular rate and rhythm Extremities: No gross deformities or rashes noted Neurological examination: Mental status: Patient is alert and oriented to person place and time. Able to give his own history. Attention concentration normal for the situation. Remote and recent memory intact Speech is fluent without any dysarthria or aphasia noted Cranial nerves: Funduscopic examination was difficult to visualize. Pupils equally round and reactive to light. Extraocular muscles intact without nystagmus. No facial asymmetry noted. Facial sensation intact. Tongue midline. Good palatal elevation. Good shoulder shrug bilaterally. Hearing grossly intact voice. Strength: 5/5 both proximal and distal in all extremities .Tone is normal. Sensation: Grossly intact to light touch in all extremities Deep tendon reflexes: +1 in bilateral biceps and patellar. Toes are downgoing to plantar stimulation bilaterally Coordination: Patient has good finger to nose without dysmetria. Station within the chair is normal. Laboratory Results Past 24 Hours: 11/15/17 05:30 Red Blood Count 2.71, Mean Corpuscular Volume 91.9, Mean Corpuscular Hemoglobin 31.7, Mean Corpuscular Hemoglobin Concent 34.5, Mean Platelet Volume 10.8, Neutrophils (%) (Auto) 75.7, Lymphocytes (%) (Auto) 3.7, Monocytes (%) (Auto) 19.5, Eosinophils (%) (Auto) 0.1, Basophils (%) (Auto) 0.2, Neutrophils # (Auto ) 8.25, Lymphocytes # (Auto) 0.40, Monocytes # (Auto) 2.12, Eosinophils # (Auto ) 0.01, Basophils # (Auto) 0.02 11/15/17 05:30 Test 11/14/17 10:00 11/14/17 12:43 11/14/17 14:45 11/14/17 15:11 Nucleated RBC Absolute Count (auto) 0.03 K/uL (0-0) Nucleated Red Blood Cells % 0.2 % Erythrocyte Sedimentation Rate 14 mm/hr (0-14) Prothrombin Time 11.5 SECONDS (9.0-12.0) Prothromb Time International Ratio 1.1 (0.9-1.1) Activated Partial Thromboplast Time 28.5 SECONDS (21.0-31.0) Partial Thromboplastin Ratio 1.1 Direct Bilirubin 0.2 mg/dl (0-0.2) Thyroid Stimulating Hormone (TSH) 1.890 uIu/ml (0.300-4.500) Urine Color YELLOW Urine Appearance CLEAR (CLEAR) Urine pH 5.5 (4.5-7.5) Urine Specific [place] 1.045 (1.000-1.030) Urine Protein NEG (NEG) Urine Glucose (UA) NEG (NEG) Urine Ketones NEG (NEG) Urine Occult Blood NEG (NEG) Urine Nitrite NEG (NEG) Urine Bilirubin NEG (NEG) Urine Urobilinogen NEG (NEG) Urine Leukocyte Esterase NEG (NEG) CSF Color COLORLESS CSF Appearance CLEAR CSF WBC 1 /uL (0-5) CSF RBC 0 /uL (0) CSF Xanthrochromic NO XANTHOCHROMIA CSF Cell Count Tube # 3 CSF Chemistry Tube # 1 CSF Glucose 64 mg/dl (40-70) CSF Total Protein 42.4 mg/dl (15.0-45.0) C-Reactive Protein 1.21 mg/dl (0-0.29) Test 11/15/17 05:30 White Blood Count 10.89 K/uL (4.8-10.8) Red Blood Count 2.71 M/uL (4.7-6.1) Hemoglobin 8.6 g/dL (14.0-18.0) Hematocrit 24.9 % (42-52) Mean Corpuscular Volume 91.9 fL (80-100) Mean Corpuscular Hemoglobin 31.7 pg (25-34) Mean Corpuscular Hemoglobin Concent 34.5 g/dl (32-36) Platelet Count 423 K/uL (130-400) Mean Platelet Volume 10.8 fL (7.4-10.4) Neutrophils (%) (Auto) 75.7 % Lymphocytes (%) (Auto) 3.7 % Monocytes (%) (Auto) 19.5 % Eosinophils (%) (Auto) 0.1 % Basophils (%) (Auto) 0.2 % Neutrophils # (Auto) 8.25 K/uL (1.4-6.5) Lymphocytes # (Auto) 0.40 K/uL (1.2-3.4) Monocytes # (Auto) 2.12 K/uL (0.11-0.59) Eosinophils # (Auto) 0.01 K/uL (0-0.5) Basophils # (Auto) 0.02 K/uL (0-0.2) RDW Standard Deviation 60.4 fL (36.4-46.3) RDW Coefficient of Variation 18.1 % (11.5-14.5) Immature Granulocyte % (Auto) 0.8 % Immature Granulocyte # (Auto) 0.09 K/uL (0.00-0.02) Giant Platelets 1+ Tear Drop Cells 1+ Ovalocytes 1+ Anion Gap 7.0 mmol/L (3-11) Est Creatinine Clear Calc Drug Dose 45.0 ml/min Estimated GFR () 64.2 Estimated GFR (Non- 55.4 BUN/Creatinine Ratio 16.7 (10-20) Calcium Level 8.8 mg/dl (8.5-10.1) Magnesium Level 1.8 mg/dl (1.8-2.4) Total Bilirubin 0.6 mg/dl (0.2-1) Aspartate Amino Transf (AST/SGOT) 15 U/L (15-37) Alanine Aminotransferase (ALT/SGPT) 13 U/L (12-78) Alkaline Phosphatase 48 U/L (45-117) Total Protein 6.6 gm/dl (6.4-8.2) Albumin 3.4 gm/dl (3.4-5.0) Globulin 3.2 gm/dl (2.5-4.0) Albumin/Globulin Ratio 1.1 (0.9-2) Imaging As noted above in history of present illness Impression This is a 87-year-old male who presents with chief complaint of acute severe neck pain that sounds mostly muscular in quality. Appears to have severe muscle stiffness/spasm mostly contributing to symptoms. Significantly improved with muscle relaxer per patient. Sharp occipital headaches appear to be secondary to neck pain. Plan Agree with treatment and workup to date. If patient continues to have severe neck pain unresponsive to conservative treatment, could consider MRI of the C-spine to rule out acute structural lesions causing neck pain. General pain management of neck per hospitalist team. If Flexeril does not appear to be completely effective, could consider another muscle relaxer such as methocarbamol or baclofen. Could also consider physical therapy. No additional neurological recommendations at this time. If there is any questions or concerns, feel free to call/page me.
[2017-11-15] MEDS ORDERED: SENNA 8.6 MG TAB PO ONE (11:46)
[2017-11-15] MEDS ORDERED: TRAMADOL HCL 50 MG TAB ONE (11:55)
[2017-11-15] MEDS: DICLOFENAC SOD 1% GEL 100 GM TUBE EXT SCH ×2 (13:02→18:00)
--- NOTE | 2017-11-15 14:42 | DIAGNOSTIC IMAGING REPORT ---
CERVICAL SPINE W/O CT DOSE: 452.04 mGycm HISTORY: Pain Bony [place] H/O Small Cell Lung CA? Neck Stiffness TECHNIQUE: Multiaxial CT images of the cervical spine were performed and reformatted in the sagittal and coronal plane without the use of contrast. A dose lowering technique was utilized adhering to the principles of ALARA. COMPARISON: None. FINDINGS: Severe degenerative disc changes throughout. Bony mineralization generally somewhat diminished. No evidence for compression deformity. Nonspecific cystic 7 mm focus right lateral aspect C7 vertebral body versus potential lytic deposit. No evidence for abnormal soft tissue erosive change. No bony narrowing of the spinal canal. Moderate degenerative change of the lateral facets throughout. IMPRESSION: 1. 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 2. General bony demineralization. 3. 7 mm lytic focus versus bone cyst right lateral aspect T7 vertebral body. 4. Bone scan may be helpful as follow-up The above report was generated using voice recognition software. It may contain grammatical, syntax or spelling errors. Electronically signed by: Alvaro Lopez M.D. 11/15/2017 2:41 PM Dictated Date/Time: 11/15/2017 2:36 PM
--- NOTE | 2017-11-15 15:35 | Hospitalist Progress Note ---
Hospitalist Progress Note Date of Service Nov 15, 2017. (Ena Hunt, PARondaC) Subjective Pt evaluation today including: conversation w/ patient, conversation w/ family , physical exam, chart review, lab review, review of studies, review of inpatient medication list Patient seen and evaluated. Reporting neck stiffness is slightly improved but not resolved. Also noted limited jaw motion x 2 months. Family reporting near falls at home and balance issues. MRI showing cerebellar lesions that is likely the problem. They are also noting more flat effect and less talkative and generally weak. This is all likely due to mets given involvement in frontal lobe. Appears to be tolerating chemotherapy. Reporting resolution of headache but continues to have shooting pains when moving neck Constitutional: No fever, No chills Eyes: + worsening of vision (chronic blurred vision) ENT: No sore throat, No trouble swallowing Respiratory: No cough, No shortness of breath Cardiovascular: No chest pain Abdomen: No pain, No nausea, No vomiting, No diarrhea, No constipation Musculoskeletal: + joint pain (neck pain), No calf pain Heme: No abnormal bleeding/bruising Skin: No rash (Ena Hunt, QIC) Medications Current Inpatient Medications Medications (Trade) Dose Ordered Sig/Lisandro Route Start Time Stop Time Status Last Admin Dose Admin Ioversol (Optiray 320) 100 ml UD PRN IV 11/14/17 10:00 11/18/17 09:59 Acetaminophen (Tylenol Tab) 650 mg Q4H PRN PO 11/14/17 15:00 12/14/17 14:59 11/15/17 15:11 650 MG Al Hydrox/Mg Hydrox/Simethicone (Maalox Max Susp) 15 ml Q4H PRN PO 11/14/17 15:00 12/14/17 14:59 Magnesium Hydroxide (Milk Of Magnesia Susp) 30 ml Q6H PRN PO 11/14/17 15:00 12/14/17 14:59 Polyethylene (Miralax Powder Packet) 17 gm DAILY PRN PO 11/14/17 15:00 12/14/17 14:59 Ondansetron HCl (Zofran Inj) 4 mg Q6H PRN IV 11/14/17 15:00 12/14/17 14:59 Zolpidem Tartrate (Ambien Tab) 5 mg HSZ PRN PO 11/14/17 15:00 12/14/17 14:59 Famotidine (Pepcid Tab) 20 mg QAM PO 11/15/17 08:00 12/15/17 08:59 11/15/17 07:47 20 MG Diphenhydramine HCl (Benadryl Syrup) 25 mg Q8H PRN PO 11/14/17 15:00 12/14/17 14:59 Cyclobenzaprine HCl (Flexeril Tab) 5 mg BID PO 11/14/17 20:00 11/16/17 20:59 11/15/17 07:47 5 MG Gadobutrol (Gadavist) 7 mmol UD PRN IV 11/14/17 22:45 11/18/17 22:44 Senna (Senokot Tab) 17.2 mg QAM PO 11/16/17 08:00 12/16/17 07:59 Diclofenac Sodium (Voltaren 1% Top Gel) 1 appln Q6H EXT 11/15/17 12:00 12/15/17 11:59 11/15/17 13:02 1 APPLN Tramadol HCl (Ultram Tab) 50 mg Q4H PRN PO 11/15/17 12:00 12/15/17 11:59 (Ena Hunt PA-C) Objective Vital Signs Date Time Temp Pulse Resp B/P (MAP) Pulse Ox O2 Delivery O2 Flow Rate FiO2 11/15/17 09:54 36.7 79 20 99/65 (76) 96 11/15/17 08:00 Room Air 11/15/17 04:00 36.6 70 20 120/72 (88) 94 Room Air 11/15/17 01:15 36.4 68 18 116/71 (86) 95 Room Air 11/15/17 00:05 Room Air 11/14/17 20:05 94 Room Air 11/14/17 19:24 36.4 57 20 160/77 (104) 94 Room Air 11/14/17 18:50 57 18 100/56 95 Room Air 11/14/17 16:42 66 18 116/75 96 Room Air 11/14/17 16:42 65 (Ena Hunt PA-C) Physical Exam General Appearance: no apparent distress Eyes: sclerae normal, + pertinent finding (arcus senilis) ENT: hearing grossly normal Neck: supple, no JVD, trachea midline, + pertinent finding (limited passive ROM of head to lateral turning and anterior/posterior) Respiratory/Chest: lungs clear, normal breath sounds, no respiratory distress, no accessory muscle use Cardiovascular: regular rate, rhythm, no gallop, no murmur Abdomen: normal bowel sounds, non tender, soft Extremities: no pedal edema, no calf tenderness Neurologic/Psychiatric: alert, oriented x 3, + pertinent finding (flat affect) Skin: normal color (Ena Hunt, MAGEN) Laboratory Results Last 24 Hours Test 11/15/17 05:30 White Blood Count 10.89 K/uL Red Blood Count 2.71 M/uL Hemoglobin 8.6 g/dL Hematocrit 24.9 % Mean Corpuscular Volume 91.9 fL Mean Corpuscular Hemoglobin 31.7 pg Mean Corpuscular Hemoglobin Concent 34.5 g/dl Platelet Count 423 K/uL Mean Platelet Volume 10.8 fL Neutrophils (%) (Auto) 75.7 % Lymphocytes (%) (Auto) 3.7 % Monocytes (%) (Auto) 19.5 % Eosinophils (%) (Auto) 0.1 % Basophils (%) (Auto) 0.2 % Neutrophils # (Auto) 8.25 K/uL Lymphocytes # (Auto) 0.40 K/uL Monocytes # (Auto) 2.12 K/uL Eosinophils # (Auto) 0.01 K/uL Basophils # (Auto) 0.02 K/uL RDW Standard Deviation 60.4 fL RDW Coefficient of Variation 18.1 % Immature Granulocyte % (Auto) 0.8 % Immature Granulocyte # (Auto) 0.09 K/uL Giant Platelets 1+ Tear Drop Cells 1+ Ovalocytes 1+ Sodium Level 135 mmol/L Potassium Level 4.0 mmol/L Chloride Level 100 mmol/L Carbon Dioxide Level 28 mmol/L Anion Gap 7.0 mmol/L Blood Urea Nitrogen 20 mg/dl Creatinine 1.19 mg/dl Est Creatinine Clear Calc Drug Dose 45.0 ml/min Estimated GFR () 64.2 Estimated GFR (Non- 55.4 BUN/Creatinine Ratio 16.7 Random Glucose 115 mg/dl Calcium Level 8.8 mg/dl Magnesium Level 1.8 mg/dl Total Bilirubin 0.6 mg/dl Aspartate Amino Transf (AST/SGOT) 15 U/L Alanine Aminotransferase (ALT/SGPT) 13 U/L Alkaline Phosphatase 48 U/L Total Protein 6.6 gm/dl Albumin 3.4 gm/dl Globulin 3.2 gm/dl Albumin/Globulin Ratio 1.1 (Ena Hunt PA-C) Assessment and Plan 87-year-old man with past medical history of hypertension, BPH and history of cardiac arrhythmia status post ablation. 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, currently on chemotherapy presented to the hospital on 11/14/2017 with severe neck stiffness/headache Severe Neck Stiffness and Headache - Musculoskeletal Strain: - Headache is resolving and stiffness is improving; appears to be all musculoskeletal with some contraction of the muscules of the R shoulder/neck - Currently no signs of infectious cause - CT neck with significant degenerative changes and a lytic lesion vs cyst - K-pad; Voltaren gel; Flexeril 5 mg BID; Ultram PRN Balance Deficit and Acute Mood Changes: - No falls reporting by family but stating he has had close calls and continue to get progressive - 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 which could explain this - patient expressing desire for possible radiation for this - Family reports a rather rapid change in personality where is is less interested in doing things and less talkative; they have noticed him to have more of a flat affect lately - however reports his sister just last week; patient does appear to have almost a Parkinsonism appearance HTN and H/O Cardiac Arrhythmia S/P Ablation: - Lopressor 25 mg BID and Flecainide 100 mg BID BPH: - Proscar 5 mg daily Metastatic Small Cell Lung CA: - Currently on chemotherapy - will need outpatient f/u Myeloproliferative Disorder: STABLE - Continue to monitor Code Status: FULL RESUSCITATION Disposition: - Await PT/OT evaluations - Updated daughter at bedside Continued [facility] stay due to: ambulation difficulties (Ena Hunt PA-C) Attending Attestation: Pt seen/examined, chart reviewed, care plan d/w BRITT Hunt. I agree w/ the bojorquez components of her documentation. Pt w/ ongoing neck pain, worse on right. No paresthesias of hands or arms or any weakness of hands/arms. No fever. VSS no fever gen - thin, flat affect neck - reproducible tenderness over paraspinal musculature of right neck; no tenderness in the midline/spinous processes; restricted passive ROM of the neck heart - RRR lungs - CTA b/l abd - soft, NT ext - no edema CSF cell counts wnl CSF pathology report neg for malignant cells CSF cx neg cbc/bmp wnl except anemia present A/P: 1. 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 Check CT cervical spine. Muscle relaxers, pain meds, add decadron IV/PO BID, K-pad, voltaren gel. PT, OT evals 2. stage 4 small cell lung ca - balance/mood changes may be due to cerebeller/ frontal lobe mets. Deanna ZAMORA MD (Josh Zamora MD)
[2017-11-15] MEDS: TRAMADOL HCL 50 MG TAB PO PRN ×2 (16:50→21:09)
[2017-11-15] MEDS: DEXAMETHASONE INJ 4 MG in SYRINGE 0 ML IV SCH (21:11)
[2017-11-15] MEDS: METOPROLOL TARTRATE 25 MG TAB PO SCH (21:12)
[2017-11-15] MEDS: FLECAINIDE ACETATE 100 MG TAB PO SCH (21:12)
[2017-11-16] MEDS: DICLOFENAC SOD 1% GEL 100 GM TUBE EXT SCH ×4 (01:06→18:40)
[2017-11-16 04:40] VITALS: BP 127/72; PULSE 61; TEMP 36.6; O2SAT 96
[2017-11-16 06:04] LABS: BASO % 0.2 %; BASO ABS # 0.03 K/uL (0-0.2); EOS % 0.1 %; EOS ABS # 0.01 K/uL (0-0.5); HEMATOCRIT 28.1 % (42-52); HEMOGLOBIN 9.1 g/dL (14.0-18.0); IG# 0.14 K/uL (0.00-0.02); LYMPH % 3.9 %; LYMPH ABS # 0.49 K/uL (1.2-3.4); MEAN CORPUSCULAR HEMOGLOBIN 30.1 pg (25-34); MEAN CORPUSCULAR HGB CONC 32.4 g/dl (32-36); MEAN PLATELET VOLUME 11.3 fL (7.4-10.4); MONO % 9.1 %; MONO ABS # 1.13 K/uL (0.11-0.59); NEUT % 85.6 %; NEUT ABS # 10.61 K/uL (1.4-6.5); PLATELET COUNT 481 K/uL (130-400); RED CELL DISTRIBUTION WIDTH CV 18.1 % (11.5-14.5); RED CELL DISTRIBUTION WIDTH SD 61.6 fL (36.4-46.3); WHITE BLOOD COUNT 12.41 K/uL (4.8-10.8)
[2017-11-16] MEDS: TRAMADOL HCL 50 MG TAB PO PRN (06:11)
[2017-11-16 06:46] LABS: CALCIUM 9.5 mg/dl (8.5-10.1); CREATININE 1.11 mg/dl (0.60-1.40); POTASSIUM 4.7 mmol/L (3.5-5.1)
[2017-11-16] MEDS: DEXAMETHASONE INJ 4 MG in SYRINGE 0 ML IV SCH (07:47)
[2017-11-16] MEDS: CYCLOBENZAPRINE HCL 5 MG TAB PO SCH ×2 (07:48→19:33)
[2017-11-16] MEDS: METOPROLOL TARTRATE 25 MG TAB PO SCH ×2 (07:49→19:33)
[2017-11-16] MEDS: FAMOTIDINE 20 MG TAB PO SCH (07:50)
[2017-11-16] MEDS: SENNA 8.6 MG TAB PO SCH (07:50)
[2017-11-16] MEDS: FINASTERIDE 5 MG TAB PO SCH (07:50)
[2017-11-16] MEDS: FLECAINIDE ACETATE 100 MG TAB PO SCH ×2 (07:50→19:33)
[2017-11-16] MEDS: ALLOPURINOL 300 MG TAB PO SCH (07:51)
[2017-11-16 08:19] VITALS: BP 126/73; PULSE 60; TEMP 36.2; O2SAT 94
[2017-11-16 11:56] VITALS: BP 117/76; PULSE 57; TEMP 36.4; O2SAT 96
[2017-11-16 14:54] VITALS: BP 122/83; PULSE 69; TEMP 36.6; O2SAT 91
--- NOTE | 2017-11-16 17:24 | Hospitalist Progress Note ---
Hospitalist Progress Note Date of Service Nov 16, 2017. (Ena Hunt PA-C) Subjective Pt evaluation today including: conversation w/ patient, conversation w/ family , physical exam, chart review, lab review, review of studies, review of inpatient medication list Patient seen and evaluated. No acute events overnight. Reporting feeling a lot better today. ROM of neck improved but not yet baseline. No further headaches. More talkative and smiling more today. Still with a largely-mask like face PT/OT evaluations deemed him not safe to return home. Seems to be experiencing a decline in ability to complete ADLs since initiating chemotherapy. Patient would like to continue treatment. And also considering head radiation. He would like to go to rehab if insurance would approve. Constitutional: No fever, No chills ENT: + hearing loss (chronic) Respiratory: No cough, No shortness of breath Cardiovascular: No chest pain Abdomen: No pain, No vomiting, No diarrhea, No constipation Musculoskeletal: No joint pain, No swelling, No calf pain Male : No dysuria Neurologic: + balance problems Heme: No abnormal bleeding/bruising (Ena Hunt, PA-C) Medications Current Inpatient Medications Medications (Trade) Dose Ordered Sig/Lisandro Route Start Time Stop Time Status Last Admin Dose Admin Ioversol (Optiray 320) 100 ml UD PRN IV 11/14/17 10:00 11/18/17 09:59 Acetaminophen (Tylenol Tab) 650 mg Q4H PRN PO 11/14/17 15:00 12/14/17 14:59 11/15/17 15:11 650 MG Al Hydrox/Mg Hydrox/Simethicone (Maalox Max Susp) 15 ml Q4H PRN PO 11/14/17 15:00 12/14/17 14:59 Magnesium Hydroxide (Milk Of Magnesia Susp) 30 ml Q6H PRN PO 11/14/17 15:00 12/14/17 14:59 11/15/17 16:49 30 ML Polyethylene (Miralax Powder Packet) 17 gm DAILY PRN PO 11/14/17 15:00 12/14/17 14:59 Ondansetron HCl (Zofran Inj) 4 mg Q6H PRN IV 11/14/17 15:00 12/14/17 14:59 Zolpidem Tartrate (Ambien Tab) 5 mg HSZ PRN PO 11/14/17 15:00 12/14/17 14:59 Famotidine (Pepcid Tab) 20 mg QAM PO 11/15/17 08:00 12/15/17 08:59 11/16/17 07:50 20 MG Diphenhydramine HCl (Benadryl Syrup) 25 mg Q8H PRN PO 11/14/17 15:00 12/14/17 14:59 Cyclobenzaprine HCl (Flexeril Tab) 5 mg BID PO 11/14/17 20:00 11/16/17 20:59 11/16/17 07:48 5 MG Gadobutrol (Gadavist) 7 mmol UD PRN IV 11/14/17 22:45 11/18/17 22:44 Senna (Senokot Tab) 17.2 mg QAM PO 11/16/17 08:00 12/16/17 07:59 11/16/17 07:50 17.2 MG Diclofenac Sodium (Voltaren 1% Top Gel) 1 appln Q6H EXT 11/15/17 12:00 12/15/17 11:59 11/16/17 12:03 1 APPLN Tramadol HCl (Ultram Tab) 50 mg Q4H PRN PO 11/15/17 12:00 12/15/17 11:59 11/16/17 06:11 50 MG Allopurinol (Zyloprim Tab) 300 mg DAILY PO 11/16/17 08:00 12/16/17 07:59 11/16/17 07:51 300 MG Finasteride (Proscar Tab) 5 mg QAM PO 11/16/17 08:00 12/16/17 07:59 11/16/17 07:50 5 MG Flecainide Acetate (Tambocor Tab) 100 mg BID PO 11/15/17 20:00 12/15/17 19:59 11/16/17 07:50 100 MG Metoprolol Tartrate (Lopressor Tab) 25 mg BID PO 11/15/17 20:00 12/15/17 19:59 11/16/17 07:49 25 MG Dexamethasone (Decadron Tab) 4 mg BID PO 11/16/17 20:00 12/16/17 19:59 (Ena Hunt, QIC) Objective Vital Signs Date Time Temp Pulse Resp B/P (MAP) Pulse Ox O2 Delivery O2 Flow Rate FiO2 11/16/17 16:25 Room Air 11/16/17 14:54 36.6 69 20 122/83 (96) 91 Room Air 11/16/17 11:56 36.4 57 18 117/76 (90) 96 Room Air 11/16/17 08:19 36.2 60 18 126/73 (90) 94 Room Air 11/16/17 08:00 Room Air 11/16/17 04:40 36.6 61 18 127/72 (90) 96 Room Air 11/16/17 01:15 Room Air 11/15/17 23:57 36.5 70 18 123/76 (92) 93 Room Air 11/15/17 19:23 36.4 94 20 109/73 (85) 93 Room Air (Ena Hunt PA-C) Physical Exam General Appearance: no apparent distress Eyes: sclerae normal, + pertinent finding (arcus senilis b/l) ENT: hearing grossly normal (with hearing aid) Neck: supple, no JVD, trachea midline, + pertinent finding (improving PROM of neck to lateral gaze and anterior/posterior movements; muscles less contracted; no tenderness to palpation) Respiratory/Chest: lungs clear, normal breath sounds, no respiratory distress, no accessory muscle use Cardiovascular: regular rate, rhythm, no gallop, no murmur Abdomen: normal bowel sounds, non tender, soft Extremities: no pedal edema Neurologic/Psychiatric: alert, oriented x 3 Skin: normal color (Ena Hunt PA-C) Laboratory Results Last 24 Hours Test 11/16/17 05:29 White Blood Count 12.41 K/uL Red Blood Count 3.02 M/uL Hemoglobin 9.1 g/dL Hematocrit 28.1 % Mean Corpuscular Volume 93.0 fL Mean Corpuscular Hemoglobin 30.1 pg Mean Corpuscular Hemoglobin Concent 32.4 g/dl Platelet Count 481 K/uL Mean Platelet Volume 11.3 fL Neutrophils (%) (Auto) 85.6 % Lymphocytes (%) (Auto) 3.9 % Monocytes (%) (Auto) 9.1 % Eosinophils (%) (Auto) 0.1 % Basophils (%) (Auto) 0.2 % Neutrophils # (Auto) 10.61 K/uL Lymphocytes # (Auto) 0.49 K/uL Monocytes # (Auto) 1.13 K/uL Eosinophils # (Auto) 0.01 K/uL Basophils # (Auto) 0.03 K/uL RDW Standard Deviation 61.6 fL RDW Coefficient of Variation 18.1 % Immature Granulocyte % (Auto) 1.1 % Immature Granulocyte # (Auto) 0.14 K/uL Sodium Level 134 mmol/L Potassium Level 4.7 mmol/L Chloride Level 100 mmol/L Carbon Dioxide Level 28 mmol/L Anion Gap 6.0 mmol/L Blood Urea Nitrogen 26 mg/dl Creatinine 1.11 mg/dl Est Creatinine Clear Calc Drug Dose 46.7 ml/min Estimated GFR () 69.8 Estimated GFR (Non- 60.2 BUN/Creatinine Ratio 23.8 Random Glucose 140 mg/dl Calcium Level 9.5 mg/dl (Ena Hunt, PARondaC) Assessment and Plan 87-year-old man with past medical history of hypertension, BPH and history of cardiac arrhythmia status post ablation. 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 - Continues to show noo signs of infectious cause - CT neck with significant degenerative changes and a lytic lesion vs cyst - K-pad; Voltaren gel; Flexeril 5 mg BID; Ultram PRN Balance Deficit and Acute Mood Changes: - No falls reporting by family but stating he has had close calls and continue to get progressive; started with onset of chemotherapy - 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 which could explain this - patient expressing desire for possible radiation for this - Family reports a rather rapid change in personality where is is less interested in doing things and less talkative; they have noticed him to have more of a flat affect lately - however reports his sister just last week; patient does appear to have almost a Parkinsonism appearance HTN and H/O Cardiac Arrhythmia S/P Ablation: - Lopressor 25 mg BID and Flecainide 100 mg BID BPH: - Proscar 5 mg daily Metastatic Small Cell Lung CA: - Currently on chemotherapy - will need outpatient f/u Myeloproliferative Disorder: STABLE - Continue to monitor Code Status: FULL RESUSCITATION Disposition: - Recommendations for rehab and daughter and patient agree - medically suitable if arrangements can be made with outpatient Oncology F/U Continued [facility] stay due to: ambulation difficulties [facility] (Ena Hunt, MAGEN) Attending Attestation: Pt seen/examined, chart reviewed, care plan d/w BRITT Hunt. I agree w/ the bojorquez components of her documentation. Neck ROM is improved Pain is improved likes the heating pad overall he simply feels better confirms that Dr. Bowen, [facility] heme/onc, is his oncologist VSS no fever gen - NAD, looks better today neck - improved passive/active flexion, extension, and rotation today; not as tender with palpation of paraspinal musculature heart - RRR lungs - CTA b/l abd - soft, NT ext - no edema CSF cx neg CT cervical spine - severe DJD; C7 lytic lesion vs cyst A/P: 1. severe cervical neck pain - appears musculoskeletal in origin - cervical DJD vs muscle strain vs combination of factors. Doubt C7 lesion is contributing but cannot rule it out fully. Muscle relaxers, pain meds, voltaren gel, k-pad, and steroids. PT, OT 2. stage 4 small cell lung ca - balance/mood changes may be due to cerebeller/ frontal lobe mets. will attempt to speak with Dr. Bowen from oncology about his MRI head daughter updated at bedside he is agreeable to placement for rehab Deanna CUNNINGHAM MD (Josh Cunningham MD)
[2017-11-16 19:37] VITALS: BP 133/79; PULSE 70; TEMP 36.5; O2SAT 95
[2017-11-16] MEDS: DEXAMETHASONE 4 MG TAB PO SCH (19:40)
[2017-11-16 23:34] VITALS: BP 125/73; PULSE 62; TEMP 36.7; O2SAT 94
[2017-11-17] VITALS (9 sets, daily range): BP systolic 120–145; BP diastolic 69–79; PULSE 51–58; TEMP 36.4–36.6; O2SAT 93–97
[2017-11-17] MEDS: DICLOFENAC SOD 1% GEL 100 GM TUBE EXT SCH ×4 (00:55→18:37)
[2017-11-17] MEDS: DEXAMETHASONE 4 MG TAB PO SCH ×2 (08:21→19:18)
[2017-11-17] MEDS: FINASTERIDE 5 MG TAB PO SCH (08:21)
[2017-11-17] MEDS: SENNA 8.6 MG TAB PO SCH (08:21)
[2017-11-17] MEDS: FAMOTIDINE 20 MG TAB PO SCH (08:21)
[2017-11-17] MEDS: ALLOPURINOL 300 MG TAB PO SCH (08:22)
[2017-11-17] MEDS: FLECAINIDE ACETATE 100 MG TAB PO SCH ×2 (08:22→19:19)
[2017-11-17] MEDS: METOPROLOL TARTRATE 25 MG TAB PO SCH ×2 (08:22→20:39)
--- NOTE | 2017-11-17 15:10 | Hospitalist Progress Note ---
Hospitalist Progress Note Date of Service Nov 17, 2017. (Ena Hunt PA-C) Subjective Pt evaluation today including: conversation w/ patient, physical exam, chart review, lab review, review of studies, review of inpatient medication list Reporting neck stiffness feels largely resolved. States he doesn't have his complete ROM but almost to baseline. Talked with Dr. Bowen who states he plans to f/u with patient next week as an outpatient. No indication for in-house chemotherapy. Patient would like to go home but does understand that his ambulation hasn't been the greatest hussein. since he lives alone. Had a long conversation that he knows his family feels that they have seen a personality change in him. He states that he does feel depressed mostly because he lost his 6 years ago and his activity is limited in the winter. States he wishes he had people to talk to as he spends a lot of time alone. He says he talks with his family as much as he can but still feels depressed. Constitutional: No fever, No chills Respiratory: No cough, No shortness of breath Cardiovascular: No chest pain Abdomen: No pain, No nausea, No vomiting, No diarrhea, No constipation Musculoskeletal: No joint pain, No calf pain Male : No dysuria Psychiatric: No depression symptoms Heme: No abnormal bleeding/bruising (Ena Hunt PA-C) Medications Current Inpatient Medications Medications (Trade) Dose Ordered Sig/Lisandro Route Start Time Stop Time Status Last Admin Dose Admin Ioversol (Optiray 320) 100 ml UD PRN IV 11/14/17 10:00 11/18/17 09:59 Acetaminophen (Tylenol Tab) 650 mg Q4H PRN PO 11/14/17 15:00 12/14/17 14:59 11/15/17 15:11 650 MG Al Hydrox/Mg Hydrox/Simethicone (Maalox Max Susp) 15 ml Q4H PRN PO 11/14/17 15:00 12/14/17 14:59 Magnesium Hydroxide (Milk Of Magnesia Susp) 30 ml Q6H PRN PO 11/14/17 15:00 12/14/17 14:59 11/15/17 16:49 30 ML Polyethylene (Miralax Powder Packet) 17 gm DAILY PRN PO 2/12/18 15:00 12/14/17 14:59 Ondansetron HCl (Zofran Inj) 4 mg Q6H PRN IV 11/14/17 15:00 12/14/17 14:59 Zolpidem Tartrate (Ambien Tab) 5 mg HSZ PRN PO 11/14/17 15:00 12/14/17 14:59 Famotidine (Pepcid Tab) 20 mg QAM PO 11/15/17 08:00 12/15/17 08:59 11/17/17 08:21 20 MG Diphenhydramine HCl (Benadryl Syrup) 25 mg Q8H PRN PO 11/14/17 15:00 12/14/17 14:59 Gadobutrol (Gadavist) 7 mmol UD PRN IV 11/14/17 22:45 11/18/17 22:44 Senna (Senokot Tab) 17.2 mg QAM PO 11/16/17 08:00 12/16/17 07:59 11/17/17 08:21 17.2 MG Diclofenac Sodium (Voltaren 1% Top Gel) 1 appln Q6H EXT 11/15/17 12:00 12/15/17 11:59 11/17/17 06:13 1 APPLN Tramadol HCl (Ultram Tab) 50 mg Q4H PRN PO 11/15/17 12:00 12/15/17 11:59 11/16/17 06:11 50 MG Allopurinol (Zyloprim Tab) 300 mg DAILY PO 11/16/17 08:00 12/16/17 07:59 11/17/17 08:22 300 MG Finasteride (Proscar Tab) 5 mg QAM PO 11/16/17 08:00 12/16/17 07:59 11/17/17 08:21 5 MG Flecainide Acetate (Tambocor Tab) 100 mg BID PO 11/15/17 20:00 12/15/17 19:59 11/17/17 08:22 100 MG Metoprolol Tartrate (Lopressor Tab) 25 mg BID PO 11/15/17 20:00 12/15/17 19:59 11/17/17 08:22 25 MG Dexamethasone (Decadron Tab) 4 mg BID PO 11/16/17 20:00 12/16/17 19:59 11/17/17 08:21 4 MG (Ena Hunt PA-C) Objective Vital Signs Date Time Temp Pulse Resp B/P (MAP) Pulse Ox O2 Delivery O2 Flow Rate FiO2 11/17/17 11:40 36.4 58 16 126/77 (93) 95 Room Air 11/17/17 08:00 Room Air 11/17/17 07:19 36.5 51 16 120/70 (87) 96 Room Air 11/17/17 04:58 36.6 52 20 135/71 (92) 95 Room Air 11/17/17 00:15 Room Air 11/16/17 23:34 36.7 62 18 125/73 (90) 94 Room Air 11/16/17 19:37 36.5 70 18 133/79 (97) 95 Room Air 11/16/17 19:30 Room Air 11/16/17 16:25 Room Air 11/16/17 14:54 36.6 69 20 122/83 (96) 91 Room Air (Ena Hunt PA-C) Physical Exam General Appearance: no apparent distress ENT: hearing grossly normal Neck: supple, no JVD, trachea midline Respiratory/Chest: lungs clear, normal breath sounds, no respiratory distress, no accessory muscle use Cardiovascular: regular rate, rhythm, no gallop, no murmur Abdomen: normal bowel sounds, non tender, soft Extremities: no calf tenderness Neurologic/Psychiatric: alert, oriented x 3, + pertinent finding (mask-like face) Skin: normal color (Ena Hunt PA-C) Assessment and Plan 87-year-old man with past medical history of hypertension, BPH and history of cardiac arrhythmia status post ablation. 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 - Continues to show no signs of infectious cause - CT neck with significant degenerative changes and a lytic lesion vs cyst - K-pad; Voltaren gel; Flexeril 5 mg BID; Ultram PRN Balance Deficit and Acute Mood Changes/Depression: - No falls reporting by family but stating he has had close calls and continue to get progressive; started with onset of chemotherapy - 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 which could explain this - patient expressing desire for possible radiation for this - Family reports a rather rapid change in personality where is is less interested in doing things and less talkative; they have noticed him to have more of a flat affect lately - however reports his sister just last week; patient does appear to have almost a Parkinsonism appearance - Patient reporting depression - Will start Prozac 10 mg daily HTN and H/O Cardiac Arrhythmia S/P Ablation: - Lopressor 25 mg BID and Flecainide 100 mg BID BPH: - Proscar 5 mg daily Metastatic Small Cell Lung CA: - Currently on chemotherapy - will need outpatient f/u - Discussed with Dr. Bowen - plan to continue treatment next week as outpatient Myeloproliferative Disorder: STABLE - Continue to monitor Code Status: FULL RESUSCITATION Disposition: - Recommendations for rehab and daughters and patient agree - medically suitable if arrangements can be made with outpatient Oncology F/U - Discussed with daughter Radha over the phone today Continued [facility] stay due to: ambulation difficulties Discharge planning: senior living facility (Ena Hunt, PARondaC) Attending Attestation: Pt seen/examined, chart reviewed, care plan d/w PA Ena Hunt. I agree w/ the bojorquez components of her documentation. Patient ambulating in the hallways on his own. Neck pain MUCH improved with resolving stiffness and improved ROM. No other complaints; did state "I think I have been depressed." VSS no fever gen - NAD, looks good today neck - again improved passive/active flexion, extension, and rotation today; no tenderness to palpation heart - RRR lungs - CTA b/l abd - soft, NT ext - no edema CSF cx neg CT cervical spine - severe DJD; C7 lytic lesion vs cyst cbc and bmp acceptable A/P: 1. severe cervical neck pain - appears musculoskeletal in origin - cervical DJD vs muscle strain vs combination of factors. Doubt C7 lesion is contributing but cannot rule it out fully. Muscle relaxers, pain meds, voltaren gel, k-pad, and steroids. Start weaning the latter. PT, OT appreciated Vascular work-up and meningitis w/u all negative 2. stage 4 small cell lung ca - balance/mood changes may be due to cerebeller/ frontal lobe mets, respectively Marilee spoke with his oncologist, Dr. Bowen - Mr. Guo will f/u with him next week There has been some talk about radiation to the brain in the near future dispo - rehab - social work assisting with such J SERA PEREZ (Josh Cunningham MD)
[2017-11-17] MEDS: FLUOXETINE HCL 10 MG CAP PO SCH (20:42)
[2017-11-18] VITALS (8 sets, daily range): BP systolic 133–145; BP diastolic 69–84; PULSE 53–73; TEMP 36.4–36.8; O2SAT 93–98
[2017-11-18] MEDS: SENNA 8.6 MG TAB PO SCH (08:00)
[2017-11-18] MEDS: METOPROLOL TARTRATE 25 MG TAB PO SCH ×2 (08:00→19:45)
[2017-11-18] MEDS: DICLOFENAC SOD 1% GEL 100 GM TUBE EXT SCH ×4 (08:06→18:27)
[2017-11-18] MEDS: ALLOPURINOL 300 MG TAB PO SCH (08:06)
[2017-11-18] MEDS: FINASTERIDE 5 MG TAB PO SCH (08:06)
[2017-11-18] MEDS: FAMOTIDINE 20 MG TAB PO SCH (08:07)
[2017-11-18] MEDS: FLECAINIDE ACETATE 100 MG TAB PO SCH ×2 (08:07→19:45)
[2017-11-18] MEDS: DEXAMETHASONE 4 MG TAB PO SCH (08:07)
[2017-11-18] MEDS ORDERED: LORAZEPAM 0.5 MG TAB ONE (12:37)
[2017-11-18] MEDS ORDERED: NURSING VERBAL MED ORDER ONE (12:45)
[2017-11-18] MEDS ORDERED: LORAZEPAM 0.5 MG TAB PO PRN (13:00)
--- NOTE | 2017-11-18 17:01 | Hospitalist Progress Note ---
Hospitalist Progress Note Date of Service Nov 18, 2017. (Ena Hunt PA-C) Subjective Pt evaluation today including: conversation w/ patient, conversation w/ family , physical exam, chart review, review of inpatient medication list Patient seen and evaluated. No acute events overnight. Patient is more talkative and smiling more today. Neck is much less stiff and feeling at baseline. Reporting chronic issues with difficulty opening his mouth and this has resolved. Did well with PT/OT today and denies HSNV. Talked with daughter on the phone and planning on meeting in patient room to discuss options. Patient has long-term care policy and could get 24 hr caregivers under this policy for home coverage but will need arranged. Constitutional: No fever, No chills Respiratory: No cough, No shortness of breath Cardiovascular: No chest pain Abdomen: No pain, No nausea, No vomiting Musculoskeletal: No joint pain Heme: No abnormal bleeding/bruising (Ena Hunt PA-C) Medications Current Inpatient Medications Medications (Trade) Dose Ordered Sig/Lisandro Route Start Time Stop Time Status Last Admin Dose Admin Acetaminophen (Tylenol Tab) 650 mg Q4H PRN PO 11/14/17 15:00 12/14/17 14:59 11/15/17 15:11 650 MG Al Hydrox/Mg Hydrox/Simethicone (Maalox Max Susp) 15 ml Q4H PRN PO 11/14/17 15:00 12/14/17 14:59 Magnesium Hydroxide (Milk Of Magnesia Susp) 30 ml Q6H PRN PO 11/14/17 15:00 12/14/17 14:59 11/15/17 16:49 30 ML Polyethylene (Miralax Powder Packet) 17 gm DAILY PRN PO 11/14/17 15:00 12/14/17 14:59 Ondansetron HCl (Zofran Inj) 4 mg Q6H PRN IV 11/14/17 15:00 12/14/17 14:59 Zolpidem Tartrate (Ambien Tab) 5 mg HSZ PRN PO 11/14/17 15:00 12/14/17 14:59 Famotidine (Pepcid Tab) 20 mg QAM PO 11/15/17 08:00 12/15/17 08:59 11/18/17 08:07 20 MG Diphenhydramine HCl (Benadryl Syrup) 25 mg Q8H PRN PO 11/14/17 15:00 12/14/17 14:59 Gadobutrol (Gadavist) 7 mmol UD PRN IV 11/14/17 22:45 11/18/17 22:44 Senna (Senokot Tab) 17.2 mg QAM PO 11/16/17 08:00 12/16/17 07:59 11/17/17 08:21 17.2 MG Diclofenac Sodium (Voltaren 1% Top Gel) 1 appln Q6H EXT 11/15/17 12:00 12/15/17 11:59 11/18/17 12:38 1 APPLN Tramadol HCl (Ultram Tab) 50 mg Q4H PRN PO 11/15/17 12:00 12/15/17 11:59 11/16/17 06:11 50 MG Allopurinol (Zyloprim Tab) 300 mg DAILY PO 11/16/17 08:00 12/16/17 07:59 11/18/17 08:06 300 MG Finasteride (Proscar Tab) 5 mg QAM PO 11/16/17 08:00 12/16/17 07:59 11/18/17 08:06 5 MG Flecainide Acetate (Tambocor Tab) 100 mg BID PO 11/15/17 20:00 12/15/17 19:59 11/18/17 08:07 100 MG Metoprolol Tartrate (Lopressor Tab) 25 mg BID PO 11/15/17 20:00 12/15/17 19:59 11/17/17 08:22 25 MG Fluoxetine HCl (Prozac Cap) 10 mg HS PO 11/17/17 21:00 12/17/17 20:59 11/17/17 20:42 10 MG Dexamethasone (Decadron Tab) 4 mg DAILY PO 11/19/17 08:00 12/16/17 19:59 Lorazepam (Ativan Tab) 0.5 mg BID PRN PO 11/18/17 13:00 12/18/17 12:59 (Ena Hunt, MAGEN) Objective Vital Signs Date Time Temp Pulse Resp B/P (MAP) Pulse Ox O2 Delivery O2 Flow Rate FiO2 11/18/17 14:59 36.4 73 20 138/84 (102) 95 11/18/17 11:09 36.4 68 20 134/82 (99) 97 11/18/17 09:54 Room Air 11/18/17 07:20 36.5 56 20 143/75 (97) 95 11/18/17 03:45 36.7 53 18 133/69 (90) 97 Room Air 11/18/17 00:00 93 Room Air 11/17/17 23:06 36.5 56 16 145/79 (101) 97 Room Air 11/17/17 20:38 57 11/17/17 19:39 36.4 18 94 Room Air 11/17/17 19:22 56 143/78 (99) (Ena Hunt PARondaC) Physical Exam General Appearance: WD/WN, no apparent distress Eyes: sclerae normal ENT: hearing grossly normal Neck: supple, no JVD, trachea midline, + pertinent finding (improved ROM laterally) Respiratory/Chest: lungs clear, normal breath sounds, no respiratory distress, no accessory muscle use Cardiovascular: regular rate, rhythm Abdomen: normal bowel sounds, non tender, soft Extremities: no pedal edema, no calf tenderness Neurologic/Psychiatric: alert, oriented x 3 Skin: normal color, warm/dry (Ena Hunt, PA-C) Assessment and Plan 87-year-old man with past medical history of hypertension, BPH and history of cardiac arrhythmia status post ablation. 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 - Continues to show no signs of infectious cause - CT neck with significant degenerative changes and a lytic lesion vs cyst - K-pad; Voltaren gel; Flexeril 5 mg BID; Ultram PRN; Decadron taper Balance Deficit and Acute Mood Changes/Depression: - No falls reporting by family but stating he has had close calls and continue to get progressive; started with onset of chemotherapy - 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 which could explain this - patient expressing desire for possible radiation for this - Family reports a rather rapid change in personality where he is less interested in doing things and less talkative; they have noticed him to have more of a flat affect lately - however reports his sister just last week; patient does appear to have almost a Parkinsonism appearance - Patient reporting depression - Started Prozac 10 mg daily on 11/17 and so far tolerating this; also prescribed PRN Ativan by oncology HTN and H/O Cardiac Arrhythmia S/P Ablation: - Lopressor 25 mg BID and Flecainide 100 mg BID BPH: - Proscar 5 mg daily Metastatic Small Cell Lung CA: - Currently on chemotherapy - will need outpatient f/u - Discussed with Dr. Bowen on 11/17 - plan to continue treatment next week as outpatient Myeloproliferative Disorder: STABLE - Continue to monitor Code Status: FULL RESUSCITATION Disposition: - Did well with PT/OT today and denied HSNV - going to discuss with family options of maybe some home services Discharge planning: home with home health (Ena Hunt PA-C) Reviewed: Pt Seen/Exam by Me (Corrina Aguirre MD) History Physician Facility Engineer supervision Note: I interviewed and examined the patient. Discussed with BRITT Hunt and agree with findings and plan as documented in the note. Any exceptions or clarifications are listed here: Patient feeling much better, neck is still a little bit stiff but he feels his range of motion is much improved. Discussed not driving at least for a week until the neck is completely better- he is upset about this. 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 -He still has some CSF studies which are pending but seem less likely to be positive at this point including CMV, HSV, varicella, enterovirus, EBV-follow- up on these even if discharged tomorrow -Follow-up with oncology -Continue muscle relaxers and pain control as needed -Plan for home physical therapy upon discharge Documented By: Corrina Aguirre (Corrina Aguirre MD)
[2017-11-18] MEDS: FLUOXETINE HCL 10 MG CAP PO SCH (19:45)
[2017-11-19 03:11] VITALS: BP 148/70; PULSE 51; TEMP 36.6; O2SAT 98
[2017-11-19 07:30] VITALS: BP 148/89; PULSE 53; TEMP 36.3; O2SAT 97
[2017-11-19] MEDS ORDERED: DEXAMETHASONE 4 MG TAB PO SCH (08:00)
[2017-11-19] MEDS: ALLOPURINOL 300 MG TAB PO SCH (08:34)
[2017-11-19] MEDS: FINASTERIDE 5 MG TAB PO SCH (08:34)
[2017-11-19] MEDS: FLECAINIDE ACETATE 100 MG TAB PO SCH (08:34)
[2017-11-19] MEDS: SENNA 8.6 MG TAB PO SCH (08:34)
[2017-11-19] MEDS: FAMOTIDINE 20 MG TAB PO SCH (08:34)
[2017-11-19] MEDS: DICLOFENAC SOD 1% GEL 100 GM TUBE EXT SCH ×3 (08:37→11:43)
[2017-11-19] MEDS: METOPROLOL TARTRATE 25 MG TAB PO SCH (08:37)
[2017-11-19 10:36] VITALS: BP 148/89; PULSE 53; TEMP 36.3; O2SAT 97
[2017-11-19] MEDS ORDERED: FLUO10CA24 PO (10:58)
[2017-11-19] MEDS ORDERED: VLTG EXT (10:58)
[2017-11-19] MEDS ORDERED: ATV5 PO (10:58)
[2017-11-19] MEDS ORDERED: DXM4 PO (10:58)
--- NOTE | 2017-11-19 11:04 | Discharge Instructions ---
Discharge Instructions Date of Service Nov 19, 2017. Admission Reason for Admission: Headache Discharge Discharge Diagnosis / Problem: Tension headache, musculoskeletal neck pain and spasm Discharge Goals Goal(s): Improve disease control, Diagnostic testing, Therapeutic intervention Activity Recommendations Activity Limitations: as noted below Exercise/Sports Limitations: gradually increase as tolerated Shower/Bathe: no limitations Driving or Machine Use: no driving until neck stiffness is improved and advised to do so by your PCP . Instructions / Follow-Up Instructions / Follow-Up Your neck stiffness and headache have improved. Please finish out the dexamethasone (steroid) for two more days. You can use voltaren gel topically as needed; you can continue the heating pad as needed. Please follow up with your PCP within 1-2 weeks after discharge. Please follow up with your Oncologist next week to resume chemotherapy. Current Hospital Diet Patient's current hospital diet: Regular Diet Discharge Diet Recommended Diet: Regular Diet Procedures Procedures Performed: CT Cervical Spine Brain MRI CTA Neck and Head MRI Brain Chest xray Head CT Pending Studies Studies pending at discharge: yes List of pending studies: CMV, HSV, varicella, enterovirus, EBV titers Medical Emergencies . Who to Call and When: Medical Emergencies: If at any time you feel your situation is an emergency, please call 911 immediately. . Non-Emergent Contact Non-Emergency issues call your: Primary Care Provider, Oncologist Call Non-Emergent contact if: you have a fever, temperature is above 100.5, your pain is not controlled, your pain is worsening, your pain is unusual for you, your pain is concerning you, you have any medication questions . . "Provider Documentation" section prepared by Corrina Aguirre. . VTE Core Measure Inpt VTE Proph given/why not?: Gonzalez Bates, SCD's
--- NOTE | 2017-11-20 23:41 | Discharge Summary ---
Discharge Summary Date of Service Nov 19, 2017. Discharge Summary Admission Date: Nov 14, 2017 at 14:55 Discharge Date: Nov 19, 2017 Discharge Disposition: Home with services Principal Diagnosis: Tension headache, neck pain and stiffness-MSK Problems/Secondary Diagnoses: Hypertension BPH History of cardiac arrhythmia/?SVT status post unsuccessful ablation Metastatic small cell lung cancer Cervical spine DJD Cervical spine lytic lesion vs cyst Ambulatory dysfunction-may be partially in part due to side effect of chemotherapy and/or possible cerebellar lesion on Brain MRI Major depressive disorder, single episode BPH Myeloproliferative Disorder Procedures: CT Cervical Spine Brain MRI CTA Neck and Head MRI Brain Chest xray Head CT Lumbar puncture Consultations: Neurology Medication Reconciliation New Medications: Dexamethasone (Dexamethasone) 4 Mg Tab 4 MG PO DAILY for 2 Days, #2 TAB Diclofenac Sod (Voltaren) 100 Appln/100 Gm Gel 1 APPLN EXT Q6H, #1 TUBE Fluoxetine HCl (Fluoxetine HCl) 10 Mg Cap 10 MG PO DAILY for 30 Days, #30 CAP Lorazepam (Lorazepam) 0.5 Mg Tab 0.5 MG PO BID PRN for ANXIETY for 30 Days ALREADY HAS A Rx FOR THIS AT HOME Continued Medications: Acetaminophen (Sb Non-Aspirin Extra Stre) 500 Mg Tab 500 MG PO Q4H PRN for Pain, #30 TAB Allopurinol (Allopurinol) 300 Mg Tab 300 MG PO DAILY for 90 Days, TAB Aspirin (Aspirin) 81 Mg Tab 81 MG PO QAM Diphenhydramine Hcl (Benadryl Allergy) 25 Mg Tab 1 TAB PO QAM PRN for ALLERGIES Fexofenadine Hcl (Nirali Allergy) 180 Mg Tab 180 MG PO DAILY Finasteride (Proscar) 5 Mg Tab 5 MG PO QAM, TAB Flecainide (Tambocor) 100 Mg Tab 100 MG PO BID, TAB Methylcellulose (Laxative) (Citrucel) 500 Mg Tab 500 MG PO PRN for Constipation Metoprolol Tartrate (Lopressor) 25 Mg Tab 25 MG PO BID, TAB Pantoprazole (Pantoprazole Sodium) 40 Mg Tab 40 MG PO QAM for 90 Days, TAB Triamcinolone Acet (Triamcinolone Acetonide) 45 Appln/15 Gm Oint 1 APPLN TOP BID [Boost] () 1 CAN LIQD 1 CAN PO BID for 30 Days Discharge Exam Feeling great, no neck pain, has some residual stiffness. Has been practicing his PT maneuvers with his neck. Jj po, moving bowels, ambulating with assistance. Ready for discharge. Vitals reviewed Gen: AAOx3, NAD HEENT: anicteric sclerae, EOMI Neck: No tenderness to palpation, range of motion is slightly decreased going to approximately 60 to the left and right from midline CV: RRR no mgr nl S1S2 Pulm: CTAB no wcr Abd: +BS soft NT ND no masses or hernias Ext: no edema, 2+ DP pulses Skin: no rashes, warm/dry Review of Systems: Constitutional: No fever Eyes: No problem reported ENT: No problem reported Respiratory: No problem reported Cardiovascular: No problem reported Abdomen: No problem reported Musculoskeletal: + problem reported (neck stiffness) Genitourinary - Male: No problem reported Neurologic: No problem reported Psychiatric: No problem reported Endocrine: No problem reported Hematologic / Lymphatic: No problem reported Integumentary: No problem reported Hospital Course Patient is an 87-year-old male with history of 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 - Continues to show no signs of infectious cause -He still has some CSF studies which are pending but seem less likely to be positive at this point including CMV, HSV, varicella, enterovirus, EBV-follow- up on these after discharge by PCP - CT neck with significant degenerative changes and a lytic lesion vs cyst - treated with heating pad; Voltaren gel; Flexeril 5 mg BID; Ultram PRN; Decadron taper to be continued for 2 more days after discharge -Follow-up with oncology -Plan for home physical therapy upon discharge -recommended no driving until cleared by PCP given decreased ROM of neck Dizziness: - No falls reporting by family but stating he has had close calls and continue to get progressive; started with onset of chemotherapy - 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 which could explain this Major depressive disorder - Family reports a rather rapid change in personality where he is less interested in doing things and less talkative; they have noticed him to have more of a flat affect lately - Patient reporting depression - Started Prozac 10 mg daily and f/u with PCP - also prescribed PRN Ativan by oncology HTN and H/O SVT-stable - continue Lopressor 25 mg BID and Flecainide 100 mg BID BPH:no issues - continue Proscar 5 mg daily Metastatic Small Cell Lung CA: - Currently on chemotherapy - will need outpatient f/u - Discussed with Dr. Bowen on 11/17 - plan to continue treatment next week as outpatient Myeloproliferative Disorder: STABLE - Continue to monitor Code Status: FULL RESUSCITATION Disposition: - dc to home with home services Total Time Spent: Greater than 30 minutes This includes examination of the patient, discharge planning, medication reconciliation, and communication with other providers. Discharge Instructions Please refer to the electronic Patient Visit Report (Discharge Instructions) for additional information. Follow-Up PCP within 1-2 weeks Oncology in 1 week Additional Copies To Hernesto Jorgensen M.D.
== END 2017-11-19 13:40 | disposition home health service (06) | DRG 552 ==
LOC: C.EDB 08:53 → C.4E 14:55 → EDBEDREQ 15:12 → EDBEDREQSVC 15:12 → ENRESERV 18:33
PROVIDERS: ADMIT Internal Medicine; ATTEND Family Medicine
PROC: 009U3ZX Drainage of Spinal Canal, Percutaneous Approach, Diagnostic (ICD-10-PCS; principal; 2017-11-14)
DX: S16.1XXA Strain of muscle, fascia and tendon at neck level, initial encounter (principal); C34.90 Malignant neoplasm of unspecified part of unspecified bronchus or lung; C94.6 Myelodysplastic disease, not elsewhere classified; G44.209 Tension-type headache, unspecified, not intractable; M43.6 Torticollis; F32.9 Major depressive disorder, single episode, unspecified; D47.3 Essential (hemorrhagic) thrombocythemia; H51.0 Palsy (spasm) of conjugate gaze; M47.812 Spondylosis without myelopathy or radiculopathy, cervical region; R26.9 Unspecified abnormalities of gait and mobility; R40.2414 Glasgow coma scale score 13-15, 24 hours or more after hospital admission; L80 Vitiligo; I10 Essential (primary) hypertension; N40.0 Benign prostatic hyperplasia without lower urinary tract symptoms; Z51.81 Encounter for therapeutic drug level monitoring; Z79.899 Other long term (current) drug therapy; Z79.82 Long term (current) use of aspirin; Z87.891 Personal history of nicotine dependence; Z88.2 Allergy status to sulfonamides; Z82.49 Family history of ischemic heart disease and other diseases of the circulatory system; Z82.3 Family history of stroke; X58.XXXA Exposure to other specified factors, initial encounter

== ENCOUNTER → 2017-11-22 | Outpatient (CLI) | payer OTHER ==
[~2017-11-22] MED LIST changes: +ACET-1256 PO; +ATV5 PO; +DICL1GEL12 TD; +DXM4 PO; +FEXO1TAB49 PO; +FLUO10CA24 PO; +FLUO10CA48 PO; +LORA-741 PO; +METH500T3 PO; -NF1094 PO; +ONDA8TAB6 PO; +OPTIRAY 320 IV PRN; +PANT40TA PO; +VLTG EXT
--- NOTE | 2017-11-22 10:53 | DIAGNOSTIC IMAGING REPORT ---
CT ABD/PELVIS IV AND ORAL CONT CLINICAL HISTORY: Metastatic small cell carcinoma COMPARISON STUDY: 08/14/2017 TECHNIQUE: Following the IV administration of 94 mL of Optiray-320, CT scan of the abdomen and pelvis was performed from the lung bases to the proximal femurs. Images are reviewed in the axial, sagittal, and coronal planes. IV contrast was administered without complication. A dose lowering technique was utilized adhering to the principles of ALARA. CT DOSE: 938.89 mGy.cm FINDINGS: Lower chest: There is been interval decrease in the size of the bilateral lower lobe pulmonary nodules. An index left lower lobe point nodule currently measures 11 mm in diameter. This previously measured 16 mm in diameter. Liver: There is been slight interval decrease in the size of multiple hepatic masses. An index lesion within the right lobe centrally measures 25 mm, compared to 27 mm the prior study. Gallbladder: Unremarkable. Spleen: The spleen is enlarged measuring 15.2 cm. There is a stable nonspecific 7 mm lower pole splenic hypodensity Pancreas: Unremarkable. Adrenal glands: Unremarkable. Kidneys: There is stable bilateral renal cortical cysts measuring up to 15 mm in diameter Bowel: There are no transition zones indicate bowel obstruction. There is extensive colonic diverticulosis. There are no acute peridiverticular inflammatory changes. The appendix appears normal Peritoneum: There is no intraperitoneal free air or abdominal ascites. Vasculature: The abdominal aorta is normal in course and caliber. Adenopathy: None. Pelvic viscera: The prostate is mildly enlarged Skeletal structures: Since the prior study, the patient developed multiple sclerotic skeletal lesions consistent with bony metastasis. IMPRESSION: 1. Interval decrease in the size of multiple pulmonary nodules, consistent with improving metastasis 2. Multiple hypodense hepatic masses consistent with metastatic disease. Overall these appear minimally diminished in volume 3. Interval development of multiple sclerotic skeletal lesions consistent with skeletal metastasis 4. Splenomegaly 5. Extensive diverticulosis. 6. Mild prostamegaly Electronically signed by: Santana Negron M.D. 11/22/2017 10:51 AM Dictated Date/Time: 11/22/2017 10:42 AM
--- NOTE | 2017-11-22 11:21 | DIAGNOSTIC IMAGING REPORT ---
CHEST CT WITH CONTRAST CT DOSE: HISTORY: SMALL CELL cancer OF RT LUNG, LIVER METASTASES TECHNIQUE: Multiaxial CT images of the chest were performed following the intravenous administration of contrast. A dose lowering technique was utilized adhering to the principles of ALARA. COMPARISON: Chest CT 08/14/2017. FINDINGS: The central airways are patent. No pleural effusions. No pneumothorax. Calcified granuloma seen within the right middle lobe. Multiple bilateral pulmonary nodules are again noted. These are decreased in size in the interval. For comparative purposes the dominant right retrohilar nodular measures 2.1 x 1.5 cm. This previously measured 2.8 x 2.4 cm. The invasion into the bronchus intermedius has also significantly improved. Dominant nodule within the left lung is seen within the lower lobe and measures 1 cm, previously measuring 1.7 cm. No new pulmonary nodules identified. There are few scattered cirrhotic metastases seen within the sternum, thoracic spine vertebral bodies, left scapula. These are new from the prior study. Stable lucent focus within the C7 vertebral body. The central pulmonary arteries are patent. Normal caliber thoracic aorta. The heart is normal in size. Multiple hepatic metastatic lesions appear to have slightly decreased in size. Normal adrenal glands. Decrease in size in the mediastinal lymph nodes. For example, the dominant periesophageal lymph node currently measures 1 cm, previous measuring 1.6 cm. IMPRESSION: 1. Interval decrease in size in the 4 nodules and mediastinal lymph nodes consistent with improvement in metastatic disease. 2. The multiple hepatic metastatic lesions also appeared of decreased in size. 3. Interval development of a few scattered sclerotic lesions within the osseous structures consistent with metastatic disease. Electronically signed by: Roger Torres M.D. 11/22/2017 11:20 AM Dictated Date/Time: 11/22/2017 11:02 AM
== END | disposition home or self-care (01) ==
LOC: C.CTS 09:36
PROVIDERS: ATTEND Physician Assistant
DX: C34.91 Malignant neoplasm of unspecified part of right bronchus or lung (principal); C78.7 Secondary malignant neoplasm of liver and intrahepatic bile duct; N40.0 Benign prostatic hyperplasia without lower urinary tract symptoms; R16.1 Splenomegaly, not elsewhere classified; K57.90 Diverticulosis of intestine, part unspecified, without perforation or abscess without bleeding

== ENCOUNTER 2017-12-05 22:20 | Inpatient (IN) | payer OTHER ==
[~2017-12-05] VITALS: Ht 172.7 cm; Wt 64.4 kg
[~2017-12-05 22:20] MED LIST changes: -ACET-1256 PO; -DICL1GEL12 TD; -FLUO10CA48 PO; -LORA-741 PO; -ONDA8TAB6 PO; -PANT40TA PO
[2017-12-05] MEDS ORDERED: SODIUM CHLORIDE 0.9% 500ML 500 ML IV STA (22:36)
[2017-12-05] MEDS ORDERED: ACET-1256 PO (22:54)
[2017-12-05] MEDS ORDERED: ALL300 PO (22:55)
[2017-12-05] MEDS ORDERED: DICL1GEL12 TD (22:58)
[2017-12-05] MEDS ORDERED: FLUO10CA48 PO (23:00)
[2017-12-05] MEDS ORDERED: LORA-741 PO (23:01)
[2017-12-05] MEDS ORDERED: PANT40TA PO (23:03)
[2017-12-05] MEDS ORDERED: ONDA-170 PO (23:05)
[2017-12-05 23:19] LABS: HEMATOCRIT 22.3 % (42-52); HEMOGLOBIN 7.9 g/dL (14.0-18.0); MEAN CELL VOLUME 88.1 fL (80-100); MEAN CORPUSCULAR HEMOGLOBIN 31.2 pg (25-34); MEAN CORPUSCULAR HGB CONC 35.4 g/dl (32-36); RED CELL DISTRIBUTION WIDTH CV 17.4 % (11.5-14.5); RED CELL DISTRIBUTION WIDTH SD 55.7 fL (36.4-46.3); WHITE BLOOD COUNT 4.51 K/uL (4.8-10.8)
[2017-12-05] MEDS ORDERED: ALUMINUM/MAGNESIUM SUSP 30 ML UDC PO STA (23:26)
[2017-12-05] MEDS ORDERED: LIDOCAINE HCL 2% VISC SOLN 20 ML UDC PO STA (23:26)
[2017-12-05 23:40] LABS: ALBUMIN 2.9 gm/dl (3.4-5.0); ALT/SGPT 24 U/L (12-78); BLOOD UREA NITROGEN 37 mg/dl (7-18); CALCIUM 8.4 mg/dl (8.5-10.1); CARBON DIOXIDE 25 mmol/L (21-32); CREATININE 1.21 mg/dl (0.60-1.40); GLUCOSE 162 mg/dl (70-99); POTASSIUM 4.2 mmol/L (3.5-5.1); SODIUM 130 mmol/L (136-145)
[2017-12-05 23:51] LABS: ALKALINE PHOSPHATASE 77 U/L (45-117); AST/SGOT 18 U/L (15-37); CKMB < 0.5 ng/ml (0.5-3.6); TOTAL PROTEIN 6.5 gm/dl (6.4-8.2)
[2017-12-06] VITALS (15 sets, daily range): BP systolic 100–145; BP diastolic 66–80; PULSE 67–104; TEMP 36.5–37.9; O2SAT 92–97; Ht 172.7 cm; Wt 64.4 kg
[2017-12-06 00:01] LABS: MEAN PLATELET VOLUME 9.7 fL (7.4-10.4); PLATELET COUNT 74 K/uL (130-400)
[2017-12-06 00:04] LABS: BASO % 0.2 %; BASO ABS # 0.01 K/uL (0-0.2); EOS % 0.2 %; EOS ABS # 0.01 K/uL (0-0.5); IG# 0.04 K/uL (0.00-0.02); LYMPH % 2.2 %; MONO % 0.4 %; MONO ABS # 0.02 K/uL (0.11-0.59); NEUT % 96.1 %; NEUT ABS # 4.33 K/uL (1.4-6.5)
--- NOTE | 2017-12-06 02:15 | EMERGENCY ROOM VISIT NOTE ---
ED Visit Note First contact with patient: 22:29 The patient was seen and examined with Waqar. I agree with the history, physical and findings. Please see the note for disposition and details.
[2017-12-06] MEDS ORDERED: DICLOFENAC SOD 1% GEL 100 GM TUBE EXT PRN (02:45)
[2017-12-06] MEDS ORDERED: ACETAMINOPHEN IV 100 ML IV PRN (02:45)
[2017-12-06] MEDS ORDERED: ACETAMINOPHEN 325 MG TAB PO PRN (02:45)
[2017-12-06] MEDS ORDERED: LORAZEPAM 0.5 MG TAB PO PRN (02:45)
[2017-12-06] MEDS ORDERED: ONDANSETRON 8 MG TAB PO PRN (02:45)
--- NOTE | 2017-12-06 03:23 | EMERGENCY ROOM VISIT NOTE ---
History First contact with patient: 22:29 Chief Complaint: WEAKNESS Stated Complaint: LUNG CANCER, WEAKNESS, HOARSNESS History of Present Illness The patient is a 87 year old male who presents to the Emergency Room with complaints of generalized weakness, dysphagia and hoarseness for the past week that is steadily getting worse who is currently receiving chemotherapy for lung carcinoma. He follows with Dr. Bowen. He receives chemotherapy Tuesday and then has 18 days off. He received this last week. Patient denies chest pain, dyspnea, abdominal pain, fevers, cough, congestion, nausea, vomiting, diarrhea, back pain, urinary symptoms. No blood or black in the stool. No history of blood transfusions in the past. Patient states he is having problems swallowing solid foods. He can swallow liquids and soft foods. Review of Systems An 10 system review of systems was completed with positives and pertinent negatives listed in the HPI. Past Medical/Surgical History Medical Problems: (1) Colitis (2) DIARRHEA, ? METASTATIC DISEASE (3) Metastatic lung cancer (metastasis from lung to other site) (4) Symptomatic anemia (5) Thrombocytosis (6) UTI (urinary tract infection) (7) Vitiligo Surgical Problems: (1) H/O prior ablation treatment (2) H/O prostatectomy Family History Cancer Hypertension No significant family history Stroke Social History Smoking Status: Never Smoker Alcohol Use: occasionally Marital Status: Occupation Status: retired Current/Historical Medications Scheduled Allopurinol (Allopurinol), 300 MG PO DAILY Aspirin (Aspirin), 81 MG PO QAM Finasteride (Proscar), 5 MG PO QAM Flecainide (Tambocor), 100 MG PO BID Fluoxetine (Prozac), 10 MG PO DAILY Metoprolol Tartrate (Lopressor), 25 MG PO BID Pantoprazole (Protonix), 40 MG PO QAM Triamcinolone Acet (Triamcinolone Acetonide), 1 APPLN TOP BID [Boost], 1 CAN PO BID Scheduled PRN Acetaminophen (Tylenol), 500 MG PO Q4H PRN for Pain Diclofenac Sodium (Topical) (Voltaren 1% Top Gel), 1 APPLN TD Q6H PRN for Pain Diphenhydramine Hcl (Benadryl Allergy), 1 TAB PO QAM PRN for ALLERGIES Lorazepam (Ativan), 0.5 MG PO BID PRN for Anxiety Methylcellulose (Laxative) (Citrucel), 500 MG PO for Constipation Ondansetron Hcl (Zofran), 8 MG PO Q8 PRN for Nausea Physical Exam Vital Signs Date Time Temp Pulse Resp B/P (MAP) Pulse Ox O2 Delivery O2 Flow Rate FiO2 12/06/17 02:38 105 28 153/81 93 Room Air 12/06/17 02:12 108 12/06/17 01:42 107 20 110/88 98 Room Air 12/05/17 23:51 99 22 127/75 93 Room Air 12/05/17 23:02 93 Room Air 12/05/17 22:47 94 Room Air 12/05/17 22:39 99 12/05/17 22:24 36.6 86 20 110/73 91 Room Air Physical Exam VITALS: Vitals are noted on the nurse's note and reviewed by myself. Vital signs stable. GENERAL: Frail appearing elderly male, in no acute distress, nondiaphoretic SKIN: The skin was without rashes, erythema, edema. HEAD: Normocephalic atraumatic. EARS: External auditory canals clear, tympanic membranes pearly sanchez without erythema or effusion bilaterally. EYES: Pupils equal round and reactive to light and accommodation. Conjunctivae without injection, sclerae without icterus. Extraocular movements intact. NOSE: Patent, turbinates without inflammation or discharge. No sinus tenderness. MOUTH: Mucous membranes mildly dry. Pharynx without erythema or exudate. Uvula midline. Airway patent. Tongue does not deviate. NECK: Supple without nuchal rigidity. No lymphadenopathy. No thyromegaly. Cervical spine is nontender. No JVD. HEART: Regular rate and rhythm LUNGS: Clear to auscultation bilaterally without wheezes, rales or rhonchi. No retractions or accessory muscle use. ABDOMEN: Positive bowel sounds x 4. Normal tympanic percussion. Soft, nontender, without masses or organomegaly. Polk sign negative. No guarding or rebound tenderness. No CVA tenderness MUSCULOSKELETAL: No muscle atrophy, erythema, or edema noted. NEURO: Patient was alert and oriented to person place and time. Normal sensation to light and sharp touch. No focal neurological deficits. Medical Decision & Procedures Laboratory Results 12/05/17 23:06 Red Blood Count 2.53, Mean Corpuscular Volume 88.1, Mean Corpuscular Hemoglobin 31.2, Mean Corpuscular Hemoglobin Concent 35.4, Mean Platelet Volume 9.7, Neutrophils (%) (Auto) 96.1, Lymphocytes (%) (Auto) 2.2, Monocytes (%) (Auto) 0.4, Eosinophils (%) (Auto) 0.2, Basophils (%) (Auto) 0.2, Neutrophils # (Auto) 4.33, Lymphocytes # (Auto) 0.10, Monocytes # (Auto) 0.02, Eosinophils # (Auto) 0.01, Basophils # (Auto) 0.01 12/05/17 23:06 Test 12/05/17 23:06 12/05/17 23:24 12/06/17 00:53 White Blood Count 4.51 K/uL (4.8-10.8) Red Blood Count 2.53 M/uL (4.7-6.1) Hemoglobin 7.9 g/dL (14.0-18.0) Hematocrit 22.3 % (42-52) Mean Corpuscular Volume 88.1 fL (80-100) Mean Corpuscular Hemoglobin 31.2 pg (25-34) Mean Corpuscular Hemoglobin Concent 35.4 g/dl (32-36) Platelet Count 74 K/uL (130-400) Mean Platelet Volume 9.7 fL (7.4-10.4) Neutrophils (%) (Auto) 96.1 % Lymphocytes (%) (Auto) 2.2 % Monocytes (%) (Auto) 0.4 % Eosinophils (%) (Auto) 0.2 % Basophils (%) (Auto) 0.2 % Neutrophils # (Auto) 4.33 K/uL (1.4-6.5) Lymphocytes # (Auto) 0.10 K/uL (1.2-3.4) Monocytes # (Auto) 0.02 K/uL (0.11-0.59) Eosinophils # (Auto) 0.01 K/uL (0-0.5) Basophils # (Auto) 0.01 K/uL (0-0.2) RDW Standard Deviation 55.7 fL (36.4-46.3) RDW Coefficient of Variation 17.4 % (11.5-14.5) Immature Granulocyte % (Auto) 0.9 % Immature Granulocyte # (Auto) 0.04 K/uL (0.00-0.02) Platelet Estimate DECREASED Large Platelets 1+ Ovalocytes 1+ Anion Gap 8.0 mmol/L (3-11) Est Creatinine Clear Calc Drug Dose 43.2 ml/min Estimated GFR () 62.9 Estimated GFR (Non- 54.3 BUN/Creatinine Ratio 30.2 (10-20) Calcium Level 8.4 mg/dl (8.5-10.1) Magnesium Level 1.7 mg/dl (1.8-2.4) Total Bilirubin 0.9 mg/dl (0.2-1) Direct Bilirubin 0.3 mg/dl (0-0.2) Aspartate Amino Transf (AST/SGOT) 18 U/L (15-37) Alanine Aminotransferase (ALT/SGPT) 24 U/L (12-78) Alkaline Phosphatase 77 U/L (45-117) Total Creatine Kinase 31 U/L (39-308) Creatine Kinase MB < 0.5 ng/ml (0.5-3.6) Creatine Kinase MB Ratio (0-3.0) Troponin I < 0.015 ng/ml (0-0.045) Total Protein 6.5 gm/dl (6.4-8.2) Albumin 2.9 gm/dl (3.4-5.0) Thyroid Stimulating Hormone (TSH) 0.717 uIu/ml (0.300-4.500) Bedside Troponin I < 0.030 ng/ml (0-0.045) Urine Color YELLOW Urine Appearance CLEAR (CLEAR) Urine pH 5.5 (4.5-7.5) Urine Specific [place] 1.045 (1.000-1.030) Urine Protein TRACE (NEG) Urine Glucose (UA) NEG (NEG) Urine Ketones NEG (NEG) Urine Occult Blood NEG (NEG) Urine Nitrite NEG (NEG) Urine Bilirubin NEG (NEG) Urine Urobilinogen NEG (NEG) Urine Leukocyte Esterase NEG (NEG) Urine WBC (Auto) 1-5 /hpf (0-5) Urine RBC (Auto) 5-10 /hpf (0-4) Urine Hyaline Casts (Auto) 1-5 /lpf (0-5) Urine Epithelial Cells (Auto) 5-10 /lpf (0-5) Urine Bacteria (Auto) NEG (NEG) Medications Administered Medications (Trade) Dose Ordered Sig/Lisandro Route Start Time Stop Time Status Last Admin Dose Admin Sodium Chloride 500 ml @ 999 mls/hr Q31M STAT IV 12/05/17 22:36 12/05/17 23:06 DC 12/05/17 22:36 999 MLS/HR Lidocaine HCl (Viscous Lidocaine 2% Soln) 10 ml NOW STAT PO 12/05/17 23:26 12/05/17 23:28 DC 12/05/17 23:50 10 ML Al Hydroxide/Mg Hydroxide (Maalox Susp) 30 ml NOW STAT PO 12/05/17 23:26 12/05/17 23:28 DC 12/05/17 23:51 30 ML ED Course Prior records/ancillary studies reviewed and summarized above. Nursing notes reviewed. Additional history obtained from family The patient's history was concerning for weakness and dysphasia Differential diagnosis: Etiologies such as progression of cancer, metabolic, infection, hypo/ hyperglycemia, electrolyte abnormalities, cardiac sources, intracerebral event, toxicologic, neurologic, as well as others were entertained. Physical examination: As above. ER treatment provided: IV Lock GI cocktail, normal saline On reassessment the patient felt better. Diagnostics interpretation by me: ECG: Normal sinus, first-degree AV block, poor baseline, no acute ST-T wave changes, rate of 96. Impression normal sinus rhythm with first-degree AV block interpreted by myself The labs revealed negative troponin pancytopenia, H&H lower than baseline Imaging studies: Chest x-ray with no acute consolidation, pneumothorax or free of my interpretation Neck CT was reviewed and read by radiology with possible sinusitis Consultation: A consultation was placed with the hospitalist, Dr. Suarez. The case was discussed and diagnostics were reviewed. The patient was evaluated in the ER for further treatment. Exam and history seem consistent with worsening anemia. Patient's Hemoccult was negative. He was typed and screened for blood. He was consented to this. Patient agrees to treatment plan of admission. Medicine will evaluate. Patient has small cell lung carcinoma. PET scan was reviewed. He had this done yesterday. I believe the patient's weakness is secondary to the severe anemia. He had no acute active bleeding on clinical exam. By the evaluation outlined above emergent etiologies such as electrolyte abnormalities, cardiac sources, intracerebral event, toxologic, neurologic, abnormalities blood glucose , as well as others were deemed relatively unlikely. Patient's dysphagia felt much better with GI cocktail. This could be reflux related. The pt informed about the findings as listed above. All questions were answered and pleased with the treatment. Case reviewed with my attending The chart was completed utilizing [employer] Speech voice recognition software. Grammatical errors, random word insertions, pronoun errors, and incomplete sentences are an occassional consequence of this system due to software limitations, ambient noise, and hardware issues. Any formal questions or concerns about the content, text, or information contained within the body of this dictation should be directly addressed to the physician nurse practitioner physicians assistant for clarification. Medical Decision As above Medication Reconcilliation Current Medication List: was personally reviewed by me Blood Pressure Screening Patient's blood pressure: Normal blood pressure Impression Primary Impression: Pancytopenia Additional Impression: Dysphasia Departure Information Dispostion Being Evaluated By Hospitalist Condition FAIR Referrals Hernesto Jorgensen M.D. (PCP) Patient Instructions My [facility] Problem Qualifiers
[2017-12-06] MEDS: CEFTRIAXONE SOD INJ 1 GM in DEXTROSE 5% ADD-VANTAGE 50ML 50 ML IV SCH (04:04)
--- NOTE | 2017-12-06 06:19 | History and Physical ---
History & Physical Date & Time of Service: Dec 06, 2017 at 06:06 Chief Complaint: Metastatic Lung Cancer, Symptomatic Anemia Primary Care Physician: Hernesto Jorgensen M.D. History of Present Illness Source: patient, family, hospital records The patient is an 87-year-old male who presents to the emergency department with generalized weakness, hoarseness, intermittent cough and sore throat over the past week. He receives chemotherapy from Dr.Nilesh Bowen Tuesday, Tuesday and Tuesday, and then has 18 days off. He did receive chemotherapy last week. His family reports that he has had an intermittent cough with chest congestion. Family History Cancer Hypertension No significant family history Stroke Social History Smoking Status: Former Smoker Smokeless Tobacco Use: No Alcohol Use: none Drug Use: none Marital Status: Occupational Status: retired Immunizations History of Influenza Vaccine: Unknown History of Tetanus Vaccine?: Unknown History of Pneumococcal: Unknown History of Hepatitis B Vaccine: Unknown Allergies Coded Allergies: Sulfa Antibiotics (Verified Adverse Reaction, Unknown, JOINT PAIN, 11/14/17 ) Home Medications Scheduled Allopurinol (Allopurinol), 300 MG PO DAILY Aspirin (Aspirin), 81 MG PO QAM Finasteride (Proscar), 5 MG PO QAM Flecainide (Tambocor), 100 MG PO BID Fluoxetine (Prozac), 10 MG PO DAILY Metoprolol Tartrate (Lopressor), 25 MG PO BID Pantoprazole (Protonix), 40 MG PO QAM Triamcinolone Acet (Triamcinolone Acetonide), 1 APPLN TOP BID [Boost], 1 CAN PO BID Scheduled PRN Acetaminophen (Tylenol), 500 MG PO Q4H PRN for Pain Diclofenac Sodium (Topical) (Voltaren 1% Top Gel), 1 APPLN TD Q6H PRN for Pain Diphenhydramine Hcl (Benadryl Allergy), 1 TAB PO QAM PRN for ALLERGIES Lorazepam (Ativan), 0.5 MG PO BID PRN for Anxiety Methylcellulose (Laxative) (Citrucel), 500 MG PO for Constipation Ondansetron Hcl (Zofran), 8 MG PO Q8 PRN for Nausea Review of Systems The patient denies chest pain, palpitations, lower extremity swelling, fevers, chills, sweats, nausea, vomiting, diarrhea , constipation, abdominal pain, pelvic pain, blood in urine or stool, dysuria, urinary frequency or urgency, loss of consciousness, rash, abnormal bruising or bleeding, focal weakness, numbness or tingling in arms or legs, back or neck pain, or night sweats. The review of systems is otherwise negative other than for that already noted above, and at least 10 systems have been reviewed. Physical Exam Vital Signs Date Time Temp Pulse Resp B/P (MAP) Pulse Ox O2 Delivery O2 Flow Rate FiO2 12/06/17 03:25 36.9 98 20 145/80 92 Room Air 12/06/17 02:38 105 28 153/81 93 Room Air 12/06/17 02:12 108 12/06/17 01:42 107 20 110/88 98 Room Air 12/05/17 23:51 99 22 127/75 93 Room Air 12/05/17 23:02 93 Room Air 12/05/17 22:47 94 Room Air 12/05/17 22:39 99 12/05/17 22:24 36.6 86 20 110/73 91 Room Air The patient is awake, alert and oriented 3, is slow to respond, normocephalic and atraumatic, lying in bed and in no acute distress. HEENT--PERRL, EOMI, mucous membranes and oropharynx dry. Neck--supple. No JVD. No bruits. Thyroid normal, trachea midline, no adenopathy. Heart--, tachycardic and regular. No murmurs, rubs or gallops. Lungs-- few coarse breath sounds bilaterally, no respiratory distress, no accessory muscle use. Abdomen--normal bowel sounds and soft. Nontender. Nondistended, no hernias or masses. Extremities--no cyanosis or clubbing. There is no edema. There are good distal pulses b/l. Dermatologic--normal skin turgor, normal color, no abnormal lymph nodes, no rash. Neurologic--cranial nerves II through XII grossly intact. Rheumatologic-range of motion limited due to fatigue Psychiatric--appears fatigued. Diagnostics Laboratory Results Results Past 24 Hours Test 12/05/17 23:06 12/05/17 23:24 12/06/17 00:53 Range/Units White Blood Count 4.51 4.8-10.8 K/uL Red Blood Count 2.53 4.7-6.1 M/uL Hemoglobin 7.9 14.0-18.0 g/dL Hematocrit 22.3 42-52 % Mean Corpuscular Volume 88.1 80-100 fL Mean Corpuscular Hemoglobin 31.2 25-34 pg Mean Corpuscular Hemoglobin Concent 35.4 32-36 g/dl Platelet Count 74 130-400 K/uL Mean Platelet Volume 9.7 7.4-10.4 fL Neutrophils (%) (Auto) 96.1 % Lymphocytes (%) (Auto) 2.2 % Monocytes (%) (Auto) 0.4 % Eosinophils (%) (Auto) 0.2 % Basophils (%) (Auto) 0.2 % Neutrophils # (Auto) 4.33 1.4-6.5 K/uL Lymphocytes # (Auto) 0.10 1.2-3.4 K/uL Monocytes # (Auto) 0.02 0.11-0.59 K/uL Eosinophils # (Auto) 0.01 0-0.5 K/uL Basophils # (Auto) 0.01 0-0.2 K/uL RDW Standard Deviation 55.7 36.4-46.3 fL RDW Coefficient of Variation 17.4 11.5-14.5 % Immature Granulocyte % (Auto) 0.9 % Immature Granulocyte # (Auto) 0.04 0.00-0.02 K/uL Platelet Estimate DECREASED Large Platelets 1+ Ovalocytes 1+ Sodium Level 130 136-145 mmol/L Potassium Level 4.2 3.5-5.1 mmol/L Chloride Level 97 98-107 mmol/L Carbon Dioxide Level 25 21-32 mmol/L Anion Gap 8.0 3-11 mmol/L Blood Urea Nitrogen 37 7-18 mg/dl Creatinine 1.21 0.60-1.40 mg/dl Est Creatinine Clear Calc Drug Dose 43.2 ml/min Estimated GFR () 62.9 Estimated GFR (Non- 54.3 BUN/Creatinine Ratio 30.2 10-20 Random Glucose 162 70-99 mg/dl Calcium Level 8.4 8.5-10.1 mg/dl Magnesium Level 1.7 1.8-2.4 mg/dl Total Bilirubin 0.9 0.2-1 mg/dl Direct Bilirubin 0.3 0-0.2 mg/dl Aspartate Amino Transf (AST/SGOT) 18 15-37 U/L Alanine Aminotransferase (ALT/SGPT) 24 12-78 U/L Alkaline Phosphatase 77 45-117 U/L Total Creatine Kinase 31 39-308 U/L Creatine Kinase MB < 0.5 0.5-3.6 ng/ml Creatine Kinase MB Ratio 0-3.0 Troponin I < 0.015 0-0.045 ng/ml Total Protein 6.5 6.4-8.2 gm/dl Albumin 2.9 3.4-5.0 gm/dl Thyroid Stimulating Hormone (TSH) 0.717 0.300-4.500 uIu/ml Bedside Troponin I < 0.030 0-0.045 ng/ml Urine Color YELLOW Urine Appearance CLEAR CLEAR Urine pH 5.5 4.5-7.5 Urine Specific [place] 1.045 1.000-1.030 Urine Protein TRACE NEG Urine Glucose (UA) NEG NEG Urine Ketones NEG NEG Urine Occult Blood NEG NEG Urine Nitrite NEG NEG Urine Bilirubin NEG NEG Urine Urobilinogen NEG NEG Urine Leukocyte Esterase NEG NEG Urine WBC (Auto) 1-5 0-5 /hpf Urine RBC (Auto) 5-10 0-4 /hpf Urine Hyaline Casts (Auto) 1-5 0-5 /lpf Urine Epithelial Cells (Auto) 5-10 0-5 /lpf Urine Bacteria (Auto) NEG NEG Impression Assessment and Plan 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 Bowen/anemia with hemoglobin 7.9/thrombocytopenia with platelets 74-- Admit to oncology unit. Transfuse 1 unit PRBCs tonight. Repeat CBCD in the a.m. Upper respiratory infection-- Place on ceftriaxone 1 g IV daily. Duonebs every 4 hours while awake and every 2 hours when necessary. Dysrhythmia/hypertension/hypomagnesemia-- Continue flecainide 100 mg p.o. twice daily, metoprolol tartrate 25 mg p.o. twice daily and aspirin 81 mg daily. Give mag sulfate 1 g IV. Gout-- Continue allopurinol 300 mg p.o. daily GERD-- Continue pantoprazole 40 mg every morning Depression-- Continue Prozac 10 mg daily BPH-- Continue finasteride 5 mg every morning Advanced Directives Existing Living Will: Yes Existing Power of Cancer Genetic Counselor: Yes Resuscitation Status VTE Prophylaxis Will order VTE Prophylaxis: Yes Social Service Consult Cancer Patient Under [place]
[2017-12-06] MEDS ORDERED: MAGNESIUM SULFATE 1GM / D5W 1 GM in PREMIXED IN D5W 100 ML IV STA (06:20)
--- NOTE | 2017-12-06 07:01 | DIAGNOSTIC IMAGING REPORT ---
CHEST 2 VIEWS ROUTINE CLINICAL HISTORY: Weakness. Cough. COMPARISON STUDY: November 14, 2017 FINDINGS: The heart is mildly enlarged. There is aortic tortuosity/ectasia. There is a left subclavian A-Port catheter present. There is slight interstitial thickening. There is focal airspace opacification visualized in the lateral view posteriorly. It is difficult to determine whether this is in the left lower lobe or right lower lobe. IMPRESSION: Focal pulmonary consolidation involving one of the posterior lung bases as visualized on the lateral view. This is suspicious for a small focal pneumonia. Clinical and radiographic follow-up is recommended. Electronically signed by: Santana Negron M.D. 12/06/2017 7:00 AM Dictated Date/Time: 12/06/2017 6:58 AM
[2017-12-06] MEDS: ALBUT/IPRATROP 3MG/0.5MG NEB 3 ML VIAL INH SCH ×4 (07:19→19:06)
[2017-12-06] MEDS: FLUOXETINE HCL 10 MG CAP PO SCH (07:42)
[2017-12-06] MEDS: METOPROLOL TARTRATE 25 MG TAB PO SCH ×2 (07:42→20:37)
[2017-12-06] MEDS: FINASTERIDE 5 MG TAB PO SCH (07:42)
[2017-12-06] MEDS: FLECAINIDE ACETATE 100 MG TAB PO SCH ×2 (07:43→20:36)
[2017-12-06] MEDS: PANTOprazole SOD 40 MG TAB PO SCH (07:43)
[2017-12-06] MEDS: ALLOPURINOL 300 MG TAB PO SCH (07:43)
[2017-12-06] MEDS: CIPROFLOXACIN HCL 0.3% OP SOLN 2.5 ML BTL OPL SCH ×4 (07:43→20:35)
[2017-12-06] MEDS: ASPIRIN 81 MG ECTAB PO SCH (07:43)
[2017-12-06] MEDS: TRIAMCINOLONE ACET 0.1% OINT 15 GM TUBE TOP SCH ×2 (07:44→20:37)
--- NOTE | 2017-12-06 07:59 | DIAGNOSTIC IMAGING REPORT ---
CT SCAN OF THE NECK WITH IV CONTRAST CLINICAL HISTORY: Dysphagia. COMPARISON STUDY: CT of the cervical spine dated 11/15/2017. Nuclear bone scan dated 12/05/2017. TECHNIQUE: Following the IV administration of 92 cc of Optiray 320, CT scan of the soft tissues of the neck was performed from the skull base to the upper chest. Images are reviewed in the axial, sagittal, and coronal planes. IV contrast was administered without complication. A dose lowering technique was utilized adhering to the principles of ALARA. CT DOSE: 369.59 mGy.cm FINDINGS: Pharynx: The nasopharynx, oropharynx, and laryngeal pharynx are normal in appearance. The pharyngeal airway is widely patent. There is no evidence of mass lesion. The vocal cords are symmetric. The parapharyngeal fat is well maintained. The prevertebral/retropharyngeal soft tissues are within normal limits. No fluid collection is identified. Lymphadenopathy: No cervical lymphadenopathy is seen. Thyroid: Normal in size and attenuation. Salivary glands: The parotid and submandibular glands are within normal limits. Brain parenchyma: The visualized brain parenchyma at the skull base is normal in appearance noting age-related involutional change. Vascular structures: A left internal jugular central venous infusion port is in place. The carotid arteries and jugular veins are widely patent. Atherosclerotic calcification is seen in the carotid bulbs. Skeletal structures: The skeletal structures are osteopenic. Imaged portions of the calvarium at the skull base are within normal limits. The cervical spine appears intact. An indeterminant sclerotic focus is seen in the body of C2. Sinuses and mastoids: Air-fluid levels and mucosal thickening are seen within the maxillary antra. Moderate mucosal thickening is also seen throughout the ethmoid sinuses. Mild mucosal thickening is seen within the frontal and sphenoid sinuses. The mastoid air cells are well pneumatized. Orbits: The bony orbits are intact. Orbital contents are normal in appearance noting bilateral ocular lens implants. Lung apices: Visualized apical lung parenchyma is clear. IMPRESSION: 1. Unremarkable CT scan of the soft tissues of the neck. 2. Paranasal sinus disease as above. 3. A sclerotic lesion is seen in the body of C2 and likely represents a focus of metastatic disease. Electronically signed by: Gaston Barcenas M.D. 12/06/2017 7:58 AM Dictated Date/Time: 12/06/2017 7:52 AM
[2017-12-06] MEDS ORDERED: BOOST VANILLA PO SCH (08:00)
[2017-12-06] MEDS ORDERED: PANTOprazole INJ 40 MG in SYRINGE 0 ML IV SCH (11:00)
[2017-12-06 13:52] LABS: MEAN CORPUSCULAR HGB CONC 35.4 g/dl (32-36)
[2017-12-06 13:57] LABS: HEMATOCRIT 22.9 % (42-52); HEMOGLOBIN 8.1 g/dL (14.0-18.0); MEAN CELL VOLUME 87.4 fL (80-100); MEAN CORPUSCULAR HEMOGLOBIN 30.9 pg (25-34); RED CELL DISTRIBUTION WIDTH CV 17.7 % (11.5-14.5); RED CELL DISTRIBUTION WIDTH SD 56.7 fL (36.4-46.3); WHITE BLOOD COUNT 2.59 K/uL (4.8-10.8)
[2017-12-06 14:11] LABS: CALCIUM 8.9 mg/dl (8.5-10.1); CREATININE 0.99 mg/dl (0.60-1.40); POTASSIUM 3.6 mmol/L (3.5-5.1)
[2017-12-06 14:15] LABS: PLATELET COUNT 45 K/uL (130-400)
[2017-12-06 14:16] LABS: IG# 0.01 K/uL (0.00-0.02); LYMPH % 7.3 %; LYMPH ABS # 0.19 K/uL (1.2-3.4); MONO % 0.8 %; MONO ABS # 0.02 K/uL (0.11-0.59); NEUT % 91.5 %; NEUT ABS # 2.37 K/uL (1.4-6.5)
--- NOTE | 2017-12-06 16:34 | Progress Note ---
Progress Note Date of Service Dec 06, 2017. Progress Note Follow up note, patient admitted after midnight Doing well, feeling better after RBC transfusion. Had a low grade temperature during transfusion, no true fever. 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 Bowen/anemia with hemoglobin 7.9/thrombocytopenia with platelets 74-- Hb up slightly to 8.1 after one unit transfused platelets down in the 40's continue to monitor closely transfuse further PRBC as needed Pneumonia-- feeling better on Rocephin IV, will continue Duonebs every 4 hours while awake and every 2 hours when necessary. Dysrhythmia/hypertension/hypomagnesemia-- Continue flecainide 100 mg p.o. twice daily, metoprolol tartrate 25 mg p.o. twice daily and aspirin 81 mg daily. Give mag sulfate 1 g IV. Gout-- Continue allopurinol 300 mg p.o. daily GERD-- Continue pantoprazole 40 mg every morning Depression-- Continue Prozac 10 mg daily BPH-- Continue finasteride 5 mg every morning check labs in the AM
[2017-12-06] MEDS: ONDANSETRON 8MG OD TAB PO PRN (18:14)
[2017-12-06] MEDS: BOOST VANILLA PO SCH (20:35)
[2017-12-07] VITALS (21 sets, daily range): BP systolic 103–130; BP diastolic 66–81; PULSE 68–88; TEMP 36.2–37.7; O2SAT 90–98
[2017-12-07] MEDS: CEFTRIAXONE SOD INJ 1 GM in DEXTROSE 5% ADD-VANTAGE 50ML 50 ML IV SCH (04:40)
[2017-12-07 06:11] LABS: HEMATOCRIT 21.6 % (42-52); HEMOGLOBIN 7.3 g/dL (14.0-18.0); MEAN CELL VOLUME 88.5 fL (80-100); MEAN CORPUSCULAR HEMOGLOBIN 29.9 pg (25-34); MEAN CORPUSCULAR HGB CONC 33.8 g/dl (32-36); PLATELET COUNT 51 K/uL (130-400); RED CELL DISTRIBUTION WIDTH CV 17.7 % (11.5-14.5); RED CELL DISTRIBUTION WIDTH SD 58.4 fL (36.4-46.3); WHITE BLOOD COUNT 1.57 K/uL (4.8-10.8)
[2017-12-07 06:16] LABS: INR 1.2 (0.9-1.1)
[2017-12-07 06:20] LABS: EOS % 0.6 %; EOS ABS # 0.01 K/uL (0-0.5); IG# 0.01 K/uL (0.00-0.02); LYMPH % 10.8 %; LYMPH ABS # 0.17 K/uL (1.2-3.4); MONO % 1.9 %; MONO ABS # 0.03 K/uL (0.11-0.59); NEUT % 86.1 %; NEUT ABS # 1.35 K/uL (1.4-6.5)
[2017-12-07 06:25] LABS: PTT PATIENT 70.3 SECONDS (21.0-31.0)
--- NOTE | 2017-12-07 06:37 | Clinical Documentation Query ---
ABIGAIL Jameson : CLINICAL DOCUMENTATION QUERY Patient is an 87 year old male admitted for evaluation of weakness, hoarseness, intermittent cough and sore throat. Noted to have as recently as last week undergone chemotherapy treatment for metastatic lung cancer. Documentation includes anemia and thrombocytopenia. In fact, patient is pancytopenic. As appropriate, consider documentation as suggested below in order to capture the severity of illness and associated risk of mortality. Thank you. In your clinical opinion is this patient being managed for: ( x ) Antineoplastic chemotherapy induced pancytopenia ( ) Not Agree ( ) Other explanation of clinical findings (Please Explain) ( ) Unable to determine (Please Define) ( ) Need to Discuss The medical record reflects the following clinical findings, treatment, and risk factors. Clinical Indicators: As above Treatment: Serial hematology, transfusion of a unit of PRBC's Risk Factors: Chemotherapy administration Please clarify and document your clinical opinion in the progress notes and discharge summary. Terms such as "probable", "suspected", "likely", "questionable", "possible", or "still to be ruled out" are acceptable. IF IN AGREEMENT, YOU MUST DOCUMENT ABOVE DIAGNOSTIC STATEMENT IN DAILY PROGRESS NOTES AND DISCHARGE SUMMARY. This document is not part of the patient's record. Thank You, Bro Zavaleta, RN [phone]
[2017-12-07 06:45] LABS: CALCIUM 8.6 mg/dl (8.5-10.1); CREATININE 0.96 mg/dl (0.60-1.40)
[2017-12-07 06:46] LABS: ALBUMIN 2.6 gm/dl (3.4-5.0)
[2017-12-07] MEDS: ALBUT/IPRATROP 3MG/0.5MG NEB 3 ML VIAL INH SCH ×4 (06:59→18:59)
[2017-12-07] MEDS: ASPIRIN 81 MG ECTAB PO SCH (08:56)
[2017-12-07] MEDS: METOPROLOL TARTRATE 25 MG TAB PO SCH ×2 (08:57→19:48)
[2017-12-07] MEDS: FINASTERIDE 5 MG TAB PO SCH (08:57)
[2017-12-07] MEDS: ALLOPURINOL 300 MG TAB PO SCH (08:57)
[2017-12-07] MEDS: PANTOprazole SOD 40 MG TAB PO SCH (08:57)
[2017-12-07] MEDS: CIPROFLOXACIN HCL 0.3% OP SOLN 2.5 ML BTL OPL SCH ×4 (08:57→19:49)
[2017-12-07] MEDS: FLUOXETINE HCL 10 MG CAP PO SCH (08:57)
[2017-12-07] MEDS: FLECAINIDE ACETATE 100 MG TAB PO SCH ×2 (08:58→19:48)
[2017-12-07] MEDS: TRIAMCINOLONE ACET 0.1% OINT 15 GM TUBE TOP SCH ×2 (08:58→19:49)
[2017-12-07] MEDS: BOOST VANILLA PO SCH ×2 (08:59→19:48)
--- NOTE | 2017-12-07 15:19 | Progress Note ---
Subjective Date of Service: Dec 07, 2017. Subjective Pt evaluation today including: conversation w/ patient, conversation w/ family (daughter), physical exam, lab review, review of inpatient medication list Pain: no pain PO Intake: ate breakfast, poor appetite at lunch Voiding: no voiding problems patient feeling about the same, maybe a little more energy no cough, no fever asking about hoarseness today, said it started a few days ago with his shortness of breath no choking or difficulty swallowing reviewed labs, pancytopenia, hb down to 7.3, leukopenic, platelets in the 50's discussed transfusion of 2 more units, he agreed updated daughter at the bedside Problem List Medical Problems: (1) Diarrhea Status: Acute (2) Dysphasia Status: Acute (3) Headache Status: Acute (4) Pancytopenia Status: Acute (5) Stroke-like symptoms Status: Acute (6) Vasovagal near syncope Status: Acute Review of Systems Constitutional: + weakness, + fatigue ENT: + problem reported (hoarse voice) Respiratory: + dyspnea on exertion All Other Systems: Reviewed and Negative Medications Current Inpatient Medications Medications (Trade) Dose Ordered Sig/Lisandro Route Start Time Stop Time Status Last Admin Dose Admin Acetaminophen (Tylenol Tab) 650 mg Q4H PRN PO 12/06/17 02:45 01/05/18 02:44 12/06/17 07:31 650 MG Allopurinol (Zyloprim Tab) 300 mg DAILY PO 12/06/17 08:00 01/05/18 08:59 12/07/17 08:57 300 MG Aspirin (Ecotrin Tab) 81 mg QAM PO 12/06/17 08:00 01/05/18 08:59 12/07/17 08:56 81 MG Diclofenac Sodium (Voltaren 1% Top Gel) 1 appln Q6H PRN EXT 12/06/17 02:45 01/05/18 02:44 Finasteride (Proscar Tab) 5 mg QAM PO 12/06/17 08:00 01/05/18 08:59 12/07/17 08:57 5 MG Flecainide Acetate (Tambocor Tab) 100 mg BID PO 12/06/17 08:00 01/05/18 08:59 12/07/17 08:58 100 MG Fluoxetine HCl (Prozac Cap) 10 mg DAILY PO 12/06/17 08:00 01/05/18 08:59 12/07/17 08:57 10 MG Lorazepam (Ativan Tab) 0.5 mg BID PRN PO 12/06/17 02:45 01/05/18 02:44 Metoprolol Tartrate (Lopressor Tab) 25 mg BID PO 12/06/17 08:00 01/05/18 08:59 12/07/17 08:57 25 MG Pantoprazole Sodium (Protonix Tab) 40 mg QAM PO 12/06/17 08:00 01/05/18 08:59 12/07/17 08:57 40 MG Triamcinolone Acetonide (Kenalog 0.1% Oint) 1 appln BID TOP 12/06/17 08:00 01/05/18 08:59 12/07/17 08:58 1 APPLN Ceftriaxone Sodium 1 gm/ Dextrose 50 ml @ 100 mls/hr Q24H IV 12/06/17 04:00 12/13/17 03:59 12/07/17 04:40 100 MLS/HR Ondansetron HCl (Zofran Odt) 8 mg Q6H PRN PO 12/06/17 02:45 01/05/18 02:44 12/06/17 18:14 8 MG Acetaminophen 100 ml @ 400 mls/hr Q8H PRN IV 12/06/17 02:45 01/05/18 02:44 Albuterol/ Ipratropium (Duoneb) 3 ml Q4RWA INH 12/06/17 08:00 01/05/18 07:59 12/07/17 11:04 3 ML Ciprofloxacin HCl (Ciprofloxacin 0.3% Op Soln) 2 drops QID OPL 12/06/17 08:00 12/16/17 08:59 12/07/17 12:06 2 DROPS Heparin Sodium (Porcine) (Heparin 100 Unit/ml 5ml Flush) 5 ml PRN PRN IV 12/06/17 12:45 01/05/18 12:44 12/07/17 05:30 5 ML Enteral Nutritional Formula (Boost) 1 can BID PO 12/06/17 20:00 01/05/18 19:59 12/07/17 08:59 1 CAN Objective Vital Signs Date Time Temp Pulse Resp B/P (MAP) Pulse Ox O2 Delivery O2 Flow Rate FiO2 12/07/17 14:30 36.5 72 18 109/69 (82) 94 12/07/17 11:13 36.6 69 18 118/74 (89) 96 Room Air 73 113/70 (84) 74 103/66 (78) 12/07/17 11:05 68 16 96 Room Air 12/07/17 09:00 Room Air 12/07/17 07:39 36.6 79 19 121/81 (94) 91 Room Air 12/07/17 07:01 73 16 92 Room Air 12/07/17 04:35 37.7 76 18 125/74 (91) 90 Room Air 12/07/17 00:00 Room Air 12/06/17 23:36 36.5 82 20 131/74 (93) 94 Room Air 12/06/17 19:31 36.9 93 19 126/72 (90) 93 Room Air 12/06/17 19:06 88 16 97 Room Air 12/06/17 16:00 Room Air Physical Exam General Appearance: WD/WN, no apparent distress Eyes: normal inspection, EOMI, sclerae normal ENT: normal ENT inspection, hearing grossly normal, pharynx normal, + muffled/ hoarse voice Neck: supple, no adenopathy, no JVD, trachea midline Respiratory/Chest: chest non-tender, lungs clear, no respiratory distress, no accessory muscle use, + decreased breath sounds Cardiovascular: regular rate, rhythm, no edema, no gallop, no JVD, no murmur Abdomen: normal bowel sounds, non tender, soft, no organomegaly Extremities: normal range of motion, non-tender, normal inspection, no pedal edema, no calf tenderness, pelvis stable 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, no motor/sensory deficits, alert, normal mood/affect, oriented x 3 Skin: normal color, warm/dry, no rash Laboratory Results Last 24 Hours Test 12/07/17 05:30 White Blood Count 1.57 K/uL Red Blood Count 2.44 M/uL Hemoglobin 7.3 g/dL Hematocrit 21.6 % Mean Corpuscular Volume 88.5 fL Mean Corpuscular Hemoglobin 29.9 pg Mean Corpuscular Hemoglobin Concent 33.8 g/dl Platelet Count 51 K/uL Neutrophils (%) (Auto) 86.1 % Lymphocytes (%) (Auto) 10.8 % Monocytes (%) (Auto) 1.9 % Eosinophils (%) (Auto) 0.6 % Basophils (%) (Auto) 0.0 % Neutrophils # (Auto) 1.35 K/uL Lymphocytes # (Auto) 0.17 K/uL Monocytes # (Auto) 0.03 K/uL Eosinophils # (Auto) 0.01 K/uL Basophils # (Auto) 0.00 K/uL RDW Standard Deviation 58.4 fL RDW Coefficient of Variation 17.7 % Immature Granulocyte % (Auto) 0.6 % Immature Granulocyte # (Auto) 0.01 K/uL Giant Platelets 3+ Ovalocytes 1+ Prothrombin Time 12.3 SECONDS Prothromb Time International Ratio 1.2 Activated Partial Thromboplast Time 70.3 SECONDS Partial Thromboplastin Ratio 2.7 Sodium Level 130 mmol/L Potassium Level 4.0 mmol/L Chloride Level 97 mmol/L Carbon Dioxide Level 25 mmol/L Anion Gap 8.0 mmol/L Blood Urea Nitrogen 26 mg/dl Creatinine 0.96 mg/dl Est Creatinine Clear Calc Drug Dose 54.4 ml/min Estimated GFR () 83.2 Estimated GFR (Non- 71.8 BUN/Creatinine Ratio 27.2 Random Glucose 129 mg/dl Calcium Level 8.6 mg/dl Magnesium Level 2.0 mg/dl Total Bilirubin 0.6 mg/dl Direct Bilirubin 0.2 mg/dl Aspartate Amino Transf (AST/SGOT) 25 U/L Alanine Aminotransferase (ALT/SGPT) 35 U/L Alkaline Phosphatase 74 U/L Total Protein 6.0 gm/dl Albumin 2.6 gm/dl Assessment and Plan 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 Bowen/anemia with hemoglobin 7.9/thrombocytopenia with platelets 74 on admission Antineoplastic chemotherapy induced pancytopenia worsening numbers day in all cell lines, not quite neutropenic although close hb down to 7.3, will give two units of irradiated PRBC and repeat CBC tomorrow platelets down to 54, monitor daily Pneumonia-- [place], likely right side but could not tell on PA film continue Rocephin, afebrile and coughing less, needs 7 days total Duonebs every 4 hours while awake and every 2 hours when necessary. Hoarseness: started with infection, could be related to URI or pneumonia? will check a CT chest with IV contrast tomorrow with his h/o lung CA and mets , r/o any mass close to recurrent laryngeal nerve hold on ENT consult Dysrhythmia/hypertension/hypomagnesemia-- Continue flecainide 100 mg p.o. twice daily, metoprolol tartrate 25 mg p.o. twice daily and aspirin 81 mg daily. hypomag resolved Gout-- Continue allopurinol 300 mg p.o. daily GERD-- Continue pantoprazole 40 mg every morning Depression-- Continue Prozac 10 mg daily BPH-- Continue finasteride 5 mg every morning repeat labs tomorrow, check CT chest for hoarseness evaluation
[2017-12-07] MEDS ORDERED: ONDANSETRON INJ 2 MG/ML 2 ML VIAL IV PRN (16:00)
[2017-12-07] MEDS: DOCUSATE SODIUM 100 MG CAP PO SCH (19:50)
[2017-12-08] VITALS (10 sets, daily range): BP systolic 117–142; BP diastolic 64–83; PULSE 65–78; TEMP 36.3–37.1; O2SAT 94–97
[2017-12-08] MEDS: CEFTRIAXONE SOD INJ 1 GM in DEXTROSE 5% ADD-VANTAGE 50ML 50 ML IV SCH (04:20)
[2017-12-08] MEDS: ALBUT/IPRATROP 3MG/0.5MG NEB 3 ML VIAL INH SCH ×4 (06:49→19:54)
[2017-12-08 06:59] LABS: INR 1.1 (0.9-1.1); PTT PATIENT 29.7 SECONDS (21.0-31.0)
[2017-12-08 07:34] LABS: ALBUMIN 2.8 gm/dl (3.4-5.0); CALCIUM 9.1 mg/dl (8.5-10.1); CREATININE 1.02 mg/dl (0.60-1.40); POTASSIUM 4.2 mmol/L (3.5-5.1); TOTAL PROTEIN 6.7 gm/dl (6.4-8.2)
[2017-12-08 07:38] LABS: HEMATOCRIT 31.1 % (42-52); HEMOGLOBIN 10.3 g/dL (14.0-18.0); MEAN CELL VOLUME 88.9 fL (80-100); MEAN CORPUSCULAR HEMOGLOBIN 29.4 pg (25-34); MEAN CORPUSCULAR HGB CONC 33.1 g/dl (32-36); PLATELET COUNT 79 K/uL (130-400); RED CELL DISTRIBUTION WIDTH CV 16.9 % (11.5-14.5); WHITE BLOOD COUNT 1.95 K/uL (4.8-10.8)
[2017-12-08 07:43] LABS: BASO % 0.5 %; BASO ABS # 0.01 K/uL (0-0.2); EOS % 2.6 %; EOS ABS # 0.05 K/uL (0-0.5); LYMPH % 11.3 %; LYMPH ABS # 0.22 K/uL (1.2-3.4); MONO % 2.6 %; MONO ABS # 0.05 K/uL (0.11-0.59); NEUT ABS # 1.62 K/uL (1.4-6.5)
[2017-12-08] MEDS: TRIAMCINOLONE ACET 0.1% OINT 15 GM TUBE TOP SCH ×2 (08:13→19:40)
[2017-12-08] MEDS: CIPROFLOXACIN HCL 0.3% OP SOLN 2.5 ML BTL OPL SCH ×4 (08:13→19:39)
[2017-12-08] MEDS: FINASTERIDE 5 MG TAB PO SCH (08:14)
[2017-12-08] MEDS: ALLOPURINOL 300 MG TAB PO SCH (08:14)
[2017-12-08] MEDS: METOPROLOL TARTRATE 25 MG TAB PO SCH ×2 (08:14→19:42)
[2017-12-08] MEDS: ASPIRIN 81 MG ECTAB PO SCH (08:14)
[2017-12-08] MEDS: PANTOprazole SOD 40 MG TAB PO SCH (08:14)
[2017-12-08] MEDS: FLUOXETINE HCL 10 MG CAP PO SCH (08:14)
[2017-12-08] MEDS: DOCUSATE SODIUM 100 MG CAP PO SCH ×2 (08:14→19:40)
[2017-12-08] MEDS: FLECAINIDE ACETATE 100 MG TAB PO SCH ×2 (08:14→19:40)
[2017-12-08] MEDS: BOOST VANILLA PO SCH ×2 (08:15→19:40)
--- NOTE | 2017-12-08 14:52 | Progress Note ---
Subjective Date of Service: Dec 08, 2017. Subjective Pt evaluation today including: conversation w/ patient, physical exam, lab review, review of inpatient medication list Pain: no pain PO Intake: adequate Voiding: no voiding problems feeling better today, his voice is coming back which makes him happy coughing less, breathing is better reviewed labs, Cr stable Hb up to 10.3, WBC trending up, platelets up in 70's patient says he is weak, wants therapy Problem List Medical Problems: (1) Diarrhea Status: Acute (2) Dysphasia Status: Acute (3) Headache Status: Acute (4) Pancytopenia Status: Acute (5) Stroke-like symptoms Status: Acute (6) Vasovagal near syncope Status: Acute Review of Systems Constitutional: + weakness, + fatigue ENT: + problem reported (hoarse voice, but improving) Respiratory: + cough, + dyspnea on exertion All Other Systems: Reviewed and Negative Medications Current Inpatient Medications Medications (Trade) Dose Ordered Sig/Lisandro Route Start Time Stop Time Status Last Admin Dose Admin Acetaminophen (Tylenol Tab) 650 mg Q4H PRN PO 12/06/17 02:45 01/05/18 02:44 12/06/17 07:31 650 MG Allopurinol (Zyloprim Tab) 300 mg DAILY PO 12/06/17 08:00 01/05/18 08:59 12/08/17 08:14 300 MG Aspirin (Ecotrin Tab) 81 mg QAM PO 12/06/17 08:00 01/05/18 08:59 12/08/17 08:14 81 MG Diclofenac Sodium (Voltaren 1% Top Gel) 1 appln Q6H PRN EXT 12/06/17 02:45 01/05/18 02:44 Finasteride (Proscar Tab) 5 mg QAM PO 12/06/17 08:00 01/05/18 08:59 12/08/17 08:14 5 MG Flecainide Acetate (Tambocor Tab) 100 mg BID PO 12/06/17 08:00 01/05/18 08:59 12/08/17 08:14 100 MG Fluoxetine HCl (Prozac Cap) 10 mg DAILY PO 12/06/17 08:00 01/05/18 08:59 12/08/17 08:14 10 MG Lorazepam (Ativan Tab) 0.5 mg BID PRN PO 12/06/17 02:45 01/05/18 02:44 Metoprolol Tartrate (Lopressor Tab) 25 mg BID PO 12/06/17 08:00 01/05/18 08:59 12/08/17 08:14 25 MG Pantoprazole Sodium (Protonix Tab) 40 mg QAM PO 12/06/17 08:00 01/05/18 08:59 12/08/17 08:14 40 MG Triamcinolone Acetonide (Kenalog 0.1% Oint) 1 appln BID TOP 12/06/17 08:00 01/05/18 08:59 12/08/17 08:13 1 APPLN Ceftriaxone Sodium 1 gm/ Dextrose 50 ml @ 100 mls/hr Q24H IV 12/06/17 04:00 12/13/17 03:59 12/08/17 04:20 100 MLS/HR Ondansetron HCl (Zofran Odt) 8 mg Q6H PRN PO 12/06/17 02:45 01/05/18 02:44 12/06/17 18:14 8 MG Acetaminophen 100 ml @ 400 mls/hr Q8H PRN IV 12/06/17 02:45 01/05/18 02:44 Albuterol/ Ipratropium (Duoneb) 3 ml Q4RWA INH 12/06/17 08:00 01/05/18 07:59 12/08/17 14:25 3 ML Ciprofloxacin HCl (Ciprofloxacin 0.3% Op Soln) 2 drops QID OPL 12/06/17 08:00 12/16/17 08:59 12/08/17 12:00 2 DROPS Heparin Sodium (Porcine) (Heparin 100 Unit/ml 5ml Flush) 5 ml PRN PRN IV 12/06/17 12:45 01/05/18 12:44 12/08/17 05:55 5 ML Enteral Nutritional Formula (Boost) 1 can BID PO 12/06/17 20:00 01/05/18 19:59 12/08/17 08:15 1 CAN Docusate Sodium (coLACE CAP) 100 mg BID PO 12/07/17 20:00 01/06/18 19:59 12/08/17 08:14 100 MG Ondansetron HCl (Zofran Inj) 4 mg Q4H PRN IV 12/07/17 16:00 01/06/18 15:59 12/07/17 18:45 4 MG Objective Vital Signs Date Time Temp Pulse Resp B/P (MAP) Pulse Ox O2 Delivery O2 Flow Rate FiO2 12/08/17 14:25 65 16 97 Room Air 12/08/17 11:11 76 16 94 Room Air 12/08/17 11:09 37.0 72 18 137/83 (101) 97 Room Air 12/08/17 08:15 Room Air 12/08/17 07:49 36.3 78 18 139/80 (99) 94 Room Air 126/81 (96) 128/74 (92) 12/08/17 06:49 68 16 95 Room Air 12/08/17 04:17 37.1 70 18 124/76 (92) 96 Room Air 12/08/17 00:00 37.1 70 20 117/64 (81) 95 Room Air 12/08/17 00:00 Room Air 12/07/17 21:37 37.4 83 18 109/69 96 12/07/17 20:45 36.4 86 20 121/74 94 12/07/17 20:15 37.1 86 22 120/72 92 12/07/17 19:45 37.0 88 20 126/76 94 12/07/17 19:30 36.6 88 18 126/75 92 12/07/17 19:18 36.2 82 18 125/75 98 12/07/17 18:59 69 16 95 Room Air 12/07/17 18:55 36.4 84 16 118/71 92 12/07/17 17:55 36.9 80 18 130/77 93 12/07/17 17:25 36.6 82 18 127/74 94 12/07/17 16:55 36.6 78 18 128/74 93 12/07/17 16:40 36.8 79 18 113/71 93 12/07/17 16:18 36.8 80 18 119/74 95 12/07/17 16:00 93 Room Air 12/07/17 15:12 75 16 93 Room Air Physical Exam General Appearance: WD/WN, no apparent distress Eyes: normal inspection, EOMI, sclerae normal ENT: normal ENT inspection, hearing grossly normal, pharynx normal Neck: supple, no adenopathy, no JVD, trachea midline Respiratory/Chest: chest non-tender, lungs clear, normal breath sounds, no respiratory distress, no accessory muscle use Cardiovascular: regular rate, rhythm, no edema, no gallop, no JVD, no murmur Abdomen: normal bowel sounds, non tender, soft, no organomegaly Extremities: normal range of motion, non-tender, normal inspection, no pedal edema, no calf tenderness, pelvis stable 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, alert, normal mood/affect, oriented x 3, + motor weakness (generalized) Skin: normal color, warm/dry, no rash Lymphatic: no adenopathy Laboratory Results Last 24 Hours Test 12/08/17 06:41 White Blood Count 1.95 K/uL Red Blood Count 3.50 M/uL Hemoglobin 10.3 g/dL Hematocrit 31.1 % Mean Corpuscular Volume 88.9 fL Mean Corpuscular Hemoglobin 29.4 pg Mean Corpuscular Hemoglobin Concent 33.1 g/dl Platelet Count 79 K/uL Neutrophils (%) (Auto) 83.0 % Lymphocytes (%) (Auto) 11.3 % Monocytes (%) (Auto) 2.6 % Eosinophils (%) (Auto) 2.6 % Basophils (%) (Auto) 0.5 % Neutrophils # (Auto) 1.62 K/uL Lymphocytes # (Auto) 0.22 K/uL Monocytes # (Auto) 0.05 K/uL Eosinophils # (Auto) 0.05 K/uL Basophils # (Auto) 0.01 K/uL RDW Standard Deviation 55.0 fL RDW Coefficient of Variation 16.9 % Immature Granulocyte % (Auto) 0.0 % Immature Granulocyte # (Auto) 0.00 K/uL Platelet Estimate DECREASED Giant Platelets 2+ Basophilic Stippling OCCASIONAL Anisocytosis PRESENT Tear Drop Cells 1+ Schistocytes 1+ Prothrombin Time 11.1 SECONDS Prothromb Time International Ratio 1.1 Activated Partial Thromboplast Time 29.7 SECONDS Partial Thromboplastin Ratio 1.1 Sodium Level 130 mmol/L Potassium Level 4.2 mmol/L Chloride Level 97 mmol/L Carbon Dioxide Level 27 mmol/L Anion Gap 6.0 mmol/L Blood Urea Nitrogen 21 mg/dl Creatinine 1.02 mg/dl Est Creatinine Clear Calc Drug Dose 48.7 ml/min Estimated GFR () 77.3 Estimated GFR (Non- 66.7 BUN/Creatinine Ratio 20.2 Random Glucose 110 mg/dl Calcium Level 9.1 mg/dl Magnesium Level 1.9 mg/dl Total Bilirubin 0.7 mg/dl Direct Bilirubin 0.2 mg/dl Aspartate Amino Transf (AST/SGOT) 47 U/L Alanine Aminotransferase (ALT/SGPT) 69 U/L Alkaline Phosphatase 98 U/L Total Protein 6.7 gm/dl Albumin 2.8 gm/dl Assessment and Plan 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 Bowen/anemia with hemoglobin 7.9/thrombocytopenia with platelets 74 on admission Antineoplastic chemotherapy induced pancytopenia Hb up to 10.3, platelets up to 70's, WBC trending up, no neutropenia should continue to improve, likely reached srinath yesterday Pneumonia-- [place], likely right side but could not tell on PA film continue Rocephin, afebrile and coughing less, needs 7 days total will change to Cefdinir tomorrow for last few days Duonebs every 4 hours while awake and every 2 hours when necessary. Hoarseness: started with infection, could be related to URI or pneumonia? hold on CT chest today since his hoarseness improving, no need for ENT consult since it is better, most likely related to infection Weakness - request PT/OT evaluations Dysrhythmia/hypertension/hypomagnesemia-- Continue flecainide 100 mg p.o. twice daily, metoprolol tartrate 25 mg p.o. twice daily and aspirin 81 mg daily. hypomag resolved Gout-- Continue allopurinol 300 mg p.o. daily GERD-- Continue pantoprazole 40 mg every morning Depression-- Continue Prozac 10 mg daily BPH-- Continue finasteride 5 mg every morning labs again tomorrow, follow up on PT/OT recs
[2017-12-09] VITALS (14 sets, daily range): BP systolic 109–134; BP diastolic 61–87; PULSE 64–98; TEMP 36–37.1; O2SAT 93–97
[2017-12-09] MEDS: CEFTRIAXONE SOD INJ 1 GM in DEXTROSE 5% ADD-VANTAGE 50ML 50 ML IV SCH (03:44)
[2017-12-09 07:05] LABS: CALCIUM 9.2 mg/dl (8.5-10.1); CREATININE 0.86 mg/dl (0.60-1.40); POTASSIUM 4.2 mmol/L (3.5-5.1)
[2017-12-09] MEDS: ALBUT/IPRATROP 3MG/0.5MG NEB 3 ML VIAL INH SCH ×4 (07:16→19:21)
[2017-12-09 07:26] LABS: HEMATOCRIT 28.5 % (42-52); HEMOGLOBIN 9.8 g/dL (14.0-18.0); MEAN CELL VOLUME 89.1 fL (80-100); MEAN CORPUSCULAR HEMOGLOBIN 30.6 pg (25-34); MEAN CORPUSCULAR HGB CONC 34.4 g/dl (32-36); MEAN PLATELET VOLUME 10.9 fL (7.4-10.4); PLATELET COUNT 87 K/uL (130-400); RED CELL DISTRIBUTION WIDTH CV 16.7 % (11.5-14.5); RED CELL DISTRIBUTION WIDTH SD 54.8 fL (36.4-46.3); WHITE BLOOD COUNT 1.23 K/uL (4.8-10.8)
[2017-12-09 07:32] LABS: BASO % 0.8 %; BASO ABS # 0.01 K/uL (0-0.2); EOS % 4.1 %; EOS ABS # 0.05 K/uL (0-0.5); IG# 0.01 K/uL (0.00-0.02); LYMPH % 15.4 %; LYMPH ABS # 0.19 K/uL (1.2-3.4); MONO % 8.1 %; NEUT % 70.8 %; NEUT ABS # 0.87 K/uL (1.4-6.5)
[2017-12-09] MEDS: ALLOPURINOL 300 MG TAB PO SCH (07:44)
[2017-12-09] MEDS: ASPIRIN 81 MG ECTAB PO SCH (07:44)
[2017-12-09] MEDS: PANTOprazole SOD 40 MG TAB PO SCH (07:44)
[2017-12-09] MEDS: FLUOXETINE HCL 10 MG CAP PO SCH (07:44)
[2017-12-09] MEDS: FINASTERIDE 5 MG TAB PO SCH (07:44)
[2017-12-09] MEDS: DOCUSATE SODIUM 100 MG CAP PO SCH ×2 (07:45→20:33)
[2017-12-09] MEDS: METOPROLOL TARTRATE 25 MG TAB PO SCH ×2 (07:45→20:34)
[2017-12-09] MEDS: FLECAINIDE ACETATE 100 MG TAB PO SCH ×2 (07:45→20:33)
[2017-12-09] MEDS: BOOST VANILLA PO SCH ×2 (07:45→20:00)
[2017-12-09] MEDS: TRIAMCINOLONE ACET 0.1% OINT 15 GM TUBE TOP SCH ×2 (07:46→20:34)
[2017-12-09] MEDS: CIPROFLOXACIN HCL 0.3% OP SOLN 2.5 ML BTL OPL SCH ×4 (07:46→20:32)
[2017-12-09] MEDS ORDERED: FILGRASTIM 300 MCG/ML 1 ML VIAL SQ ONE (11:00)
--- NOTE | 2017-12-09 14:03 | Progress Note ---
Subjective Date of Service: Dec 09, 2017. Subjective Pt evaluation today including: conversation w/ patient, conversation w/ family (daughter), physical exam, lab review, review of inpatient medication list Pain: no pain PO Intake: adequate Voiding: no voiding problems patient feeling well, ambulated 400ft with therapy, determined he was strong enough to go home patient and family concerned, he lives alone and worried about discharge discussed options of home health vs subacute rehab, wanted to talk with CM, told case managers to talk with them reviewed labs, Hb and platelets stable, now he is neutropenic with ANC 0.8, precautions initiated clinically doing well, minimal cough, voice continues to improve Problem List Medical Problems: (1) Diarrhea Status: Acute (2) Dysphasia Status: Acute (3) Headache Status: Acute (4) Pancytopenia Status: Acute (5) Stroke-like symptoms Status: Acute (6) Vasovagal near syncope Status: Acute Review of Systems Constitutional: + weakness, + fatigue ENT: + problem reported (hoarseness) Respiratory: + cough, + dyspnea on exertion Neurologic: + weakness All Other Systems: Reviewed and Negative Medications Current Inpatient Medications Medications (Trade) Dose Ordered Sig/Lisandro Route Start Time Stop Time Status Last Admin Dose Admin Acetaminophen (Tylenol Tab) 650 mg Q4H PRN PO 12/06/17 02:45 01/05/18 02:44 12/06/17 07:31 650 MG Allopurinol (Zyloprim Tab) 300 mg DAILY PO 12/06/17 08:00 01/05/18 08:59 12/09/17 07:44 300 MG Aspirin (Ecotrin Tab) 81 mg QAM PO 12/06/17 08:00 01/05/18 08:59 12/09/17 07:44 81 MG Diclofenac Sodium (Voltaren 1% Top Gel) 1 appln Q6H PRN EXT 12/06/17 02:45 01/05/18 02:44 Finasteride (Proscar Tab) 5 mg QAM PO 12/06/17 08:00 01/05/18 08:59 12/09/17 07:44 5 MG Flecainide Acetate (Tambocor Tab) 100 mg BID PO 12/06/17 08:00 01/05/18 08:59 12/09/17 07:45 100 MG Fluoxetine HCl (Prozac Cap) 10 mg DAILY PO 12/06/17 08:00 01/05/18 08:59 12/09/17 07:44 10 MG Lorazepam (Ativan Tab) 0.5 mg BID PRN PO 12/06/17 02:45 01/05/18 02:44 Metoprolol Tartrate (Lopressor Tab) 25 mg BID PO 12/06/17 08:00 01/05/18 08:59 12/09/17 07:45 25 MG Pantoprazole Sodium (Protonix Tab) 40 mg QAM PO 12/06/17 08:00 01/05/18 08:59 12/09/17 07:44 40 MG Triamcinolone Acetonide (Kenalog 0.1% Oint) 1 appln BID TOP 12/06/17 08:00 01/05/18 08:59 12/09/17 07:46 1 APPLN Ondansetron HCl (Zofran Odt) 8 mg Q6H PRN PO 12/06/17 02:45 01/05/18 02:44 12/06/17 18:14 8 MG Acetaminophen 100 ml @ 400 mls/hr Q8H PRN IV 12/06/17 02:45 01/05/18 02:44 Albuterol/ Ipratropium (Duoneb) 3 ml Q4RWA INH 12/06/17 08:00 01/05/18 07:59 12/09/17 10:51 3 ML Ciprofloxacin HCl (Ciprofloxacin 0.3% Op Soln) 2 drops QID OPL 12/06/17 08:00 12/16/17 08:59 12/09/17 11:25 2 DROPS Heparin Sodium (Porcine) (Heparin 100 Unit/ml 5ml Flush) 5 ml PRN PRN IV 12/06/17 12:45 01/05/18 12:44 12/09/17 03:44 5 ML Enteral Nutritional Formula (Boost) 1 can BID PO 12/06/17 20:00 01/05/18 19:59 12/09/17 07:45 1 CAN Docusate Sodium (coLACE CAP) 100 mg BID PO 12/07/17 20:00 01/06/18 19:59 12/09/17 07:45 100 MG Ondansetron HCl (Zofran Inj) 4 mg Q4H PRN IV 12/07/17 16:00 01/06/18 15:59 12/07/17 18:45 4 MG Cefdinir (Omnicef Cap) 300 mg BID PO 12/10/17 04:00 12/13/17 23:59 Objective Vital Signs Date Time Temp Pulse Resp B/P (MAP) Pulse Ox O2 Delivery O2 Flow Rate FiO2 12/09/17 12:04 36.3 77 18 115/73 (87) 93 Room Air 12/09/17 10:51 64 16 96 Room Air 12/09/17 08:43 97 Room Air 12/09/17 08:30 97 Room Air 12/09/17 08:05 111/71 (84) 12/09/17 08:04 116/81 (93) 12/09/17 08:03 36.7 77 18 134/87 (103) 97 Room Air 12/09/17 07:16 73 16 96 Room Air 12/09/17 04:27 37.1 69 18 114/61 (78) 95 Room Air 12/09/17 00:00 Room Air 12/08/17 23:56 36.5 65 17 117/74 (88) 96 Room Air 12/08/17 19:54 71 16 95 Room Air 12/08/17 19:42 71 18 142/81 (101) 94 12/08/17 16:00 Room Air 12/08/17 14:25 97 12/08/17 14:25 65 16 97 Room Air Physical Exam General Appearance: WD/WN, no apparent distress Eyes: normal inspection, EOMI, sclerae normal ENT: normal ENT inspection, hearing grossly normal, pharynx normal, + muffled/ hoarse voice (improving) Neck: supple, no adenopathy, no JVD, trachea midline Respiratory/Chest: chest non-tender, lungs clear, no respiratory distress, no accessory muscle use, + decreased breath sounds Cardiovascular: regular rate, rhythm, no edema, no gallop, no JVD, no murmur Abdomen: normal bowel sounds, non tender, soft, no organomegaly Extremities: normal range of motion, non-tender, normal inspection, no pedal edema, no calf tenderness Neurologic/Psychiatric: 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, no motor/sensory deficits, alert, normal mood/affect, oriented x 3 Skin: normal color, warm/dry, no rash Lymphatic: no adenopathy Laboratory Results Last 24 Hours Test 12/09/17 06:05 White Blood Count 1.23 K/uL Red Blood Count 3.20 M/uL Hemoglobin 9.8 g/dL Hematocrit 28.5 % Mean Corpuscular Volume 89.1 fL Mean Corpuscular Hemoglobin 30.6 pg Mean Corpuscular Hemoglobin Concent 34.4 g/dl Platelet Count 87 K/uL Mean Platelet Volume 10.9 fL Neutrophils (%) (Auto) 70.8 % Lymphocytes (%) (Auto) 15.4 % Monocytes (%) (Auto) 8.1 % Eosinophils (%) (Auto) 4.1 % Basophils (%) (Auto) 0.8 % Neutrophils # (Auto) 0.87 K/uL Lymphocytes # (Auto) 0.19 K/uL Monocytes # (Auto) 0.10 K/uL Eosinophils # (Auto) 0.05 K/uL Basophils # (Auto) 0.01 K/uL RDW Standard Deviation 54.8 fL RDW Coefficient of Variation 16.7 % Immature Granulocyte % (Auto) 0.8 % Immature Granulocyte # (Auto) 0.01 K/uL Platelet Estimate DECREASED Large Platelets 1+ Giant Platelets 1+ Anisocytosis PRESENT Tear Drop Cells 1+ Sodium Level 130 mmol/L Potassium Level 4.2 mmol/L Chloride Level 98 mmol/L Carbon Dioxide Level 26 mmol/L Anion Gap 6.0 mmol/L Blood Urea Nitrogen 17 mg/dl Creatinine 0.86 mg/dl Est Creatinine Clear Calc Drug Dose 58.7 ml/min Estimated GFR () 91.6 Estimated GFR (Non- 79.1 BUN/Creatinine Ratio 19.5 Random Glucose 113 mg/dl Calcium Level 9.2 mg/dl Magnesium Level 1.9 mg/dl Assessment and Plan 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 Bowen/anemia with hemoglobin 7.9/thrombocytopenia with platelets 74 on admission Antineoplastic chemotherapy induced pancytopenia Hb stable at 9.8, platelets up to 80's, neutropenic today with ANC 0.8 will give a dose of Neupogen follow up on ANC tomorrow, continue precautions for now [place]-- [place], likely [place] but could not tell on PA film change to Cefdinir tomorrow AM as he got a dose of Rocephin at 0400 today complete 7 days total Duonebs every 4 hours while awake and every 2 hours when necessary. Hoarseness: started with infection, could be related to URI or pneumonia? hold on CT chest since his hoarseness is improved even further likely a result of URI Weakness - request PT/OT evaluations ambulated well, 400ft, okay to go home from therapy perspective, awaiting OT evaluation discussed with patient and family, home health vs SNF for rehab if insurance will approve Dysrhythmia/hypertension/hypomagnesemia-- Continue flecainide 100 mg p.o. twice daily, metoprolol tartrate 25 mg p.o. twice daily and aspirin 81 mg daily. hypomag resolved Gout-- Continue allopurinol 300 mg p.o. daily GERD-- Continue pantoprazole 40 mg every morning Depression-- Continue Prozac 10 mg daily BPH-- Continue finasteride 5 mg every morning follow up on ANC tomorrow, discharge planning per CM, home with home health vs SNF would be ready for home tomorrow if ANC comes up to normal range
[2017-12-10] VITALS (11 sets, daily range): BP systolic 96–133; BP diastolic 60–82; PULSE 63–95; TEMP 36.4–37.3; O2SAT 92–98
[2017-12-10] MEDS: CEFDINIR 300 MG CAP PO SCH ×2 (04:03→21:11)
[2017-12-10] MEDS: ALBUT/IPRATROP 3MG/0.5MG NEB 3 ML VIAL INH SCH ×4 (07:21→19:31)
[2017-12-10 07:38] LABS: HEMATOCRIT 30.6 % (42-52); HEMOGLOBIN 10.4 g/dL (14.0-18.0); MEAN CORPUSCULAR HEMOGLOBIN 30.6 pg (25-34); MEAN PLATELET VOLUME 11.9 fL (7.4-10.4); PLATELET COUNT 124 K/uL (130-400); RED CELL DISTRIBUTION WIDTH CV 16.6 % (11.5-14.5); RED CELL DISTRIBUTION WIDTH SD 54.9 fL (36.4-46.3); WHITE BLOOD COUNT 1.24 K/uL (4.8-10.8)
[2017-12-10 08:07] LABS: BASO % 0.8 %; BASO ABS # 0.01 K/uL (0-0.2); EOS % 2.4 %; EOS ABS # 0.03 K/uL (0-0.5); IG# 0.01 K/uL (0.00-0.02); LYMPH % 16.9 %; LYMPH ABS # 0.21 K/uL (1.2-3.4); MONO % 19.4 %; MONO ABS # 0.24 K/uL (0.11-0.59); NEUT % 59.7 %; NEUT ABS # 0.74 K/uL (1.4-6.5)
[2017-12-10] MEDS: METOPROLOL TARTRATE 25 MG TAB PO SCH ×2 (08:18→21:10)
[2017-12-10] MEDS: FINASTERIDE 5 MG TAB PO SCH (08:18)
[2017-12-10] MEDS: DOCUSATE SODIUM 100 MG CAP PO SCH ×2 (08:18→21:10)
[2017-12-10] MEDS: FLUOXETINE HCL 10 MG CAP PO SCH (08:18)
[2017-12-10] MEDS: ALLOPURINOL 300 MG TAB PO SCH (08:18)
[2017-12-10] MEDS: CIPROFLOXACIN HCL 0.3% OP SOLN 2.5 ML BTL OPL SCH ×4 (08:19→21:11)
[2017-12-10] MEDS: PANTOprazole SOD 40 MG TAB PO SCH (08:19)
[2017-12-10] MEDS: ASPIRIN 81 MG ECTAB PO SCH (08:19)
[2017-12-10] MEDS: TRIAMCINOLONE ACET 0.1% OINT 15 GM TUBE TOP SCH ×2 (08:19→21:11)
[2017-12-10] MEDS: FLECAINIDE ACETATE 100 MG TAB PO SCH ×2 (08:19→21:10)
[2017-12-10] MEDS: BOOST VANILLA PO SCH ×2 (08:20→21:10)
[2017-12-10] MEDS ORDERED: FILGRASTIM 300 MCG/ML 1 ML VIAL SQ ONE (11:00)
--- NOTE | 2017-12-10 11:59 | Progress Note ---
Subjective Date of Service: Dec 10, 2017. Subjective Pt evaluation today including: conversation w/ patient, conversation w/ family , physical exam, lab review, review of inpatient medication list Pain: no pain PO Intake: adequate Voiding: no voiding problems patient continues to improve, c/o cough that feels tight, just cant get sputum up voice is much improved today reviewed labs, platelets and Hb rising, still neutropenic, will give additional neupogen updated family at the bedside, plan for [facility], earliest would be Tuesday needing insurance auth and bed Problem List Medical Problems: (1) Diarrhea Status: Acute (2) Dysphasia Status: Acute (3) Headache Status: Acute (4) Pancytopenia Status: Acute (5) Stroke-like symptoms Status: Acute (6) Vasovagal near syncope Status: Acute Review of Systems Constitutional: + weakness, + fatigue ENT: + problem reported (hoarse voice, improving) Respiratory: + cough, + sputum, + dyspnea on exertion All Other Systems: Reviewed and Negative Medications Current Inpatient Medications Medications (Trade) Dose Ordered Sig/Lisandro Route Start Time Stop Time Status Last Admin Dose Admin Acetaminophen (Tylenol Tab) 650 mg Q4H PRN PO 12/06/17 02:45 01/05/18 02:44 12/06/17 07:31 650 MG Allopurinol (Zyloprim Tab) 300 mg DAILY PO 12/06/17 08:00 01/05/18 08:59 12/10/17 08:18 300 MG Aspirin (Ecotrin Tab) 81 mg QAM PO 12/06/17 08:00 01/05/18 08:59 12/10/17 08:19 81 MG Diclofenac Sodium (Voltaren 1% Top Gel) 1 appln Q6H PRN EXT 12/06/17 02:45 01/05/18 02:44 Finasteride (Proscar Tab) 5 mg QAM PO 12/06/17 08:00 01/05/18 08:59 12/10/17 08:18 5 MG Flecainide Acetate (Tambocor Tab) 100 mg BID PO 12/06/17 08:00 01/05/18 08:59 12/10/17 08:19 100 MG Fluoxetine HCl (Prozac Cap) 10 mg DAILY PO 12/06/17 08:00 01/05/18 08:59 12/10/17 08:18 10 MG Lorazepam (Ativan Tab) 0.5 mg BID PRN PO 12/06/17 02:45 01/05/18 02:44 Metoprolol Tartrate (Lopressor Tab) 25 mg BID PO 12/06/17 08:00 01/05/18 08:59 12/10/17 08:18 25 MG Pantoprazole Sodium (Protonix Tab) 40 mg QAM PO 12/06/17 08:00 01/05/18 08:59 12/10/17 08:19 40 MG Triamcinolone Acetonide (Kenalog 0.1% Oint) 1 appln BID TOP 12/06/17 08:00 01/05/18 08:59 12/10/17 08:19 1 APPLN Ondansetron HCl (Zofran Odt) 8 mg Q6H PRN PO 12/06/17 02:45 01/05/18 02:44 12/06/17 18:14 8 MG Acetaminophen 100 ml @ 400 mls/hr Q8H PRN IV 12/06/17 02:45 01/05/18 02:44 Albuterol/ Ipratropium (Duoneb) 3 ml Q4RWA INH 12/06/17 08:00 01/05/18 07:59 12/10/17 11:09 3 ML Ciprofloxacin HCl (Ciprofloxacin 0.3% Op Soln) 2 drops QID OPL 12/06/17 08:00 12/16/17 08:59 12/10/17 08:19 2 DROPS Heparin Sodium (Porcine) (Heparin 100 Unit/ml 5ml Flush) 5 ml PRN PRN IV 12/06/17 12:45 01/05/18 12:44 12/09/17 03:44 5 ML Enteral Nutritional Formula (Boost) 1 can BID PO 12/06/17 20:00 01/05/18 19:59 12/10/17 08:20 1 CAN Docusate Sodium (coLACE CAP) 100 mg BID PO 12/07/17 20:00 01/06/18 19:59 12/10/17 08:18 100 MG Ondansetron HCl (Zofran Inj) 4 mg Q4H PRN IV 12/07/17 16:00 01/06/18 15:59 12/07/17 18:45 4 MG Cefdinir (Omnicef Cap) 300 mg BID PO 12/10/17 04:00 12/13/17 23:59 12/10/17 04:03 300 MG Objective Vital Signs Date Time Temp Pulse Resp B/P (MAP) Pulse Ox O2 Delivery O2 Flow Rate FiO2 12/10/17 11:09 64 16 98 Room Air 12/10/17 08:30 Room Air 12/10/17 07:21 66 16 94 Room Air 12/10/17 06:51 36.9 70 18 133/78 (96) 94 Room Air 12/10/17 04:01 37.1 69 19 128/81 (97) 95 Room Air 12/10/17 00:03 36.9 87 19 120/82 (95) 93 Room Air 92 110/75 (87) 95 100/70 (80) 12/10/17 00:00 Room Air 12/09/17 19:21 86 16 95 Room Air 12/09/17 19:00 Room Air 12/09/17 18:53 36.7 89 18 122/75 (91) 93 94 115/76 (89) 98 109/71 (84) 12/09/17 15:48 95 Room Air 12/09/17 14:54 36.0 77 18 116/78 (91) 95 Room Air 12/09/17 14:41 75 16 94 Room Air 12/09/17 12:04 36.3 77 18 115/73 (87) 93 Room Air Physical Exam General Appearance: WD/WN, no apparent distress Eyes: normal inspection, EOMI, sclerae normal ENT: normal ENT inspection, hearing grossly normal, pharynx normal Neck: supple, no adenopathy, no JVD, trachea midline Respiratory/Chest: chest non-tender, lungs clear, normal breath sounds, no respiratory distress, no accessory muscle use Cardiovascular: regular rate, rhythm, no edema, no gallop, no JVD, no murmur Abdomen: normal bowel sounds, non tender, soft, no organomegaly Extremities: normal range of motion, non-tender, normal inspection, no pedal edema, no calf tenderness, normal capillary refill, pelvis stable 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, no motor/sensory deficits, alert, normal mood/affect, oriented x 3 Skin: normal color, warm/dry, no rash Lymphatic: no adenopathy Laboratory Results Last 24 Hours Test 12/09/17 16:35 12/09/17 20:33 12/10/17 07:21 Bedside Glucose 174 mg/dl 140 mg/dl White Blood Count 1.24 K/uL Red Blood Count 3.40 M/uL Hemoglobin 10.4 g/dL Hematocrit 30.6 % Mean Corpuscular Volume 90.0 fL Mean Corpuscular Hemoglobin 30.6 pg Mean Corpuscular Hemoglobin Concent 34.0 g/dl Platelet Count 124 K/uL Mean Platelet Volume 11.9 fL Neutrophils (%) (Auto) 59.7 % Lymphocytes (%) (Auto) 16.9 % Monocytes (%) (Auto) 19.4 % Eosinophils (%) (Auto) 2.4 % Basophils (%) (Auto) 0.8 % Neutrophils # (Auto) 0.74 K/uL Lymphocytes # (Auto) 0.21 K/uL Monocytes # (Auto) 0.24 K/uL Eosinophils # (Auto) 0.03 K/uL Basophils # (Auto) 0.01 K/uL RDW Standard Deviation 54.9 fL RDW Coefficient of Variation 16.6 % Immature Granulocyte % (Auto) 0.8 % Immature Granulocyte # (Auto) 0.01 K/uL Giant Platelets 1+ Tear Drop Cells 1+ Ovalocytes 1+ Assessment and Plan 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 Bowen/anemia with hemoglobin 7.9/thrombocytopenia with platelets 74 on admission Antineoplastic chemotherapy induced pancytopenia Hb stable at 10.4, platelets up to 124, neutropenic again today with ANC 0.74 Neupogen given on 12/09, will give another dose today and repeat CBC in the AM continue precautions Pneumonia-- [place], likely right side but could not tell on PA film change to Cefdinir today, today is day #5, complete 7 total Duonebs every 4 hours while awake and every 2 hours when necessary add Mucinex since mucous is thick Hoarseness: started with infection, could be related to URI or pneumonia? hold on CT chest since his hoarseness is improving every day, nearly normal voice today likely a result of URI Weakness - request PT/OT evaluations ambulated well, 400ft, okay to go home from therapy perspective, awaiting OT evaluation discussed with patient and family, they d/w CM yesterday plan for [facility] on discharge, will need bed and insurance auth Dysrhythmia/hypertension/hypomagnesemia-- Continue flecainide 100 mg p.o. twice daily, metoprolol tartrate 25 mg p.o. twice daily and aspirin 81 mg daily. hypomag resolved Gout-- Continue allopurinol 300 mg p.o. daily GERD-- Continue pantoprazole 40 mg every morning Depression-- Continue Prozac 10 mg daily BPH-- Continue finasteride 5 mg every morning
[2017-12-10] MEDS: GUAIFENESIN 600 MG TABCR PO SCH (21:11)
[2017-12-11] VITALS (7 sets, daily range): BP systolic 89–126; BP diastolic 57–79; PULSE 60–86; TEMP 36.4–37.1; O2SAT 93–97
[2017-12-11] MEDS: CIPROFLOXACIN HCL 0.3% OP SOLN 2.5 ML BTL OPL SCH ×4 (07:47→21:04)
[2017-12-11] MEDS: TRIAMCINOLONE ACET 0.1% OINT 15 GM TUBE TOP SCH ×2 (07:48→21:08)
[2017-12-11] MEDS: ASPIRIN 81 MG ECTAB PO SCH (07:48)
[2017-12-11] MEDS: CEFDINIR 300 MG CAP PO SCH ×2 (07:48→21:07)
[2017-12-11] MEDS: PANTOprazole SOD 40 MG TAB PO SCH (07:49)
[2017-12-11] MEDS: METOPROLOL TARTRATE 25 MG TAB PO SCH ×2 (07:49→21:07)
[2017-12-11] MEDS: FLECAINIDE ACETATE 100 MG TAB PO SCH ×2 (07:49→21:07)
[2017-12-11] MEDS: ALLOPURINOL 300 MG TAB PO SCH (07:50)
[2017-12-11] MEDS: FINASTERIDE 5 MG TAB PO SCH (07:50)
[2017-12-11] MEDS: DOCUSATE SODIUM 100 MG CAP PO SCH ×2 (07:50→21:05)
[2017-12-11] MEDS: FLUOXETINE HCL 10 MG CAP PO SCH (07:50)
[2017-12-11] MEDS: ALBUT/IPRATROP 3MG/0.5MG NEB 3 ML VIAL INH SCH (07:54)
[2017-12-11] MEDS: BOOST VANILLA PO SCH ×2 (08:00→21:05)
[2017-12-11] MEDS: GUAIFENESIN 600 MG TABCR PO SCH ×2 (09:37→21:07)
[2017-12-11 09:46] LABS: HEMATOCRIT 31.6 % (42-52); HEMOGLOBIN 10.7 g/dL (14.0-18.0); MEAN CELL VOLUME 90.5 fL (80-100); MEAN CORPUSCULAR HEMOGLOBIN 30.7 pg (25-34); MEAN CORPUSCULAR HGB CONC 33.9 g/dl (32-36); MEAN PLATELET VOLUME 11.2 fL (7.4-10.4); PLATELET COUNT 142 K/uL (130-400); RED CELL DISTRIBUTION WIDTH CV 16.7 % (11.5-14.5); RED CELL DISTRIBUTION WIDTH SD 54.7 fL (36.4-46.3); WHITE BLOOD COUNT 1.23 K/uL (4.8-10.8)
[2017-12-11] MEDS: IPRATROPIUM BROMIDE/ALBUTEROL respimat INH INH SCH ×3 (12:44→21:04)
--- NOTE | 2017-12-11 13:51 | Progress Note ---
Subjective Date of Service: Dec 11, 2017. Subjective Pt evaluation today including: conversation w/ patient, physical exam, lab review, review of inpatient medication list Pain: no pain PO Intake: adequate Voiding: no voiding problems patient feels good today, says it is the best he has felt in weeks coughing less, voice nearly normal eating well reviewed labs, Hb and platelets continue to trend up, still with neutropenia, neutrophils 0.32 today, going down despite Neupogen discussed discharge plan, go to [facility] once medically stable, still the plan Problem List Medical Problems: (1) Diarrhea Status: Acute (2) Dysphasia Status: Acute (3) Headache Status: Acute (4) Pancytopenia Status: Acute (5) Stroke-like symptoms Status: Acute (6) Vasovagal near syncope Status: Acute Review of Systems Constitutional: + weakness, + fatigue Respiratory: + cough All Other Systems: Reviewed and Negative Medications Current Inpatient Medications Medications (Trade) Dose Ordered Sig/Lisandro Route Start Time Stop Time Status Last Admin Dose Admin Acetaminophen (Tylenol Tab) 650 mg Q4H PRN PO 12/06/17 02:45 01/05/18 02:44 12/06/17 07:31 650 MG Allopurinol (Zyloprim Tab) 300 mg DAILY PO 12/06/17 08:00 01/05/18 08:59 12/11/17 07:50 300 MG Aspirin (Ecotrin Tab) 81 mg QAM PO 12/06/17 08:00 01/05/18 08:59 12/11/17 07:48 81 MG Diclofenac Sodium (Voltaren 1% Top Gel) 1 appln Q6H PRN EXT 12/06/17 02:45 01/05/18 02:44 Finasteride (Proscar Tab) 5 mg QAM PO 12/06/17 08:00 01/05/18 08:59 12/11/17 07:50 5 MG Flecainide Acetate (Tambocor Tab) 100 mg BID PO 12/06/17 08:00 01/05/18 08:59 12/11/17 07:49 100 MG Fluoxetine HCl (Prozac Cap) 10 mg DAILY PO 12/06/17 08:00 01/05/18 08:59 12/11/17 07:50 10 MG Lorazepam (Ativan Tab) 0.5 mg BID PRN PO 12/06/17 02:45 4/5/18 02:44 12/10/17 21:09 0.5 MG Metoprolol Tartrate (Lopressor Tab) 25 mg BID PO 12/06/17 08:00 01/05/18 08:59 12/11/17 07:49 25 MG Pantoprazole Sodium (Protonix Tab) 40 mg QAM PO 12/06/17 08:00 01/05/18 08:59 12/11/17 07:49 40 MG Triamcinolone Acetonide (Kenalog 0.1% Oint) 1 appln BID TOP 12/06/17 08:00 01/05/18 08:59 12/11/17 07:48 1 APPLN Ondansetron HCl (Zofran Odt) 8 mg Q6H PRN PO 12/06/17 02:45 01/05/18 02:44 12/06/17 18:14 8 MG Acetaminophen 100 ml @ 400 mls/hr Q8H PRN IV 12/06/17 02:45 01/05/18 02:44 Ciprofloxacin HCl (Ciprofloxacin 0.3% Op Soln) 2 drops QID OPL 12/06/17 08:00 12/16/17 08:59 12/11/17 12:44 2 DROPS Heparin Sodium (Porcine) (Heparin 100 Unit/ml 5ml Flush) 5 ml PRN PRN IV 12/06/17 12:45 01/05/18 12:44 12/09/17 03:44 5 ML Enteral Nutritional Formula (Boost) 1 can BID PO 12/06/17 20:00 01/05/18 19:59 12/11/17 08:00 1 CAN Docusate Sodium (coLACE CAP) 100 mg BID PO 12/07/17 20:00 01/06/18 19:59 12/11/17 07:50 100 MG Ondansetron HCl (Zofran Inj) 4 mg Q4H PRN IV 12/07/17 16:00 01/06/18 15:59 12/07/17 18:45 4 MG Cefdinir (Omnicef Cap) 300 mg BID PO 12/10/17 04:00 12/13/17 23:59 12/11/17 07:48 300 MG Guaifenesin (Mucinex Contr Rel Tab) 1,200 mg Q12 PO 12/10/17 21:00 01/09/18 20:59 12/11/17 09:37 1,200 MG Albuterol/ Ipratropium (Combivent Respimat Inh) 1 puffs Q4HWA INH 12/11/17 12:00 01/10/18 11:59 12/11/17 12:44 1 PUFFS Objective Vital Signs Date Time Temp Pulse Resp B/P (MAP) Pulse Ox O2 Delivery O2 Flow Rate FiO2 12/11/17 11:05 36.4 69 18 126/76 (93) 97 12/11/17 08:00 Room Air 12/11/17 08:00 36.8 68 18 120/79 (93) 95 Room Air 80 106/68 (81) 86 103/63 (76) 12/11/17 07:56 74 18 93 Room Air 12/11/17 04:57 36.8 72 18 125/70 (88) 94 Room Air 12/11/17 00:00 Room Air 12/10/17 23:37 37.3 73 16 96/60 (72) 94 Room Air 111/73 (86) 109/72 (84) 12/10/17 19:32 77 20 96 Room Air 12/10/17 18:52 36.6 79 18 113/70 (84) 96 12/10/17 16:30 Room Air 12/10/17 15:51 36.4 81 18 125/74 (91) 92 Room Air 86 108/70 (83) 87 101/61 (74) 12/10/17 15:04 74 20 93 Room Air Physical Exam General Appearance: WD/WN, no apparent distress Eyes: normal inspection, EOMI, sclerae normal ENT: normal ENT inspection, hearing grossly normal, pharynx normal Neck: supple, no adenopathy, no JVD, trachea midline Respiratory/Chest: chest non-tender, lungs clear, normal breath sounds, no respiratory distress, no accessory muscle use Cardiovascular: regular rate, rhythm, no edema, no gallop, no JVD, no murmur Abdomen: normal bowel sounds, non tender, soft, no organomegaly Extremities: normal range of motion, non-tender, normal inspection, no pedal edema, no calf tenderness, pelvis stable 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7 % Basophils % (Manual) 4.7 % Promyelocytes % 1.9 % Blast Cells % 0.9 % Neutrophils # (Manual) 0.32 K/uL Total Absolute Neutrophils 0.32 K/uL Lymphocytes # (Manual) 0.36 K/uL Total Absolute Lymphocytes 0.36 K/uL Monocytes # (Manual) 0.38 K/uL Eosinophils # (Manual) 0.07 K/uL Basophils # (Manual) 0.06 K/uL Promyelocytes # 0.02 K/uL Blast Cells # 0.01 K/uL Blood Smear Review Tear Drop Cells 1+ Ovalocytes 1+ Assessment and Plan 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 Bowen/anemia with hemoglobin 7.9/thrombocytopenia with platelets 74 on admission Antineoplastic chemotherapy induced pancytopenia Hb stable at 10.7, platelets up to 142, neutropenic again today with ANC 0.32 , worse than yesterday give Neupogen 480mcg dose today, received 300mcg on 12/09 and 12/10 hopeful that neutropenia will be resolved by tomorrow continue precautions Pneumonia-- [place], likely right side but could not tell on PA film change to Cefdinir today, today is day #6, complete 7 total on 12/12 evening dose Duonebs every 4 hours while awake and every 2 hours when necessary add Mucinex since mucous is thick Hoarseness: started with infection, could be related to URI or pneumonia? voice back to normal, no work up needed likely a result of URI Weakness - request PT/OT evaluations ambulated well, 400ft, okay to go home from therapy perspective, awaiting OT evaluation discussed with patient and family, they d/w CM 12/09 plan for [facility] on discharge, will need bed and insurance auth Dysrhythmia/hypertension/hypomagnesemia-- Continue flecainide 100 mg p.o. twice daily, metoprolol tartrate 25 mg p.o. twice daily and aspirin 81 mg daily. hypomag resolved Gout-- Continue allopurinol 300 mg p.o. daily GERD-- Continue pantoprazole 40 mg every morning Depression-- Continue Prozac 10 mg daily BPH-- Continue finasteride 5 mg every morning Plan: repeat CBC tomorrow, Neupogen as needed for neutropenia go to [facility] once accepted and insurance authorized, needs to be off neutropenic precautions complete treatment for pneumonia on 12/12
[2017-12-11] MEDS ORDERED: FILGRASTIM 480 MCG/1.6 ML VIAL SC ONE (14:00)
[2017-12-12] VITALS (8 sets, daily range): BP systolic 97–124; BP diastolic 62–72; PULSE 61–70; TEMP 36.5–37.3; O2SAT 92–96
[2017-12-12 05:56] LABS: HEMATOCRIT 33.5 % (42-52); HEMOGLOBIN 10.6 g/dL (14.0-18.0); MEAN CELL VOLUME 91.3 fL (80-100); MEAN CORPUSCULAR HEMOGLOBIN 28.9 pg (25-34); MEAN CORPUSCULAR HGB CONC 31.6 g/dl (32-36); MEAN PLATELET VOLUME 11.5 fL (7.4-10.4); NUCLEATED RED BLOOD CELL ABS 0.02 K/uL (0-0); PLATELET COUNT 160 K/uL (130-400); RED CELL DISTRIBUTION WIDTH CV 16.7 % (11.5-14.5); RED CELL DISTRIBUTION WIDTH SD 55.5 fL (36.4-46.3); WHITE BLOOD COUNT 3.86 K/uL (4.8-10.8)
[2017-12-12] MEDS: CIPROFLOXACIN HCL 0.3% OP SOLN 2.5 ML BTL OPL SCH ×4 (07:41→21:23)
[2017-12-12] MEDS: DOCUSATE SODIUM 100 MG CAP PO SCH ×2 (07:41→21:23)
[2017-12-12] MEDS: IPRATROPIUM BROMIDE/ALBUTEROL respimat INH INH SCH ×4 (07:41→21:21)
[2017-12-12] MEDS: TRIAMCINOLONE ACET 0.1% OINT 15 GM TUBE TOP SCH ×2 (07:42→21:26)
[2017-12-12] MEDS: FINASTERIDE 5 MG TAB PO SCH (07:42)
[2017-12-12] MEDS: PANTOprazole SOD 40 MG TAB PO SCH (07:42)
[2017-12-12] MEDS: FLUOXETINE HCL 10 MG CAP PO SCH (07:43)
[2017-12-12] MEDS: ASPIRIN 81 MG ECTAB PO SCH (07:43)
[2017-12-12] MEDS: CEFDINIR 300 MG CAP PO SCH ×2 (07:44→21:28)
[2017-12-12] MEDS: ALLOPURINOL 300 MG TAB PO SCH (07:44)
[2017-12-12] MEDS: BOOST VANILLA PO SCH ×2 (07:45→21:21)
[2017-12-12] MEDS: FLECAINIDE ACETATE 100 MG TAB PO SCH ×2 (07:46→21:28)
[2017-12-12] MEDS: METOPROLOL TARTRATE 25 MG TAB PO SCH ×2 (07:47→21:27)
[2017-12-12] MEDS: GUAIFENESIN 600 MG TABCR PO SCH ×2 (11:11→21:29)
--- NOTE | 2017-12-12 12:56 | Hospitalist Progress Note ---
Hospitalist Progress Note Date of Service Dec 12, 2017. (Asia Amaya CRNP) Subjective Pt evaluation today including: conversation w/ patient, physical exam, chart review, lab review, review of inpatient medication list Voiding: no voiding problems Mr. Guo is feeling mostly back to his baseline. He does have some weakness yet and some engel. He does not have much appetite ROS Constitutional: no chills, aches, sweats or fever Respiratory: no sob,cough, sputum, or wheezing Cardiac: no chest pain, palpitations, edema, orthopnea or lightheadedness GI: no abdominal pain, nausea, vomiting, diarrhea or constipation : no dysuria or hesitancy Extremities: no joint pain or weakness Skin: no rash All other systems reviewed and negative (Asia Amaya CRNP) Medications Medications Administered Medications (Trade) Dose Ordered Sig/Lisandro Route Start Time Stop Time Status Last Admin Dose Admin Sodium Chloride 500 ml @ 999 mls/hr Q31M STAT IV 12/05/17 22:36 12/05/17 23:06 DC 12/05/17 22:36 999 MLS/HR Lidocaine HCl (Viscous Lidocaine 2% Soln) 10 ml NOW STAT PO 12/05/17 23:26 12/05/17 23:28 DC 12/05/17 23:50 10 ML Al Hydroxide/Mg Hydroxide (Maalox Susp) 30 ml NOW STAT PO 12/05/17 23:26 12/05/17 23:28 DC 12/05/17 23:51 30 ML Acetaminophen (Tylenol Tab) 650 mg Q4H PRN PO 12/06/17 02:45 01/05/18 02:44 12/06/17 07:31 650 MG Allopurinol (Zyloprim Tab) 300 mg DAILY PO 12/06/17 08:00 01/05/18 08:59 12/12/17 07:44 300 MG Aspirin (Ecotrin Tab) 81 mg QAM PO 12/06/17 08:00 01/05/18 08:59 12/12/17 07:43 81 MG Finasteride (Proscar Tab) 5 mg QAM PO 12/06/17 08:00 01/05/18 08:59 12/12/17 07:42 5 MG Flecainide Acetate (Tambocor Tab) 100 mg BID PO 12/06/17 08:00 01/05/18 08:59 12/12/17 07:46 100 MG Fluoxetine HCl (Prozac Cap) 10 mg DAILY PO 12/06/17 08:00 01/05/18 08:59 12/12/17 07:43 10 MG Lorazepam (Ativan Tab) 0.5 mg BID PRN PO 12/06/17 02:45 01/05/18 02:44 12/10/17 21:09 0.5 MG Metoprolol Tartrate (Lopressor Tab) 25 mg BID PO 12/06/17 08:00 01/05/18 08:59 12/12/17 07:47 25 MG Pantoprazole Sodium (Protonix Tab) 40 mg QAM PO 12/06/17 08:00 01/05/18 08:59 12/12/17 07:42 40 MG Triamcinolone Acetonide (Kenalog 0.1% Oint) 1 appln BID TOP 12/06/17 08:00 01/05/18 08:59 12/12/17 07:42 1 APPLN Enteral Nutritional Formula (Boost) 1 can BID PO 12/06/17 08:00 12/06/17 15:31 DC 12/06/17 07:48 1 CAN Ceftriaxone Sodium 1 gm/ Dextrose 50 ml @ 100 mls/hr Q24H IV 12/06/17 04:00 12/09/17 08:09 DC 12/09/17 03:44 100 MLS/HR Ondansetron HCl (Zofran Odt) 8 mg Q6H PRN PO 12/06/17 02:45 01/05/18 02:44 12/06/17 18:14 8 MG Albuterol/ Ipratropium (Duoneb) 3 ml Q4RWA INH 12/06/17 08:00 12/11/17 08:32 DC 12/11/17 07:54 3 ML Ciprofloxacin HCl (Ciprofloxacin 0.3% Op Soln) 2 drops QID OPL 12/06/17 08:00 12/16/17 08:59 12/12/17 11:10 2 DROPS Magnesium Sulfate 1 gm/Prmx 100 ml @ 100 mls/hr NOW STAT IV 12/06/17 06:20 12/06/17 07:19 DC 12/06/17 11:36 100 MLS/HR Heparin Sodium (Porcine) (Heparin 100 Unit/ml 5ml Flush) 5 ml PRN PRN IV 12/06/17 12:45 01/05/18 12:44 12/12/17 05:36 5 ML Enteral Nutritional Formula (Boost) 1 can BID PO 12/06/17 20:00 01/05/18 19:59 12/12/17 07:45 1 CAN Docusate Sodium (coLACE CAP) 100 mg BID PO 12/07/17 20:00 01/06/18 19:59 12/12/17 07:41 100 MG Ondansetron HCl (Zofran Inj) 4 mg Q4H PRN IV 12/07/17 16:00 01/06/18 15:59 12/07/17 18:45 4 MG Filgrastim (Neupogen Sq) 300 mcg NOW ONCE SQ 12/09/17 11:00 12/09/17 11:01 DC 12/09/17 11:24 300 MCG Cefdinir (Omnicef Cap) 300 mg BID PO 12/10/17 04:00 12/13/17 23:59 12/12/17 07:44 300 MG Filgrastim (Neupogen Sq) 300 mcg ONE ONCE SQ 12/10/17 11:00 12/10/17 11:01 DC 12/10/17 11:57 300 MCG Guaifenesin (Mucinex Contr Rel Tab) 1,200 mg Q12 PO 12/10/17 21:00 01/09/18 20:59 12/12/17 11:11 1,200 MG Albuterol/ Ipratropium (Combivent Respimat Inh) 1 puffs Q4HWA INH 12/11/17 12:00 01/10/18 11:59 12/12/17 11:10 1 PUFFS Filgrastim (Neupogen Sq) 480 mcg ONE ONCE SC 12/11/17 14:00 12/11/17 14:01 DC 12/11/17 15:58 480 MCG (Asia Amaya CRNP) Objective Vital Signs Date Time Temp Pulse Resp B/P (MAP) Pulse Ox O2 Delivery O2 Flow Rate FiO2 12/12/17 08:24 92 Room Air 12/12/17 08:00 Room Air 12/12/17 07:43 70 99/63 (75) 3/12/18 07:42 70 97/62 (74) 12/12/17 07:40 36.8 70 14 102/65 (77) 92 Room Air 12/12/17 04:19 37.0 61 19 105/68 (80) 93 Room Air 12/12/17 00:00 Room Air 12/11/17 23:30 36.8 60 18 107/58 (74) 95 Room Air 12/11/17 19:15 37.1 72 18 113/71 (85) 94 Room Air 12/11/17 16:15 Room Air 12/11/17 14:18 36.5 68 17 107/67 (80) 96 Room Air 71 101/71 (81) 76 89/57 (68) (Asia Amaya CRNP) Physical Exam Notes: General: no distress Eyes: normal inspection, PERLL Respiratory: chest non tender, clear to auscultation, normal breath sounds, no respiratory distress, no accessory muscle use Cardiac: regular rate and rhythm, no rub or gallop, no murmur, no edema, no jvd GI/: active bowel sounds, no abd pain or tenderness, soft, non distended Extremities: normal range of motion, normal strength, non tender Neuro/Psych: alert and oriented x 3, normal mood and affect Skin: normal color, dry (Asia Amaya CRNP) Laboratory Results Last 24 Hours Test 12/12/17 05:36 White Blood Count 3.86 K/uL Red Blood Count 3.67 M/uL Hemoglobin 10.6 g/dL Hematocrit 33.5 % Mean Corpuscular Volume 91.3 fL Mean Corpuscular Hemoglobin 28.9 pg Mean Corpuscular Hemoglobin Concent 31.6 g/dl Platelet Count 160 K/uL Mean Platelet Volume 11.5 fL RDW Standard Deviation 55.5 fL RDW Coefficient of Variation 16.7 % Nucleated RBC Absolute Count (auto) 0.02 K/uL Neutrophils % (Manual) 37.9 % Lymphocytes % (Manual) 24.8 % Monocytes % (Manual) 14.2 % Eosinophils % (Manual) 7.1 % Basophils % (Manual) 2.7 % Myelocytes % 11.5 % Promyelocytes % 1.8 % Nucleated Red Blood Cells % 0.6 % Neutrophils # (Manual) 1.46 K/uL Total Absolute Neutrophils 1.46 K/uL Lymphocytes # (Manual) 0.96 K/uL Total Absolute Lymphocytes 0.96 K/uL Monocytes # (Manual) 0.55 K/uL Eosinophils # (Manual) 0.27 K/uL Basophils # (Manual) 0.10 K/uL Myelocytes # 0.44 K/uL Promyelocytes # 0.07 K/uL Hyposegmented Neutrophils 1+ (Asia Amaya CRNP) Assessment and Plan 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 Bowen/anemia with hemoglobin 7.9/thrombocytopenia with platelets 74 on admission Antineoplastic chemotherapy induced pancytopenia Hb stable at 10.6, platelets up to 160, neutropenia improved at 1.46 given Neupogen 480mcg dose yesterday, received 300mcg on 12/09 and 12/10 continue precautions Discussed with Dr. Bowen's office and they did not feel further inpatient treatment was necessary from their perspective - will see patient on Tuesday in the office Pneumonia-- [place], likely [place] side but could not tell on PA film change to Cefdinir 12/11, today is day #7, abx complete tonight Continue Duonebs every 4 hours while awake and every 2 hours when necessary Continue Mucinex Hoarseness: started with infection, could be related to URI or pneumonia? voice back to normal, no work up needed likely a result of URI Weakness - PT/OT evaluations [facility] has no available beds - case management working with patient - PT/OT to reassess Dysrhythmia/hypertension/hypomagnesemia-- Continue flecainide 100 mg p.o. twice daily, metoprolol tartrate 25 mg p.o. twice daily and aspirin 81 mg daily. hypomag resolved Gout-- Continue allopurinol 300 mg p.o. daily GERD-- Continue pantoprazole 40 mg every morning Depression-- Continue Prozac 10 mg daily BPH-- Continue finasteride 5 mg every morning Dispo - awaiting PT reevaluation, CM (Asia Amaya CRNP) Supervising Note Dr. Marinelli I performed a history and physical examination on the patient. I reviewed above note and agree with it. I discussed plan with APC and patient. During my face to face encounter with the patient, I answered all of the patient's questions. Patient reports that he his plan to continue with chemotherapy on discharge. However he states that he has had 4 treatments. Plan is to obtain 6 in total as per patient. Given how weak patient has felt with chemotherapy, I discussed possibility of stopping it or perhaps delaying it. Patient will discuss with onc next week at his outpatient appointment. (Woody Marinelli M.D.)
[2017-12-13] VITALS (7 sets, daily range): BP systolic 107–133; BP diastolic 69–78; PULSE 58–70; TEMP 36.6–37.2; O2SAT 94–96
[2017-12-13 09:24] LABS: CREATININE 1.09 mg/dl (0.60-1.40)
[2017-12-13 09:25] LABS: CALCIUM 9.6 mg/dl (8.5-10.1); POTASSIUM 3.6 mmol/L (3.5-5.1)
[2017-12-13 09:32] LABS: HEMATOCRIT 34.7 % (42-52); HEMOGLOBIN 11.8 g/dL (14.0-18.0); MEAN CELL VOLUME 91.1 fL (80-100); MEAN PLATELET VOLUME 11.4 fL (7.4-10.4); PLATELET COUNT 267 K/uL (130-400); RED CELL DISTRIBUTION WIDTH CV 16.8 % (11.5-14.5); RED CELL DISTRIBUTION WIDTH SD 55.6 fL (36.4-46.3)
[2017-12-13] MEDS: DOCUSATE SODIUM 100 MG CAP PO SCH ×2 (09:55→20:00)
[2017-12-13] MEDS: ASPIRIN 81 MG ECTAB PO SCH (09:56)
[2017-12-13] MEDS: ALLOPURINOL 300 MG TAB PO SCH (09:56)
[2017-12-13] MEDS: PANTOprazole SOD 40 MG TAB PO SCH (09:56)
[2017-12-13] MEDS: GUAIFENESIN 600 MG TABCR PO SCH ×2 (09:56→20:49)
[2017-12-13] MEDS: FLUOXETINE HCL 10 MG CAP PO SCH (09:57)
[2017-12-13] MEDS: CEFDINIR 300 MG CAP PO SCH ×2 (09:57→20:47)
[2017-12-13] MEDS: FINASTERIDE 5 MG TAB PO SCH (09:58)
[2017-12-13] MEDS: CIPROFLOXACIN HCL 0.3% OP SOLN 2.5 ML BTL OPL SCH ×4 (09:58→20:44)
[2017-12-13] MEDS: FLECAINIDE ACETATE 100 MG TAB PO SCH ×2 (09:58→20:47)
[2017-12-13] MEDS: TRIAMCINOLONE ACET 0.1% OINT 15 GM TUBE TOP SCH ×2 (09:59→20:51)
[2017-12-13] MEDS: IPRATROPIUM BROMIDE/ALBUTEROL respimat INH INH SCH ×4 (09:59→20:45)
[2017-12-13] MEDS: BOOST VANILLA PO SCH ×2 (09:59→20:00)
[2017-12-13] MEDS: METOPROLOL TARTRATE 25 MG TAB PO SCH ×2 (10:17→20:46)
--- NOTE | 2017-12-13 14:58 | Hospitalist Progress Note ---
Hospitalist Progress Note Date of Service Dec 13, 2017. (Asia Amaya CRNP) Subjective Pt evaluation today including: conversation w/ patient, physical exam, chart review, lab review, review of inpatient medication list Voiding: no voiding problems Mr. Guo feels ok but still a bit sob when he walks. He has a non productive cough. ROS Constitutional: no chills, aches, sweats or fever Respiratory: see HPI Cardiac: no chest pain, palpitations, edema, orthopnea or lightheadedness GI: no abdominal pain, nausea, vomiting, diarrhea or constipation : no dysuria or hesitancy Extremities: no joint pain or weakness Skin: no rash All other systems reviewed and negative (Asia Amaya CRNP) Medications Medications Administered Medications (Trade) Dose Ordered Sig/Lisandro Route Start Time Stop Time Status Last Admin Dose Admin Sodium Chloride 500 ml @ 999 mls/hr Q31M STAT IV 12/05/17 22:36 12/05/17 23:06 DC 12/05/17 22:36 999 MLS/HR Lidocaine HCl (Viscous Lidocaine 2% Soln) 10 ml NOW STAT PO 12/05/17 23:26 12/05/17 23:28 DC 12/05/17 23:50 10 ML Al Hydroxide/Mg Hydroxide (Maalox Susp) 30 ml NOW STAT PO 12/05/17 23:26 12/05/17 23:28 DC 12/05/17 23:51 30 ML Acetaminophen (Tylenol Tab) 650 mg Q4H PRN PO 12/06/17 02:45 01/05/18 02:44 12/06/17 07:31 650 MG Allopurinol (Zyloprim Tab) 300 mg DAILY PO 12/06/17 08:00 01/05/18 08:59 12/13/17 09:56 300 MG Aspirin (Ecotrin Tab) 81 mg QAM PO 12/06/17 08:00 01/05/18 08:59 12/13/17 09:56 81 MG Finasteride (Proscar Tab) 5 mg QAM PO 12/06/17 08:00 01/05/18 08:59 12/13/17 09:58 5 MG Flecainide Acetate (Tambocor Tab) 100 mg BID PO 12/06/17 08:00 01/05/18 08:59 12/13/17 09:58 100 MG Fluoxetine HCl (Prozac Cap) 10 mg DAILY PO 12/06/17 08:00 01/05/18 08:59 12/13/17 09:57 10 MG Lorazepam (Ativan Tab) 0.5 mg BID PRN PO 12/06/17 02:45 01/05/18 02:44 12/10/17 21:09 0.5 MG Metoprolol Tartrate (Lopressor Tab) 25 mg BID PO 12/06/17 08:00 01/05/18 08:59 12/13/17 10:17 25 MG Pantoprazole Sodium (Protonix Tab) 40 mg QAM PO 12/06/17 08:00 01/05/18 08:59 12/13/17 09:56 40 MG Triamcinolone Acetonide (Kenalog 0.1% Oint) 1 appln BID TOP 12/06/17 08:00 01/05/18 08:59 12/13/17 09:59 1 APPLN Enteral Nutritional Formula (Boost) 1 can BID PO 12/06/17 08:00 12/06/17 15:31 DC 12/06/17 07:48 1 CAN Ceftriaxone Sodium 1 gm/ Dextrose 50 ml @ 100 mls/hr Q24H IV 12/06/17 04:00 12/09/17 08:09 DC 12/09/17 03:44 100 MLS/HR Ondansetron HCl (Zofran Odt) 8 mg Q6H PRN PO 12/06/17 02:45 01/05/18 02:44 12/06/17 18:14 8 MG Albuterol/ Ipratropium (Duoneb) 3 ml Q4RWA INH 12/06/17 08:00 12/11/17 08:32 DC 12/11/17 07:54 3 ML Ciprofloxacin HCl (Ciprofloxacin 0.3% Op Soln) 2 drops QID OPL 12/06/17 08:00 12/16/17 08:59 12/13/17 12:48 2 DROPS Magnesium Sulfate 1 gm/Prmx 100 ml @ 100 mls/hr NOW STAT IV 12/06/17 06:20 12/06/17 07:19 DC 12/06/17 11:36 100 MLS/HR Heparin Sodium (Porcine) (Heparin 100 Unit/ml 5ml Flush) 5 ml PRN PRN IV 12/06/17 12:45 01/05/18 12:44 12/13/17 10:29 5 ML Enteral Nutritional Formula (Boost) 1 can BID PO 12/06/17 20:00 01/05/18 19:59 12/12/17 21:21 1 CAN Docusate Sodium (coLACE CAP) 100 mg BID PO 12/07/17 20:00 01/06/18 19:59 12/12/17 21:23 100 MG Ondansetron HCl (Zofran Inj) 4 mg Q4H PRN IV 12/07/17 16:00 01/06/18 15:59 12/07/17 18:45 4 MG Filgrastim (Neupogen Sq) 300 mcg NOW ONCE SQ 12/09/17 11:00 12/09/17 11:01 DC 12/09/17 11:24 300 MCG Cefdinir (Omnicef Cap) 300 mg BID PO 12/10/17 04:00 12/13/17 23:59 12/13/17 09:57 300 MG Filgrastim (Neupogen Sq) 300 mcg ONE ONCE SQ 12/10/17 11:00 12/10/17 11:01 DC 12/10/17 11:57 300 MCG Guaifenesin (Mucinex Contr Rel Tab) 1,200 mg Q12 PO 12/10/17 21:00 01/09/18 20:59 12/13/17 09:56 1,200 MG Albuterol/ Ipratropium (Combivent Respimat Inh) 1 puffs Q4HWA INH 12/11/17 12:00 01/10/18 11:59 12/13/17 12:48 1 PUFFS Filgrastim (Neupogen Sq) 480 mcg ONE ONCE SC 12/11/17 14:00 12/11/17 14:01 DC 12/11/17 15:58 480 MCG (Asia Amaya, SUNSHINE) Objective Vital Signs Date Time Temp Pulse Resp B/P (MAP) Pulse Ox O2 Delivery O2 Flow Rate FiO2 12/13/17 12:01 37.2 70 18 107/69 (82) 96 Room Air 12/13/17 10:00 Room Air 12/13/17 07:10 37.1 63 18 133/76 (95) 94 Room Air 12/13/17 03:25 36.7 61 18 113/73 (86) 96 Room Air 12/13/17 00:05 Room Air 12/12/17 22:55 37.3 65 18 112/70 (84) 95 Room Air 12/12/17 20:05 Room Air 12/12/17 15:38 36.5 67 20 111/72 (85) 95 Room Air 12/12/17 15:00 Room Air (Asia Amaya CRNP) Physical Exam Notes: General: no distress Eyes: normal inspection, PERLL Respiratory: chest non tender, clear to auscultation, normal breath sounds, no respiratory distress, no accessory muscle use Cardiac: regular rate and rhythm, no rub or gallop, no murmur, no edema, no jvd GI/: active bowel sounds, no abd pain or tenderness, soft, non distended Extremities: normal range of motion, normal strength, non tender Neuro/Psych: alert and oriented x 3, normal mood and affect Skin: normal color, dry (Asia Amaya CRNP) Laboratory Results Last 24 Hours Test 12/13/17 08:36 White Blood Count 21.60 K/uL Red Blood Count 3.81 M/uL Hemoglobin 11.8 g/dL Hematocrit 34.7 % Mean Corpuscular Volume 91.1 fL Mean Corpuscular Hemoglobin 31.0 pg Mean Corpuscular Hemoglobin Concent 34.0 g/dl Platelet Count 267 K/uL Mean Platelet Volume 11.4 fL RDW Standard Deviation 55.6 fL RDW Coefficient of Variation 16.8 % Neutrophils % (Manual) 45.3 % Lymphocytes % (Manual) 10.3 % Monocytes % (Manual) 16.2 % Basophils % (Manual) 0.9 % Metamyelocytes % 6.8 % Myelocytes % 17.9 % Promyelocytes % 2.6 % Neutrophils # (Manual) 9.78 K/uL Total Absolute Neutrophils 9.78 K/uL Lymphocytes # (Manual) 2.22 K/uL Total Absolute Lymphocytes 2.22 K/uL Monocytes # (Manual) 3.50 K/uL Basophils # (Manual) 0.19 K/uL Metamyelocytes # 1.47 K/uL Myelocytes # 3.87 K/uL Promyelocytes # 0.56 K/uL Large Platelets 1+ Giant Platelets 1+ Poikilocytosis PRESENT Anisocytosis PRESENT Sodium Level 133 mmol/L Potassium Level 3.6 mmol/L Chloride Level 98 mmol/L Carbon Dioxide Level 28 mmol/L Anion Gap 7.0 mmol/L Blood Urea Nitrogen 10 mg/dl Creatinine 1.09 mg/dl Est Creatinine Clear Calc Drug Dose 44.7 ml/min Estimated GFR () 71.4 Estimated GFR (Non- 61.6 BUN/Creatinine Ratio 9.2 Random Glucose 125 mg/dl Calcium Level 9.6 mg/dl (Asia Amaya CRNP) Assessment and Plan 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 Bowen/anemia with hemoglobin 7.9/thrombocytopenia with platelets 74 on admission Antineoplastic chemotherapy induced pancytopenia Hb stable at 11, platelets up to 267, neutrophils 9.78 given Neupogen 480mcg dose 12/11, received 300mcg on 12/09 and 12/[address] Bowen's office and they did not feel further inpatient treatment was necessary from their perspective - will see patient on Tuesday in the office prp, cbc am Pneumonia-- [place], likely right side but could not tell on PA film change to Cefdinir 12/11 from ceftriaxone, today is day 5 of abx Continue Duonebs every 4 hours while awake and every 2 hours when necessary Continue Mucinex Hoarseness: started with infection, could be related to URI or pneumonia? voice back to normal, no work up needed likely a result of URI Weakness - PT/OT evaluations [facility] has no available beds and patient was denied for SNF - continuing to work on outpatient placement/home health Dysrhythmia/hypertension/hypomagnesemia-- Continue flecainide 100 mg p.o. twice daily, metoprolol tartrate 25 mg p.o. twice daily and aspirin 81 mg daily. hypomag resolved Gout-- Continue allopurinol 300 mg p.o. daily GERD-- Continue pantoprazole 40 mg every morning Depression-- Continue Prozac 10 mg daily BPH-- Continue finasteride 5 mg every morning (Asia Amaya CRNP) Supervising Note Dr. Marinelli I performed a history and physical examination on the patient. I reviewed above note and agree with it. I discussed plan with APC and patient. During my face to face encounter with the patient, I answered all of the patient's questions. Patient had a dose of ativan in early AM. Likely playing a role with her delirium. She did improve in the afternoon. Will continue to monitor her for another day. Hoping that her mentation improves here. She may though benefit from being in a more recognizable and stable environment like home for discharge with home services. (Woody Marinelli M.D.)
[2017-12-14 04:10] VITALS: BP 122/77; PULSE 57; TEMP 36.9; O2SAT 95
[2017-12-14 06:28] LABS: CREATININE 1.06 mg/dl (0.60-1.40)
[2017-12-14 06:31] LABS: HEMATOCRIT 32.3 % (42-52); HEMOGLOBIN 10.6 g/dL (14.0-18.0); MEAN CELL VOLUME 93.1 fL (80-100); MEAN CORPUSCULAR HEMOGLOBIN 30.5 pg (25-34); MEAN CORPUSCULAR HGB CONC 32.8 g/dl (32-36); NUCLEATED RED BLOOD CELL ABS 0.05 K/uL (0-0); PLATELET COUNT 294 K/uL (130-400); RED CELL DISTRIBUTION WIDTH CV 16.8 % (11.5-14.5); RED CELL DISTRIBUTION WIDTH SD 56.6 fL (36.4-46.3); WHITE BLOOD COUNT 31.63 K/uL (4.8-10.8)
[2017-12-14 06:46] LABS: POTASSIUM 4.3 mmol/L (3.5-5.1)
[2017-12-14 07:53] VITALS: BP 118/74; PULSE 62; TEMP 36.6; O2SAT 95
[2017-12-14] MEDS: FLUOXETINE HCL 10 MG CAP PO SCH (08:31)
[2017-12-14] MEDS: FINASTERIDE 5 MG TAB PO SCH (08:31)
[2017-12-14] MEDS: PANTOprazole SOD 40 MG TAB PO SCH (08:32)
[2017-12-14] MEDS: ASPIRIN 81 MG ECTAB PO SCH (08:32)
[2017-12-14] MEDS: GUAIFENESIN 600 MG TABCR PO SCH (08:32)
[2017-12-14] MEDS: METOPROLOL TARTRATE 25 MG TAB PO SCH (08:32)
[2017-12-14] MEDS: ALLOPURINOL 300 MG TAB PO SCH (08:32)
[2017-12-14] MEDS: DOCUSATE SODIUM 100 MG CAP PO SCH (08:32)
[2017-12-14] MEDS: BOOST VANILLA PO SCH (08:33)
[2017-12-14] MEDS: FLECAINIDE ACETATE 100 MG TAB PO SCH (08:33)
[2017-12-14] MEDS: TRIAMCINOLONE ACET 0.1% OINT 15 GM TUBE TOP SCH (08:34)
[2017-12-14] MEDS: IPRATROPIUM BROMIDE/ALBUTEROL respimat INH INH SCH ×2 (08:34→13:07)
[2017-12-14] MEDS: CIPROFLOXACIN HCL 0.3% OP SOLN 2.5 ML BTL OPL SCH ×2 (08:34→13:07)
[2017-12-14 09:21] VITALS: O2SAT 95
[2017-12-14] MEDS: ONDANSETRON 8MG OD TAB PO PRN (09:51)
[2017-12-14 12:00] VITALS: BP 126/69; PULSE 64; TEMP 36.2; O2SAT 93
--- NOTE | 2017-12-14 13:54 | Discharge Instructions ---
Discharge Instructions Date of Service Dec 14, 2017. Admission Reason for Admission: Metastatic Lung Cancer, Symptomatic Anemia Discharge Discharge Diagnosis / Problem: Symptomatic anemia, pneumonia Discharge Goals Goal(s): Decrease discomfort, Improve disease control Activity Recommendations Activity Limitations: resume your previous activity . Instructions / Follow-Up Instructions / Follow-Up Please follow up with your primary care provider within about a week Please keep your appointment with oncology on Tuesday Please have your blood work drawn tomorrow Current Hospital Diet Patient's current hospital diet: Regular Diet Discharge Diet Recommended Diet: Regular Diet Procedures Procedures Performed: Soft tissue neck CT Chest xray Pending Studies Studies pending at discharge: no Medical Emergencies . Who to Call and When: Medical Emergencies: If at any time you feel your situation is an emergency, please call 911 immediately. . Non-Emergent Contact Non-Emergency issues call your: Primary Care Provider, Oncologist Call Non-Emergent contact if: you have any medication questions . . "Provider Documentation" section prepared by Asia Amaya. .
--- NOTE | 2017-12-14 14:09 | Discharge Summary ---
Discharge Summary Date of Service Dec 14, 2017. Discharge Summary Admission Date: Dec 06, 2017 at 02:32 Discharge Date: Dec 14, 2017 Discharge Disposition: Home with services Principal Diagnosis: Pancytopenia, pneumonia Immunizations: Have You Had Influenza Vaccine: Unknown History of Tetanus Vaccine?: Unknown History of Pneumococcal: Unknown History of Hepatitis B Vaccine: Unknown Procedures: CT SCAN OF THE NECK WITH IV CONTRAST CLINICAL HISTORY: Dysphagia. COMPARISON STUDY: CT of the cervical spine dated 11/15/2017. Nuclear bone scan dated 12/05/2017. TECHNIQUE: Following the IV administration of 92 cc of Optiray 320, CT scan of the soft tissues of the neck was performed from the skull base to the upper chest. Images are reviewed in the axial, sagittal, and coronal planes. IV contrast was administered without complication. A dose lowering technique was utilized adhering to the principles of ALARA. CT DOSE: 369.59 mGy.cm FINDINGS: Pharynx: The nasopharynx, oropharynx, and laryngeal pharynx are normal in appearance. The pharyngeal airway is widely patent. There is no evidence of mass lesion. The vocal cords are symmetric. The parapharyngeal fat is well maintained. The prevertebral/retropharyngeal soft tissues are within normal limits. No fluid collection is identified. Lymphadenopathy: No cervical lymphadenopathy is seen. Thyroid: Normal in size and attenuation. Salivary glands: The parotid and submandibular glands are within normal limits. Brain parenchyma: The visualized brain parenchyma at the skull base is normal in appearance noting age-related involutional change. Vascular structures: A left internal jugular central venous infusion port is in place. The carotid arteries and jugular veins are widely patent. Atherosclerotic calcification is seen in the carotid bulbs. Skeletal structures: The skeletal structures are osteopenic. Imaged portions of the calvarium at the skull base are within normal limits. The cervical spine appears intact. An indeterminant sclerotic focus is seen in the body of C2. Sinuses and mastoids: Air-fluid levels and mucosal thickening are seen within the maxillary antra. Moderate mucosal thickening is also seen throughout the ethmoid sinuses. Mild mucosal thickening is seen within the frontal and sphenoid sinuses. The mastoid air cells are well pneumatized. Orbits: The bony orbits are intact. Orbital contents are normal in appearance noting bilateral ocular lens implants. Lung apices: Visualized apical lung parenchyma is clear. IMPRESSION: 1. Unremarkable CT scan of the soft tissues of the neck. 2. Paranasal sinus disease as above. 3. A sclerotic lesion is seen in the body of C2 and likely represents a focus of metastatic disease. Electronically signed by: Gaston Barcenas M.D. 12/06/2017 7:58 AM CHEST 2 VIEWS ROUTINE CLINICAL HISTORY: Weakness. Cough. COMPARISON STUDY: November 14, 2017 FINDINGS: The heart is mildly enlarged. There is aortic tortuosity/ectasia. There is a left subclavian A-Port catheter present. There is slight interstitial thickening. There is focal airspace opacification visualized in the lateral view posteriorly. It is difficult to determine whether this is in the left lower lobe or right lower lobe. IMPRESSION: Focal pulmonary consolidation involving one of the posterior lung bases as visualized on the lateral view. This is suspicious for a small focal pneumonia. Clinical and radiographic follow-up is recommended. Electronically signed by: Santana Negron M.D. 12/06/2017 7:00 AM Medication Reconciliation Continued Medications: Acetaminophen (Tylenol) 500 Mg Tab 500 MG PO Q4H PRN for Pain, TAB Allopurinol (Allopurinol) 300 Mg Tab 300 MG PO DAILY Aspirin (Aspirin) 81 Mg Tab 81 MG PO QAM Diclofenac Sodium (Topical) (Voltaren 1% Top Gel) 1 % Gel 1 APPLN TD Q6H PRN for Pain Diphenhydramine Hcl (Benadryl Allergy) 25 Mg Tab 1 TAB PO QAM PRN for ALLERGIES Finasteride (Proscar) 5 Mg Tab 5 MG PO QAM, TAB Flecainide (Tambocor) 100 Mg Tab 100 MG PO BID, TAB Fluoxetine (Prozac) 10 Mg Cap 10 MG PO DAILY, CAP Lorazepam (Ativan) 0.5 Mg Tab 0.5 MG PO BID PRN for Anxiety, TAB Methylcellulose (Laxative) (Citrucel) 500 Mg Tab 500 MG PO PRN for Constipation Metoprolol Tartrate (Lopressor) 25 Mg Tab 25 MG PO BID, TAB Ondansetron Hcl (Zofran) 8 Mg Tab 8 MG PO Q8 PRN for Nausea, TAB Pantoprazole (Protonix) 40 Mg Tab 40 MG PO QAM Triamcinolone Acet (Triamcinolone Acetonide) 45 Appln/15 Gm Oint 1 APPLN TOP BID [Boost] () 1 CAN LIQD 1 CAN PO BID for 30 Days Discharge Exam ROS Constitutional: no chills, aches, sweats or fever Respiratory: no sob,cough, sputum, or wheezing Cardiac: no chest pain, palpitations, edema, orthopnea or lightheadedness GI: no abdominal pain, nausea, vomiting, diarrhea or constipation : no dysuria or hesitancy Extremities: no joint pain or weakness Skin: no rash All other systems reviewed and negative PE General: no distress Eyes: normal inspection, PERLL Respiratory: chest non tender, clear to auscultation, normal breath sounds, no respiratory distress, no accessory muscle use Cardiac: regular rate and rhythm, no rub or gallop, no murmur, no edema, no jvd GI/: active bowel sounds, no abd pain or tenderness, soft, non distended Extremities: normal range of motion, normal strength, non tender Neuro/Psych: alert and oriented x 3, normal mood and affect Skin: normal color, dry Hospital Course The patient is an 87-year-old male who presented to the emergency department with generalized weakness, hoarseness, intermittent cough and sore throat over the past week. He receives chemotherapy from Dr.Nilesh Bowen Tuesday, Tuesday and Tuesday, and then has 18 days off. He did receive chemotherapy last week. Antineoplastic chemotherapy induced pancytopenia resolved - initially Hgb was 7.2, Neutrophils as low as 0.3, platelets 45 given Neupogen 480mcg dose 12/11, received 300mcg on 12/09 and 12/10 - WBCs are 31.63 today and neutrophils 14.6- will have patient draw cbc tomorrow outpatient to trend Discussed with Dr. Bowen's office and they did not feel further inpatient treatment was necessary from their perspective - will see patient on Tuesday in the office Pneumonia-- diagnosed in the base, likely right side but could not tell on PA film change to Cefdinir from ceftriaxone, last day was 12/13 for 7 day regimen Received Duonebs every 4 hours while awake and every 2 hours when necessary and Mucinex Hoarseness: started with infection, could be related to URI or pneumonia? voice back to normal, no work up needed likely a result of URI Weakness - PT/OT evaluations patient to home with home health Dysrhythmia/hypertension/hypomagnesemia-- Continue flecainide 100 mg p.o. twice daily, metoprolol tartrate 25 mg p.o. twice daily and aspirin 81 mg daily. hypomag resolved Gout-- Continue allopurinol 300 mg p.o. daily GERD-- Continue pantoprazole 40 mg every morning Depression-- Continue Prozac 10 mg daily BPH-- Continue finasteride 5 mg every morning Total Time Spent: Greater than 30 minutes This includes examination of the patient, discharge planning, medication reconciliation, and communication with other providers. Discharge Instructions Please refer to the electronic Patient Visit Report (Discharge Instructions) for additional information. Follow-Up Dr. Bowen on Tuesday PCP in a week CBC tomorrow Additional Copies To David Bowen M.D.
[2017-12-14 15:27] VITALS: BP 128/80; PULSE 66; TEMP 36.7; O2SAT 92
[2017-12-14 17:02] VITALS: BP 128/80; PULSE 66; TEMP 36.7; O2SAT 92
== END 2017-12-14 17:26 | disposition home health service (06) | DRG 180 ==
LOC: C.EDB 22:21 → C.4E 12-06 02:32 → EDBEDREQSVC 12-06 02:41 → ENRESERV 12-06 02:48
PROVIDERS: ADMIT Hospitalist; ATTEND Internal Medicine Sports Medicine
DX: C34.90 Malignant neoplasm of unspecified part of unspecified bronchus or lung (principal); D61.810 Antineoplastic chemotherapy induced pancytopenia; J18.9 Pneumonia, unspecified organism; C78.7 Secondary malignant neoplasm of liver and intrahepatic bile duct; C79.51 Secondary malignant neoplasm of bone; J06.9 Acute upper respiratory infection, unspecified; I10 Essential (primary) hypertension; E83.42 Hypomagnesemia; M10.9 Gout, unspecified; F32.9 Major depressive disorder, single episode, unspecified; N40.0 Benign prostatic hyperplasia without lower urinary tract symptoms; D63.0 Anemia in neoplastic disease; R53.1 Weakness; Z87.891 Personal history of nicotine dependence; Z79.82 Long term (current) use of aspirin; Z88.2 Allergy status to sulfonamides; Z87.440 Personal history of urinary (tract) infections; Z80.9 Family history of malignant neoplasm, unspecified; Z82.49 Family history of ischemic heart disease and other diseases of the circulatory system

== ENCOUNTER → 2017-12-05 | Outpatient (CLI) | payer OTHER ==
[~2017-12-05] MED LIST changes: -OPTIRAY 320 IV PRN
--- NOTE | 2017-12-05 17:00 | DIAGNOSTIC IMAGING REPORT ---
WHOLE-BODY NUCLEAR BONE SCAN CLINICAL HISTORY: Metastatic small cell lung cancer. COMPARISON STUDY: CT scan of the chest, abdomen, and pelvis dated 11/22/2017. TECHNIQUE: Three hours following the IV administration of 26.6 mCi of technetium 99m MDP, whole body nuclear bone scan was performed in the anterior and posterior projections. FINDINGS: There are numerous foci of abnormal tracer deposition identified, typical in appearance for osseous metastatic disease. Lesions are identified within the body of the sternum, the thoracic spine, the left ilium, and numerous bilateral ribs. Typically degenerative uptake is identified shoulders, hips, knees, wrists, and ankles. There is expected excreted activity within the renal collecting system and bladder. IMPRESSION: Findings are consistent with multifocal osseous metastatic disease as detailed above. This corresponds to numerous small sclerotic bone lesions seen by CT. Electronically signed by: Gaston Barcenas M.D. 12/05/2017 4:58 PM Dictated Date/Time: 12/05/2017 4:53 PM
== END | disposition home or self-care (01) ==
LOC: C.NUCL 13:23
PROVIDERS: ATTEND Internal Medicine Hematology
DX: Z51.11 Encounter for antineoplastic chemotherapy (principal); C34.91 Malignant neoplasm of unspecified part of right bronchus or lung; C78.7 Secondary malignant neoplasm of liver and intrahepatic bile duct

== ENCOUNTER → 2017-12-16 | Outpatient (CLI) | payer OTHER ==
[~2017-12-16] MED LIST changes: +ACET-1256 PO; -ACET-24 PO; -ATV5 PO; +DICL1GEL12 TD; -DXM4 PO; -FEXO1TAB49 PO; -FLUO10CA24 PO; +FLUO10CA48 PO; +LORA-741 PO; +ONDA-170 PO; +PANT40TA PO; -PRT40 PO; -VLTG EXT
[2017-12-16 17:17] LABS: HEMATOCRIT 33.9 % (42-52); HEMOGLOBIN 11.2 g/dL (14.0-18.0); MEAN CELL VOLUME 93.6 fL (80-100); MEAN CORPUSCULAR HEMOGLOBIN 30.9 pg (25-34); MEAN PLATELET VOLUME 11.5 fL (7.4-10.4); PLATELET COUNT 421 K/uL (130-400); RED CELL DISTRIBUTION WIDTH CV 17.2 % (11.5-14.5); RED CELL DISTRIBUTION WIDTH SD 58.4 fL (36.4-46.3)
--- NOTE | 2017-12-28 11:23 | CODING QUERY NO DIAGNOSIS ---
Valid Physician Order Needed A valid physician order must be submitted in order to properly bill for the service(s) provided, including date of service(s), valid diagnosis, and physician signature. If these tests are done on a recurring basis the original physican order must be submitted in order to code and bill for the service(s) provided. Please fax us the original, signed physician order so that we may expedite billing to [phone] DOS 12/16/17 * CBC W/ DIFF ORDERED BY DR. WALLIS Thank you [facility]
--- NOTE | 2018-01-12 13:33 | CODING QUERY NO DIAGNOSIS ---
TREATMENT RENDERED WITHOUT A DIAGNOSIS To promote full compliance with coding requirements relating to patient care, physician participation is requested in all cases of masonry contractor uncertainty. Please assist us with providing a diagnosis/symptom for the test(s) below: A diagnosis/symptom was not documented on your Order. A valid diagnosis/symptom is required to bill all insurances. Please remember that we are unable to code a diagnosis of rule out, probable, possible, questionable, or suspected. Tests that require a diagnosis: DOS: 12/16/17 * CBC W/ DIFF DIAGNOSIS: Provider Signature: Date: Thank you [facility] Once completed, please kindly fax back to [phone] For questions please call [phone]
== END | disposition home or self-care (01) ==
LOC: C.LABSPEC 16:32
PROVIDERS: ATTEND Internal Medicine Hematology
DX: C34.91 Malignant neoplasm of unspecified part of right bronchus or lung (principal); C79.51 Secondary malignant neoplasm of bone; C78.7 Secondary malignant neoplasm of liver and intrahepatic bile duct

== ENCOUNTER → 2018-01-17 | Outpatient (CLI) | payer OTHER | END | disposition home or self-care (01) | LOC: C.LAB 15:39 | PROVIDERS: ATTEND Internal Medicine Cardiovascular Disease | DX: I10 Essential (primary) hypertension (principal) ==